=== PATIENT | female | born 1950 | race Caucasian/White ===

== ENCOUNTER 2019-05-07 16:22 | Emergency (ER) | payer MEDICARE ==
[~2019-05-07] VITALS: Ht 162.6 cm; Wt 59.9 kg
--- NOTE | 2019-05-07 16:21 | NUR ---
Note undone in EDM - 05/07/19 at 1640 by MARCIAL ED Nurse Note: PT BROUGHT IN TO ER BY [id number] FROM HOME. AOX4. PT C/O FEELING WEAK AND DIZZY X 1 WEEK AGO. PT ALSO C/O NAUSEA, 2 EPISODES OF VOMITING AND DIARRHEA X TODAY. PT STATES SHE HAS BEEN THROWING UP ENSURE DRINK. PT STATES SHE HAD ABOUT 3 FALLS DUE TO DIZZINESS THIS WEEK AND DID HIT HER HEAD BUT DENIES LOC. ZOFRAN 4MG GIVEN EN ROUTE BY EMS. PT DENIES NAUSEA AT THIS TIME. NO ACTIVE VOMITING. VSS.
--- NOTE | 2019-05-07 16:22 | NUR ---
ED Nurse Note: PT BROUGHT IN TO ER BY [id number] FROM HOME. AOX4. PT C/O FEELING WEAK AND DIZZY X 1 WEEK AGO. PT ALSO C/O NAUSEA, 2 EPISODES OF VOMITING AND DIARRHEA X TODAY. PT STATES SHE HAS BEEN THROWING UP ENSURE DRINK. PT STATES SHE HAD ABOUT 3 FALLS DUE TO DIZZINESS THIS WEEK AND DID HIT HER HEAD BUT DENIES LOC. ZOFRAN 4MG GIVEN EN ROUTE BY EMS. PT DENIES NAUSEA AT THIS TIME. NO ACTIVE VOMITING. PT DENIES ANY PAIN. VSS.
[2019-05-07 16:37] VITALS: BP 122/87
--- NOTE | 2019-05-07 16:48 | NUR ---
ED Nurse Note: PT TO CT VIA DEE.
--- NOTE | 2019-05-07 17:10 | NUR ---
ED Nurse Note: PT BACK FROM CT VIA DEE.
[2019-05-07 17:19] LABS: HEMATOCRIT 35.5 % (37.0-47.0); HEMOGLOBIN 12.2 G/DL (12.0-16.0); LYMPHOCYTES % (AUTO) 14.7 % (20.0-45.0); MEAN CORPUSCULAR VOLUME 87 FL (80-99); NEUTROPHILS % (AUTO) 72.4 % (45.0-75.0); PLATELET COUNT 137 K/UL (150-450); RED BLOOD COUNT 4.06 M/UL (4.20-5.40); RED CELL DISTRIBUTION WIDTH 15.5 % (11.6-14.8); WHITE BLOOD COUNT 9.9 K/UL (4.8-10.8)
--- NOTE | 2019-05-07 17:35 | Diagnostic Imaging Report ---
Indication: Headache Technique: Contiguous 5 mm thick transaxial imaging of the head obtained in a Siemens Sensation [address] scanner. Soft tissue and bone windows generated. Automatic Exposure Control was utilized. Total Dose length Product (DLP): 1333.[address] Dose Index Volume (CTDIvol): 70.38 mGy Comparison: none Findings: There is a hypodense subdural collection over the right cerebral hemisphere measuring about 8 mm on transaxial images. This is likely an old subdural hematoma. There is no mass effect on the underlying cerebrum with relatively symmetric appearing sulci. There is no midline shift. Generalized atrophy of the brain is present. The ventricles are slightly prominent. Small cystic foci noted within the basal ganglia likely lacunar infarcts. Patchy low attenuation of periventricular white matter noted. IMPRESSION: No acute intracranial bleed, mass effect or edema. Suspected old subdural hematoma over the right cerebral convexity. Generalized atrophy of the brain and evidence of chronic small vessel disease. [facility] has communicated the preliminary results to the Emergency Department. Their findings are largely concordant with this report. The CT scanner at [facility] is accredited by the [employer] and the scans are performed using dose optimization techniques as appropriate to a performed exam including Automatic Exposure control.
[2019-05-07 17:38] LABS: ANION GAP 17 mmol/L (5-15); BLOOD UREA NITROGEN 20 mg/dL (7-18); CALCIUM 8.5 MG/DL (8.5-10.1); CARBON DIOXIDE 15 MMOL/L (21-32); CHLORIDE 102 MMOL/L (98-107); CREATININE 3.5 MG/DL (0.55-1.30); SODIUM 134 MMOL/L (136-145)
--- NOTE | 2019-05-07 17:46 | Emergency Room Report ---
History of Present Illness General Chief Complaint: Generalized Weakness Source: Patient, EMS Present Illness HPI 68-year-old female presents ED for evaluation. Brought in by EMS from home. Complaining of nausea and vomiting and diarrhea with dizziness x1 week. States that she felt very lightheaded and passed out a few times a few times this week hitting her head. Denies LOC. Denies any headache. Denies any blurry vision. Denies neck pain. Denies abdominal pain. Denies sick contacts or recent travel. Denies recent antibiotic use. No other aggravating relieving factors. Denies any other associated symptoms Allergies: Coded Allergies: No Known Allergies (Unverified , 05/07/19) Patient History Past Medical History: DM, HTN Past Surgical History: none Pertinent Family History: none Social History: Denies: smoking, alcohol use, drug use Now: No Immunizations: UTD Reviewed Nursing Documentation: PMH: Agreed; PSxH: Agreed Nursing Documentation-PMH Hx Hypertension: Yes Hx Diabetes: Yes Review of Systems All Other Systems: negative except mentioned in HPI Physical Exam Vital Signs Date Time Temp Pulse Resp B/P (MAP) Pulse Ox O2 Delivery O2 Flow Rate FiO2 05/07/19 16:16 98.8 111 16 91/60 (70) 98 Room Air Sp02 EP Interpretation: reviewed, normal General Appearance: no apparent distress, alert, GCS 15, non-toxic Head: normocephalic, atraumatic Eyes: bilateral eye normal inspection, bilateral eye PERRL ENT: hearing grossly normal, normal pharynx, no angioedema, normal voice Neck: full range of motion, supple/symm/no masses Respiratory: chest non-tender, lungs clear, normal breath sounds, speaking full sentences Cardiovascular #1: regular rate, rhythm, no edema Cardiovascular #2: 2+ carotid (R), 2+ carotid (L), 2+ radial (R), 2+ radial (L) , 2+ dorsalis pedis (R), 2+ dorsalis pedis (L) Gastrointestinal: normal bowel sounds, non tender, soft, non-distended, no guarding, no rebound Rectal: deferred Genitourinary: normal inspection, no CVA tenderness Musculoskeletal: back normal, gait/station normal, normal range of motion, non- tender Neurologic: alert, oriented x3, responsive, motor strength/tone normal, sensory intact, speech normal Psychiatric: judgement/insight normal, memory normal, mood/affect normal, no suicidal/homicidal ideation Reflexes: 3+ bicep (R), 3+ bicep (L), 3+ tricep (R), 3+ tricep (L), 3+ knee (R) , 3+ knee (L) Lymphatic: no adenopathy Procedures Critical Care Time Critical Care Time i. I feel this is a highly complex case requiring extensive working including EKG/Rhythm strip, Xray/CT/US, Blood/urine lab work, repeat exams while in ED, and administration of strong opiates/narcotics for pain control, admission to hospital or close patient follow up. Total time: 30 min bedside evaluation and treatment excludes procedures (EKG). Reason for critical care: chronic subdural, renal insufficiency Possible complications: hypotension, hypertension, SD, shock, arrhythmias, metabolic acidosis, end organ damage, respiratory failure. Interventions: labs, IVFS, EKG, CXR, CT. discussion with neurosurgery. Course: Patient presenting with dizziness, vomiting, diarrhea. Labs show elevated BUN/creatinine. Troponin negative. CT shows possible chronic subdural on right with no midline shift or mass-effect. Asymptomatic. Discussed with neurosurgery at [facility] and no acute intervention required. Consultations: nursing staff, EMS, family Performed by: Dr Maldonado Tolerated well condition = serious j. because of unstable vital signs this patient had a condition that could potentially threaten life or limb. I feel this is a critical patient who required my full attention while patient was considered critical. Total Critical Care Time excluding procedures was greater than 35 minutes Medical Decision Making Diagnostic Impression: Primary Impression: Dehydration Additional Impressions: Renal insufficiency Dizziness Gastroenteritis Chronic subdural hematoma ER Course Hospital Course 68 yo F presents with dizziness, diarrhea, vomiting. syncopal episodes Differential diagnoses include: SD/unstable angina, arrythmia, dehydration, CVA/ TIA Clinical course Patient placed on stretcher. on director of cardiac cath lab. After initial history and physical I ordered labs, EKG, chest x-ray, IVFs, CT Brain labs reviewed- no leukocytosis, hemoglobin/hematocrit ok, BUN/Cr elevated, trop negative, EKG- NSR no acute ischemic changes interpreted by me Chest x-ray- no acute process CT brain- chronic sudural on right, no mass effect or midline shift Patient states that about 3 weeks ago and 2 weeks ago she had mechanical falls and she hit her head. Did not seek medical attention at that time. Discussed with neurosurgery at [facility]. Given that subdural is chronic with no symptoms they do not believe patient requires emergent neurosurgical evaluation. I agree with their assessment Because of insurance patient will be transferred I. I feel this is a highly complex case requiring extensive working including EKG/Rhythm strip, Xray/CT/US, Blood/urine lab work, repeat exams while in ED, and administration of strong opiates/narcotics for pain control, admission to hospital or close patient follow up. Diagnosis -hydration, renal insufficiency, dizziness, gastroenteritis, chronic subdural hematoma transferred in serious condition Labs Test 05/07/19 16:45 White Blood Count 9.9 K/UL (4.8-10.8) Red Blood Count 4.06 M/UL (4.20-5.40) Hemoglobin 12.2 G/DL (12.0-16.0) Hematocrit 35.5 % (37.0-47.0) Mean Corpuscular Volume 87 FL (80-99) Mean Corpuscular Hemoglobin 30.1 PG (27.0-31.0) Mean Corpuscular Hemoglobin Concent 34.4 G/DL (32.0-36.0) Red Cell Distribution Width 15.5 % (11.6-14.8) Platelet Count 137 K/UL (150-450) Mean Platelet Volume 7.2 FL (6.5-10.1) Neutrophils (%) (Auto) 72.4 % (45.0-75.0) Lymphocytes (%) (Auto) 14.7 % (20.0-45.0) Monocytes (%) (Auto) 12.0 % (1.0-10.0) Eosinophils (%) (Auto) 0.0 % (0.0-3.0) Basophils (%) (Auto) 1.0 % (0.0-2.0) Sodium Level 134 MMOL/L (136-145) Potassium Level 4.0 MMOL/L (3.5-5.1) Chloride Level 102 MMOL/L (98-107) Carbon Dioxide Level 15 MMOL/L (21-32) Anion Gap 17 mmol/L (5-15) Blood Urea Nitrogen 20 mg/dL (7-18) Creatinine 3.5 MG/DL (0.55-1.30) Estimat Glomerular Filtration Rate 13.1 mL/min (>60) Glucose Level 122 MG/DL (74-106) Calcium Level 8.5 MG/DL (8.5-10.1) Total Bilirubin 0.4 MG/DL (0.2-1.0) Aspartate Amino Transf (AST/SGOT) 34 U/L (15-37) Alanine Aminotransferase (ALT/SGPT) 28 U/L (12-78) Alkaline Phosphatase 73 U/L (46-116) Total Creatine Kinase 151 U/L (26-308) Creatine Kinase MB 3.3 NG/ML (0.0-3.6) Creatine Kinase MB Relative Index 2.1 Troponin I 0.000 ng/mL (0.000-0.056) Total Protein 6.9 G/DL (6.4-8.2) Albumin 3.1 G/DL (3.4-5.0) Globulin 3.8 g/dL Albumin/Globulin Ratio 0.8 (1.0-2.7) EKG Diagnostic Results Rate: normal Rhythm: NSR ST Segments: no acute changes ASA given to the pt in ED: No Rhythm Strip Diag. Results EP Interpretation: yes Rhythm: NSR, no PVC's, no ectopy Chest X-Ray Diagnostic Results Chest X-Ray Diagnostic Results : Chest X-Ray Ordered: Yes # of Views/Limited/Complete: 1 View Indication: Other EP Interpretation: Yes Interpretation: no consolidation, no effusion, no pneumothorax, no acute cardiopulmonary disease Impression: No acute disease Electronically Signed by: Electronically signed by Viet Maldonado MD CT/MRI/US Diagnostic Results CT/MRI/US Diagnostic Results : Imaging Test Ordered: CT Head Impression No acute intracranial abnormality identified. Prominence of the CSF space along the right cerebral hemisphere may represent a chronic subdural hematoma or CSF hygroma measuring approximately 7.5 mm in thickness. No significant midline shift. Chronic small vessel ischemic disease and cerebral volume loss. Small remote lacunar infarcts in the basal ganglia. Atherosclerotic calcifications in the intracranial vasculature. Last Vital Signs Date Time Temp Pulse Resp B/P (MAP) Pulse Ox O2 Delivery O2 Flow Rate FiO2 05/07/19 16:37 98.6 93 18 122/87 100 Room Air Status: improved Disposition: XFER SHT-TRM HOSP Condition: Serious Viet Maldonado MD May 07, 2019 17:46
[2019-05-07 17:52] LABS: ALANINE AMINOTRANSFERASE 28 U/L (12-78); ALBUMIN 3.1 G/DL (3.4-5.0); ALBUMIN/GLOBULIN RATIO 0.8 (1.0-2.7); ALKALINE PHOSPHATASE 73 U/L (46-116); ASPARTATE AMINO TRANSFERASE 34 U/L (15-37); BILIRUBIN,TOTAL 0.4 MG/DL (0.2-1.0); CKMB 3.3 NG/ML (0.0-3.6); CREATINE KINASE 151 U/L (26-308)
--- NOTE | 2019-05-07 18:10 | NUR ---
ED Nurse Note: PT REMINDED URINE SAMPLE IS NEEDED. PT STATES SHE DOES NOT HAVE TO URINATE AT THIS TIME.
--- NOTE | 2019-05-07 18:49 | NUR ---
ED Nurse Note: PT AMBULATED TO RESTROOM WITH STEADY GAIT. PT REMINDED URINE SAMPLE IS NEEDED.
--- NOTE | 2019-05-07 18:55 | NUR ---
ED Nurse Note: PT AMBULATED BACK TO ROOM FROM BATHROOM BUT STATES SHE WAS UNABLE TO PROVIDE URINE SAMPLE.
--- NOTE | 2019-05-07 19:09 | NUR ---
HAND-OFF: REPORT GIVEN TO TRICIA SINGH.
[2019-05-07 19:22] VITALS: BP 120/84
--- NOTE | 2019-05-07 19:23 | NUR ---
ER Nurse Note: Pt a&ox4, VSS, RA, no signs of distress. Pt complains about LT shoulder pain; 2/10 from fall; does not want pain meds. Skin intact. Pt is aware of transfer. All safety measures met; will continue to [facility].
--- NOTE | 2019-05-07 22:08 | NUR ---
ER Nurse Note: Report given to TRICIA Broderick at [facility] for continuity of care. Pt a&ox4, VSS, no signs of distress. Pt denies n/v/d, shortness of breath, dizziness. Pt content, no skin breakdown. Urine sample provided. All safety measures met. Will continue to [facility].
[2019-05-07 22:11] VITALS: BP 126/70
[2019-05-07 22:27] LABS: APPEARANCE,URINE SLIGHTLY CLOUDY; BILIRUBIN, URINE 2+ (NEGATIVE); COLOR,URINE BROWN; GLUCOSE, URINE (UA) NEGATIVE (NEGATIVE); KETONES,URINE 1+ (NEGATIVE); LEUKOCYTE ESTERASE ,URINE 1+ (NEGATIVE); NITRITE,URINE NEGATIVE (NEGATIVE); PH,URINE 5 (4.5-8.0); PROTEIN,URINE 2+ (NEGATIVE); UROBILINOGEN,URINE 1 MG/DL (0.0-1.0)
[2019-05-07] MEDS ORDERED: LORazepam Inj 2mg/ml 1ml IV ONE (23:15)
[2019-05-08 00:15] VITALS: BP 100/68
--- NOTE | 2019-05-08 00:15 | NUR ---
ER Nurse Note: Pt discharged from [facility]; transfered to [facility] for contintuiy of care. SLIV patent. Pt left with all belongings.
--- NOTE | 2019-05-08 12:36 | Diagnostic Imaging Report ---
Indication: Dyspnea Comparison: None A single view chest radiograph was obtained. Findings: Cardiomediastinal appearance is within normal limits for age. The lungs are clear. Pulmonary vascularity is appropriate. The diaphragmatic contour is smooth and costophrenic angles are sharp. No pleural effusions are identified. The bones are osteopenic. Impression: No acute findings
--- NOTE | 2019-05-10 15:23 | Cardiology Report ---
APPROVED REPORT EKG Measurement Heart [id number] Normal sinus rhythm Nonspecific ST and T wave abnormality Abnormal ECG
== END 2019-05-08 00:15 | disposition short-term general hospital (02) ==
LOC: EDBD 16:22 → EMR 17:00
DX: E86.0 Dehydration (principal); N28.9 Disorder of kidney and ureter, unspecified; R42 Dizziness and giddiness; K52.9 Noninfective gastroenteritis and colitis, unspecified; I62.03 Nontraumatic chronic subdural hemorrhage; E11.9 Type 2 diabetes mellitus without complications; I10 Essential (primary) hypertension
CPT/HCPCS: 36415; 70450; 71045; 80053; 81003; 82550; 82553; 84484; 85025; 87086; 93005; 96361; 96374; 96375; 99291; J2405

== ENCOUNTER 2019-12-18 12:47 | Inpatient (IN) | payer MEDICARE ==
[~2019-12-18] VITALS: Ht 165.1 cm; Wt 72.6 kg
[2019-12-18 13:03] VITALS: BP 180/82
--- NOTE | 2019-12-18 14:54 | Emergency Room Report ---
History of Present Illness General Chief Complaint: Nausea, Vomiting, and Diarrhea Source: Patient Present Illness Allergies: Coded Allergies: No Known Allergies (Unverified , 05/07/19) COVID-19 Screening Contact w/high risk pt: No Recent Travel to affected area: No Experienced COVID-19 symptoms?: No Patient History Now: No Nursing Documentation-PM Past Medical History: No History, Except For Hx Hypertension: Yes Hx Diabetes: Yes Physical Exam Vital Signs Date Time Temp Pulse Resp B/P (MAP) Pulse Ox O2 Delivery O2 Flow Rate FiO2 12/18/19 12:39 97.9 88 17 180/82 (114) 97 Room Air Medical Decision Making Diagnostic Impression: Primary Impression: Nausea, vomiting, and diarrhea Additional Impression: Weakness ER Course This report was made in error. Please see my other note. EKG Diagnostic Results Rate: normal Rhythm: NSR ST Segments: no acute changes Rhythm Strip Diag. Results EP Interpretation: yes Rate: 80's Rhythm: NSR, no PVC's, no ectopy Last Vital Signs Date Time Temp Pulse Resp B/P (MAP) Pulse Ox O2 Delivery O2 Flow Rate FiO2 12/18/19 13:03 97.9 17 180/82 97 Room Air 12/18/19 12:39 88 Scripts No Active Prescriptions or Reported Meds Referrals: DAVON FERGUSON (PCP) Misty Conti DO Dec 18, 2019 14:54
--- NOTE | 2019-12-18 14:55 | Emergency Room Report ---
History of Present Illness General Chief Complaint: Nausea, Vomiting, and Diarrhea Source: Patient (Misty Conti DO) Present Illness HPI This patient presents with a few days of nausea, vomiting and diarrhea. Patient states she has become very weak and has fallen several times. She denies injuries during these falls. She states she also feels lightheaded. She states she can no longer tolerate the symptoms. She denies chest pain or shortness of breath. She denies cough or congestion. She denies fever. She has no other complaints. (Misty Conti DO) Allergies: Coded Allergies: No Known Allergies (Unverified , 05/07/19) COVID-19 Screening Contact w/high risk pt: No Recent Travel to affected area: No Experienced COVID-19 symptoms?: No (Misty Conti DO) Patient History Past Medical History: see triage record, DM, HTN Social History: Denies: smoking, alcohol use, drug use Now: No Reviewed Nursing Documentation: PMH: Agreed; PSxH: Agreed (Misty Conti DO) Nursing Documentation-PMH Past Medical History: No History, Except For Hx Hypertension: Yes Hx Diabetes: Yes (Misty Conti DO) Review of Systems All Other Systems: negative except mentioned in HPI (Misty Conti DO) Physical Exam Vital Signs Date Time Temp Pulse Resp B/P (MAP) Pulse Ox O2 Delivery O2 Flow Rate FiO2 12/18/19 12:39 97.9 88 17 180/82 (114) 97 Room Air Sp02 EP Interpretation: reviewed, normal General Appearance: no apparent distress, alert, GCS 15, non-toxic Head: normocephalic, atraumatic Eyes: bilateral eye normal inspection, bilateral eye PERRL ENT: hearing grossly normal, normal pharynx, no angioedema, normal voice Neck: full range of motion, supple/symm/no masses Respiratory: chest non-tender, lungs clear, normal breath sounds, no respiratory distress, no retraction, no accessory muscle use, speaking full sentences Cardiovascular #1: regular rate, rhythm, no edema Gastrointestinal: normal bowel sounds, non tender, soft, non-distended, no guarding, no rebound Rectal: deferred Musculoskeletal: back normal, normal range of motion, non-tender Neurologic: alert, motor strength/tone normal, oriented x3, sensory intact, responsive, speech normal Psychiatric: judgement/insight normal, memory normal, mood/affect normal, no suicidal/homicidal ideation Skin: no rash, normal color (Misty Conti DO) Medical Decision Making Diagnostic Impression: Primary Impression: Nausea, vomiting, and diarrhea Additional Impression: Weakness ER Course This patient presented with nausea, vomiting, diarrhea and generalized weakness. She states she has multiple falls and is alone at home and is unable to care for herself. This patient is pending labs. She is given IV fluids. The patient is turned over to Dr. Singer. Please see his addendum. Overall, the patient is stable and nontoxic. (Misty Conti DO) ER Course Please refer to the initial note for the history exam and presentation patient had IV established and hydration performed along with nausea medicine Patient's blood work reveals low sodium and low CO2 Consistent with dehydration patient further hydrated and later also complains of ongoing nausea Provided with further medication patient also continues to feel very weak and at this time requires further inpatient care and evaluation Dr Coughlin is designated to Dr. Megan vázquez at [facility] and the group is contacted for further inpatient care Labs Test 12/18/19 13:00 12/18/19 15:30 White Blood Count 6.0 K/UL (4.8-10.8) Red Blood Count 3.66 M/UL (4.20-5.40) Hemoglobin 10.7 G/DL (12.0-16.0) Hematocrit 33.7 % (37.0-47.0) Mean Corpuscular Volume 92 FL (80-99) Mean Corpuscular Hemoglobin 29.4 PG (27.0-31.0) Mean Corpuscular Hemoglobin Concent 31.9 G/DL (32.0-36.0) Red Cell Distribution Width 15.7 % (11.6-14.8) Platelet Count 191 K/UL (150-450) Mean Platelet Volume 8.1 FL (6.5-10.1) Neutrophils (%) (Auto) 66.3 % (45.0-75.0) Lymphocytes (%) (Auto) 23.6 % (20.0-45.0) Monocytes (%) (Auto) 7.1 % (1.0-10.0) Eosinophils (%) (Auto) 1.2 % (0.0-3.0) Basophils (%) (Auto) 1.8 % (0.0-2.0) Sodium Level 129 MMOL/L (136-145) Potassium Level 4.7 MMOL/L (3.5-5.1) Chloride Level 97 MMOL/L (98-107) Carbon Dioxide Level 18 MMOL/L (21-32) Anion Gap 14 mmol/L (5-15) Blood Urea Nitrogen 8 mg/dL (7-18) Creatinine 1.0 MG/DL (0.55-1.30) Estimat Glomerular Filtration Rate > 60 mL/min (>60) Glucose Level 105 MG/DL (74-106) Calcium Level 8.6 MG/DL (8.5-10.1) Total Bilirubin 0.3 MG/DL (0.2-1.0) Aspartate Amino Transf (AST/SGOT) 80 U/L (15-37) Alanine Aminotransferase (ALT/SGPT) 42 U/L (12-78) Alkaline Phosphatase 130 U/L (46-116) Troponin I 0.000 ng/mL (0.000-0.056) Total Protein 6.6 G/DL (6.4-8.2) Albumin 3.1 G/DL (3.4-5.0) Globulin 3.5 g/dL Albumin/Globulin Ratio 0.9 (1.0-2.7) Urine Color Pale yellow Urine Appearance Clear Urine pH 5 (4.5-8.0) Urine Specific [place] 1.005 (1.005-1.035) Urine Protein Negative (NEGATIVE) Urine Glucose (UA) Negative (NEGATIVE) Urine Ketones Negative (NEGATIVE) Urine Blood Negative (NEGATIVE) Urine Nitrite Negative (NEGATIVE) Urine Bilirubin Negative (NEGATIVE) Urine Urobilinogen Normal MG/DL (0.0-1.0) Urine Leukocyte Esterase Negative (NEGATIVE) (Shelia Singer DO) Rhythm Strip Diag. Results EP Interpretation: yes Rate: 66 Rhythm: NSR, no PVC's, no ectopy (Shelia Singer DO) Chest X-Ray Diagnostic Results Chest X-Ray Diagnostic Results : Chest X-Ray Ordered: Yes # of Views/Limited/Complete: 1 View Indication: Chest Pain EP Interpretation: Yes Interpretation: no consolidation, no effusion, no pneumothorax Impression: No acute disease Electronically Signed by: Shelia Singer DO (Shelia Singer DO) Last Vital Signs Date Time Temp Pulse Resp B/P (MAP) Pulse Ox O2 Delivery O2 Flow Rate FiO2 12/18/19 13:03 97.9 17 180/82 97 Room Air 12/18/19 12:39 88 (Misty Conti DO) Status: improved (Shelia Singer DO) Disposition: ADMITTED INPATIENT Condition: Serious Scripts No Active Prescriptions or Reported Meds Referrals: DAVON COUGHLIN (PCP) Misty Conti DO Dec 18, 2019 14:54 Shelia Singer DO Dec 18, 2019 17:41
[2019-12-18 15:03] VITALS: BP 132/77
[2019-12-18 15:05] LABS: ANION GAP 14 mmol/L (5-15); BLOOD UREA NITROGEN 8 mg/dL (7-18); CALCIUM 8.6 MG/DL (8.5-10.1); CARBON DIOXIDE 18 MMOL/L (21-32); CHLORIDE 97 MMOL/L (98-107); POTASSIUM 4.7 MMOL/L (3.5-5.1); SODIUM 129 MMOL/L (136-145)
[2019-12-18 15:08] LABS: BASOPHILS % (AUTO) 1.8 % (0.0-2.0); EOSINOPHILS % (AUTO) 1.2 % (0.0-3.0); HEMATOCRIT 33.7 % (37.0-47.0); HEMOGLOBIN 10.7 G/DL (12.0-16.0); LYMPHOCYTES % (AUTO) 23.6 % (20.0-45.0); MEAN CORPUSCULAR VOLUME 92 FL (80-99); MONOCYTES % (AUTO) 7.1 % (1.0-10.0); NEUTROPHILS % (AUTO) 66.3 % (45.0-75.0); PLATELET COUNT 191 K/UL (150-450); RED BLOOD COUNT 3.66 M/UL (4.20-5.40); RED CELL DISTRIBUTION WIDTH 15.7 % (11.6-14.8)
[2019-12-18 15:10] LABS: ALANINE AMINOTRANSFERASE 42 U/L (12-78); ALBUMIN 3.1 G/DL (3.4-5.0); ALBUMIN/GLOBULIN RATIO 0.9 (1.0-2.7); ALKALINE PHOSPHATASE 130 U/L (46-116); ASPARTATE AMINO TRANSFERASE 80 U/L (15-37); BILIRUBIN,TOTAL 0.3 MG/DL (0.2-1.0)
[2019-12-18 15:56] LABS: APPEARANCE,URINE CLEAR; BILIRUBIN, URINE NEGATIVE (NEGATIVE); COLOR,URINE PALE YELLOW; GLUCOSE, URINE (UA) NEGATIVE (NEGATIVE); KETONES,URINE NEGATIVE (NEGATIVE); LEUKOCYTE ESTERASE ,URINE NEGATIVE (NEGATIVE); NITRITE,URINE NEGATIVE (NEGATIVE); PH,URINE 5 (4.5-8.0); PROTEIN,URINE NEGATIVE (NEGATIVE); UROBILINOGEN,URINE NORMAL MG/DL (0.0-1.0)
--- NOTE | 2019-12-18 16:06 | Diagnostic Imaging Report ---
Indication: Shortness of breath Technique: One view of the chest Comparison: 05/07/2019 Findings: Lungs and pleural spaces are clear. Heart size is normal. The right hemidiaphragm is elevated. No significant change Impression: No acute process
[2019-12-18 17:03] VITALS: BP 122/79
[2019-12-18] MEDS ORDERED: HydrALAZINE 10mg Tab ORAL PRN (17:45)
[2019-12-18 18:30] VITALS: BP 163/100
[2019-12-18 20:00] VITALS: BP 131/83
[2019-12-18] MEDS: Docusate 100mg cap ORAL SCH (20:33)
[2019-12-18] MEDS: Enoxaparin 40mg Inj SUBQ SCH (20:39)
--- NOTE | 2019-12-18 20:59 | History and Physical ---
History of Present Illness General Date patient seen: Dec 18, 2019 Reason for Hospitalization: Nausea, Vomiting, and Diarrhea, electrolyte derangment. Present Illness HPI Ms. Cruz is a 68 YO F with non-insulin dependant type II DM, and essential hypertension presenting with vomiting and diarrhea x 2 weeks. She reports of 5- 6 episodes of non-bloody watery diarrhea per day in addition to non-bloody emesis. She has also felt very lethargic and weak. She reports of poor oral intake because of the severe nausea and vomiting. She has held her home Benazepril because of "low blood pressure". Patient reports of similar signs and symptoms about a year ago for which she was hospitalized and was treated for "dehydration". Patient adds that she has never undergone screening colonoscopy in the past. Patient denies any cp, sob, near syncope, syncope, change in weight. She denies any fever, chills, cough, dysuria, muscle pain, joint pain or recent travel or sick contact. On arrival to the ED, vitals were within the normal range. The CBC showed serum hgb: 10.7 with no leukocytosis. The BMP signficant for hyponatremia: 129. The liver function panel significant for AST: 80 She is being admitted for further observation and medical management. Allergies: Coded Allergies: No Known Allergies (Unverified , 05/07/19) COVID-19 Screening Contact w/high risk pt: No Recent Travel to affected area: No Experienced COVID-19 symptoms?: No Medication History No Active Prescriptions or Reported Meds Patient History Healthcare decision maker Resuscitation status Advanced Directive on File Past Medical/Surgical History Past Medical/Surgical History: (1) Type II diabetes mellitus (2) Hypertension (3) Alcoholism Review of Systems Constitutional: Reports: no symptoms Eye: Reports: no symptoms ENT: Reports: no symptoms Respiratory: Reports: no symptoms Cardiovascular: Reports: no symptoms Gastrointestinal: Reports: diarrhea, nausea, vomiting Genitourinary: Reports: no symptoms Musculoskeletal: Reports: no symptoms Skin: Reports: no symptoms Psychiatric: Reports: no symptoms Neurological: Reports: no symptoms Endocrine: Reports: no symptoms Hematologic/Lymphatic: Reports: no symptoms Physical Exam General Appearance: alert, lethargic, thin Lines, tubes and drains: peripheral HEENT: normocephalic, atraumatic Neck: non-tender, normal inspection Respiratory/Chest: chest wall non-tender, lungs clear, normal breath sounds, no respiratory distress, no accessory muscle use Cardiovascular/Chest: normal peripheral pulses, normal rate, regular rhythm Abdomen: normal bowel sounds, non tender, soft, no organomegaly, no mass Extremities: normal range of motion, non-tender, normal inspection, no calf tenderness, no edema Skin Exam: normal pigmentation 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 Last 24 Hour Vital Signs Date Time Temp Pulse Resp B/P (MAP) Pulse Ox O2 Delivery O2 Flow Rate FiO2 12/18/19 20:00 98.5 95 17 131/83 (99) 99 12/18/19 19:03 Room Air 12/18/19 18:30 97.8 104 18 163/100 (121) 98 12/18/19 18:28 98.0 77 19 131/81 98 Room Air 12/18/19 17:03 98.2 76 17 122/79 96 Room Air 12/18/19 15:03 98.0 87 18 132/77 99 Room Air 12/18/19 13:03 97.9 17 180/82 97 Room Air 12/18/19 12:39 97.9 88 17 180/82 (114) 97 Room Air Laboratory Tests Test 12/18/19 13:00 12/18/19 15:30 White Blood Count 6.0 K/UL (4.8-10.8) Red Blood Count 3.66 M/UL (4.20-5.40) L Hemoglobin 10.7 G/DL (12.0-16.0) L Hematocrit 33.7 % (37.0-47.0) L Mean Corpuscular Volume 92 FL (80-99) Mean Corpuscular Hemoglobin 29.4 PG (27.0-31.0) Mean Corpuscular Hemoglobin Concent 31.9 G/DL (32.0-36.0) L Red Cell Distribution Width 15.7 % (11.6-14.8) H Platelet Count 191 K/UL (150-450) Mean Platelet Volume 8.1 FL (6.5-10.1) Neutrophils (%) (Auto) 66.3 % (45.0-75.0) Lymphocytes (%) (Auto) 23.6 % (20.0-45.0) Monocytes (%) (Auto) 7.1 % (1.0-10.0) Eosinophils (%) (Auto) 1.2 % (0.0-3.0) Basophils (%) (Auto) 1.8 % (0.0-2.0) Sodium Level 129 MMOL/L (136-145) L Potassium Level 4.7 MMOL/L (3.5-5.1) Chloride Level 97 MMOL/L (98-107) L Carbon Dioxide Level 18 MMOL/L (21-32) L Anion Gap 14 mmol/L (5-15) Blood Urea Nitrogen 8 mg/dL (7-18) Creatinine 1.0 MG/DL (0.55-1.30) Estimat Glomerular Filtration Rate > 60 mL/min (>60) Glucose Level 105 MG/DL (74-106) Osmolality 299 mOsm/kg (297-317) Calcium Level 8.6 MG/DL (8.5-10.1) Total Bilirubin 0.3 MG/DL (0.2-1.0) Aspartate Amino Transf (AST/SGOT) 80 U/L (15-37) H Alanine Aminotransferase (ALT/SGPT) 42 U/L (12-78) Alkaline Phosphatase 130 U/L (46-116) H Troponin I 0.000 ng/mL (0.000-0.056) Total Protein 6.6 G/DL (6.4-8.2) Albumin 3.1 G/DL (3.4-5.0) L Globulin 3.5 g/dL Albumin/Globulin Ratio 0.9 (1.0-2.7) L Urine Color Pale yellow Urine Appearance Clear Urine pH 5 (4.5-8.0) Urine Specific [place] 1.005 (1.005-1.035) Urine Protein Negative (NEGATIVE) Urine Glucose (UA) Negative (NEGATIVE) Urine Ketones Negative (NEGATIVE) Urine Blood Negative (NEGATIVE) Urine Nitrite Negative (NEGATIVE) Urine Bilirubin Negative (NEGATIVE) Urine Urobilinogen Normal MG/DL (0.0-1.0) Urine Leukocyte Esterase Negative (NEGATIVE) Height (Feet): 5 Height (Inches): 3.00 Weight (Pounds): 160 Medications Current Medications Medications (Trade) Dose Ordered Sig/Lucas Route PRN Reason Start Time Stop Time Status Last Admin Dose Admin Acetaminophen (Tylenol) 650 mg Q4H PRN ORAL Mild Pain/Temp >100.5 12/18/19 17:45 01/17/20 17:44 Bisacodyl (Dulcolax) 10 mg HSPRN PRN RECTAL Constipation 12/18/19 21:00 03/17/20 20:59 Dextrose (Dextrose 50%) 25 ml Q30M PRN IV Hypoglycemia 12/18/19 17:45 03/17/20 17:44 Dextrose (Dextrose 50%) 50 ml Q30M PRN IV Hypoglycemia 12/18/19 17:45 03/17/20 17:44 Docusate Sodium (Colace) 100 mg EVERY 12 HOURS ORAL 12/18/19 21:00 01/17/20 20:59 Enoxaparin Sodium (Lovenox) 40 mg Q24H SUBQ 12/18/19 21:00 03/17/20 20:59 12/18/19 20:39 Hydralazine HCl (Apresoline) 10 mg Q6HR PRN ORAL htn 12/18/19 17:45 03/17/20 17:44 Magnesium Hydroxide (Mom) 30 ml HSPRN PRN ORAL Constipation 12/18/19 21:00 01/17/20 20:59 Ondansetron HCl (Zofran) 4 mg Q6H PRN IVP Nausea & Vomiting 12/18/19 17:45 01/17/20 17:44 12/18/19 20:38 Polyethylene Glycol (Miralax) 17 gm HSPRN PRN ORAL Constipation 12/18/19 21:00 01/17/20 20:59 Assessment/Plan Assessment/Plan: 68F with DM, HTN and ETOH dependance presenting with 2 week onset of nausea, vomiting and diarrhea. Medical work up consistent with hyponatremia with serum Na: 129 and physical examination significant for hypovolumic state. Patient being admitted for further observation and medical management #Intractable nausea #Diarrhea -Likely viral vs. gastroenteritis in etiology -Continue with IVF hydration. -PRN antiemetics. -PO diet as tolerated. -Monitor electrolytes. -Stool pathogens and C.Diff studies. -CT of A/P w/ and w/o contrast ordered. Please follow results. -Consider empiric tx with Cipro and Flagyl if symptoms not resolved. -GI consult in A.M. #Hypovolumic Hyponatremia: -In the setting of dehydration. -Serum Na: 129. -s/p 1L of IV N.S in the ED. -Continue IV N.S @75cc/hr. -Dr. Pitt of Nephrology consulted. Appreciate further recommendations. #Essential hypertension: -Currently normotensive. -Continue to monitor. -Resume home Benazepril once dosage is verified. #Transaminitis #ETOH dependance -AST 80, ALT: 42 consistent with alcoholic liver disease -Last drink > 1 week ago. -Continue to monitor. -GI consult appreciated. #Non-insulin dependant type II DM: -Insulin SS -Diabetic diet. #Normocytic Anemia -Serum hgb: 10.7 -No signs of acute bleed. -Continue to monitor. I spent 70 minutes on this patient's case, and >50% was dedicated to counseling and/or care coordination. ~I spent an additional 35 minutes on review of medical records including prior records, consult notes, progress notes, procedures, imaging, labs, hemodynamics , and other clinical documentation. Rashawn Malin M.D. Dec 18, 2019 20:59
[2019-12-18] MEDS ORDERED: Miralax 17gm pkt ORAL PRN (21:00)
[2019-12-18] MEDS ORDERED: Milk of Magnesia 30ml Ud ORAL PRN (21:00)
--- NOTE | 2019-12-18 21:23 | Consultation ---
History of Present Illness General Chief Complaint: Nausea, Vomiting, and Diarrhea Present Illness HPI 68 YO F with non-insulin dependant type II DM, and essential hypertension presenting with vomiting and diarrhea x 2 weeks. She reports of 5-6 episodes of non-bloody watery diarrhea per day in addition to non-bloody emesis. She has also felt very lethargic and weak. She reports of poor oral intake because of the severe nausea and vomiting. She has held her home Benazepril because of "low blood pressure". Patient reports of similar signs and symptoms about a year ago for which she was hospitalized and was treated for "dehydration". Patient adds that she has never undergone screening colonoscopy in the past. Patient denies any cp, sob, near syncope, syncope, change in weight. She denies any fever, chills, cough, dysuria, muscle pain, joint pain or recent travel or sick contact. The BMP signficant for hyponatremia: 129. nephrology consulted for management of hyponatremia Allergies: Coded Allergies: No Known Allergies (Unverified , 05/07/19) Medication History No Active Prescriptions or Reported Meds Patient History Healthcare decision maker Resuscitation status Full Code Advanced Directive on File Review of Systems All Other Systems: negative except mentioned in HPI Physical Exam General Appearance: cachetic, thin Lines, tubes and drains: peripheral HEENT: normocephalic, atraumatic Neck: non-tender Respiratory/Chest: chest wall non-tender, lungs clear Cardiovascular/Chest: normal rate, regular rhythm Abdomen: non tender, soft, no organomegaly Extremities: normal range of motion, non-tender Neurologic: alert, oriented x 3 Last 24 Hour Vital Signs Date Time Temp Pulse Resp B/P (MAP) Pulse Ox O2 Delivery O2 Flow Rate FiO2 12/18/19 20:00 98.5 95 17 131/83 (99) 99 12/18/19 19:03 Room Air 12/18/19 18:30 97.8 104 18 163/100 (121) 98 12/18/19 18:28 98.0 77 19 131/81 98 Room Air 12/18/19 17:03 98.2 76 17 122/79 96 Room Air 12/18/19 15:03 98.0 87 18 132/77 99 Room Air 12/18/19 13:03 97.9 17 180/82 97 Room Air 12/18/19 12:39 97.9 88 17 180/82 (114) 97 Room Air Laboratory Tests Test 12/18/19 13:00 12/18/19 15:30 White Blood Count 6.0 K/UL (4.8-10.8) Red Blood Count 3.66 M/UL (4.20-5.40) L Hemoglobin 10.7 G/DL (12.0-16.0) L Hematocrit 33.7 % (37.0-47.0) L Mean Corpuscular Volume 92 FL (80-99) Mean Corpuscular Hemoglobin 29.4 PG (27.0-31.0) Mean Corpuscular Hemoglobin Concent 31.9 G/DL (32.0-36.0) L Red Cell Distribution Width 15.7 % (11.6-14.8) H Platelet Count 191 K/UL (150-450) Mean Platelet Volume 8.1 FL (6.5-10.1) Neutrophils (%) (Auto) 66.3 % (45.0-75.0) Lymphocytes (%) (Auto) 23.6 % (20.0-45.0) Monocytes (%) (Auto) 7.1 % (1.0-10.0) Eosinophils (%) (Auto) 1.2 % (0.0-3.0) Basophils (%) (Auto) 1.8 % (0.0-2.0) Sodium Level 129 MMOL/L (136-145) L Potassium Level 4.7 MMOL/L (3.5-5.1) Chloride Level 97 MMOL/L (98-107) L Carbon Dioxide Level 18 MMOL/L (21-32) L Anion Gap 14 mmol/L (5-15) Blood Urea Nitrogen 8 mg/dL (7-18) Creatinine 1.0 MG/DL (0.55-1.30) Estimat Glomerular Filtration Rate > 60 mL/min (>60) Glucose Level 105 MG/DL (74-106) Osmolality 299 mOsm/kg (297-317) Calcium Level 8.6 MG/DL (8.5-10.1) Total Bilirubin 0.3 MG/DL (0.2-1.0) Aspartate Amino Transf (AST/SGOT) 80 U/L (15-37) H Alanine Aminotransferase (ALT/SGPT) 42 U/L (12-78) Alkaline Phosphatase 130 U/L (46-116) H Troponin I 0.000 ng/mL (0.000-0.056) Total Protein 6.6 G/DL (6.4-8.2) Albumin 3.1 G/DL (3.4-5.0) L Globulin 3.5 g/dL Albumin/Globulin Ratio 0.9 (1.0-2.7) L Urine Color Pale yellow Urine Appearance Clear Urine pH 5 (4.5-8.0) Urine Specific Martin 1.005 (1.005-1.035) Urine Protein Negative (NEGATIVE) Urine Glucose (UA) Negative (NEGATIVE) Urine Ketones Negative (NEGATIVE) Urine Blood Negative (NEGATIVE) Urine Nitrite Negative (NEGATIVE) Urine Bilirubin Negative (NEGATIVE) Urine Urobilinogen Normal MG/DL (0.0-1.0) Urine Leukocyte Esterase Negative (NEGATIVE) Height (Feet): 5 Height (Inches): 3.00 Weight (Pounds): 160 Medications Current Medications Medications (Trade) Dose Ordered Sig/Lucas Route PRN Reason Start Time Stop Time Status Last Admin Dose Admin Acetaminophen (Tylenol) 650 mg Q4H PRN ORAL Mild Pain/Temp >100.5 12/18/19 17:45 01/17/20 17:44 Bisacodyl (Dulcolax) 10 mg HSPRN PRN RECTAL Constipation 12/18/19 21:00 03/17/20 20:59 Dextrose (Dextrose 50%) 25 ml Q30M PRN IV Hypoglycemia 12/18/19 17:45 03/17/20 17:44 Dextrose (Dextrose 50%) 50 ml Q30M PRN IV Hypoglycemia 12/18/19 17:45 03/17/20 17:44 Docusate Sodium (Colace) 100 mg EVERY 12 HOURS ORAL 12/18/19 21:00 01/17/20 20:59 Enoxaparin Sodium (Lovenox) 40 mg Q24H SUBQ 12/18/19 21:00 03/17/20 20:59 12/18/19 20:39 Hydralazine HCl (Apresoline) 10 mg Q6HR PRN ORAL htn 12/18/19 17:45 03/17/20 17:44 Magnesium Hydroxide (Mom) 30 ml HSPRN PRN ORAL Constipation 12/18/19 21:00 01/17/20 20:59 Ondansetron HCl (Zofran) 4 mg Q6H PRN IVP Nausea & Vomiting 12/18/19 17:45 01/17/20 17:44 12/18/19 20:38 Polyethylene Glycol (Miralax) 17 gm HSPRN PRN ORAL Constipation 12/18/19 21:00 01/17/20 20:59 Assessment/Plan Diagnosis [place] [facility]: #Hyponatremia- hypovolumic in the setting of nausea, emesis and diarrhea #Hypomag due to decreased PO intake and diarrhea #nausea, emesis, diarrhea #Alcohol dependence #HTN #Anemia - continue with NS at 75cc/hr - replete mag - GI eval - antemetics - monitor for withdrawal - monitor lyte - avoid nephrotoxins - check iron panel - GI eval Virginia Pitt M.D. Dec 18, 2019 21:23
[2019-12-19] VITALS: BP 143/87
[2019-12-19] MEDS ORDERED: Zolpidem 5mg tab ORAL SCH (01:45)
[2019-12-19] MEDS ORDERED: Zolpidem 5mg tab ORAL ONE (01:45)
[2019-12-19] MEDS ORDERED: Omnipaque-300 100ml vial INJ PRN (02:00)
[2019-12-19 04:00] VITALS: BP 148/83
[2019-12-19] MEDS: NovoLOG Insulin Flexpen SUBQ SCH ×4 (06:30→21:00)
[2019-12-19 06:35] LABS: ALANINE AMINOTRANSFERASE 37 U/L (12-78); ALBUMIN 2.7 G/DL (3.4-5.0); ALBUMIN/GLOBULIN RATIO 0.8 (1.0-2.7); ALKALINE PHOSPHATASE 110 U/L (46-116); ANION GAP 13 mmol/L (5-15); ASPARTATE AMINO TRANSFERASE 67 U/L (15-37); BILIRUBIN,TOTAL 0.6 MG/DL (0.2-1.0); BLOOD UREA NITROGEN 9 mg/dL (7-18); CALCIUM 8.4 MG/DL (8.5-10.1); CARBON DIOXIDE 18 MMOL/L (21-32); CHLORIDE 102 MMOL/L (98-107); POTASSIUM 4.3 MMOL/L (3.5-5.1); SODIUM 133 MMOL/L (136-145)
[2019-12-19 07:03] LABS: ALANINE AMINOTRANSFERASE 37 U/L (12-78); ALBUMIN 2.8 G/DL (3.4-5.0); ALKALINE PHOSPHATASE 115 U/L (46-116); ASPARTATE AMINO TRANSFERASE 68 U/L (15-37); BILIRUBIN,DIRECT 0.3 MG/DL (0.0-0.3); BILIRUBIN,TOTAL 0.7 MG/DL (0.2-1.0); PHOSPHORUS 3.4 MG/DL (2.5-4.9)
[2019-12-19 08:00] VITALS: BP 142/79
[2019-12-19 08:17] LABS: BASOPHILS % (AUTO) 1.7 % (0.0-2.0); EOSINOPHILS % (AUTO) 1.2 % (0.0-3.0); HEMATOCRIT 27.8 % (37.0-47.0); LYMPHOCYTES % (AUTO) 27.5 % (20.0-45.0); MEAN CORPUSCULAR VOLUME 88 FL (80-99); NEUTROPHILS % (AUTO) 57.6 % (45.0-75.0); PLATELET COUNT 165 K/UL (150-450); RED BLOOD COUNT 3.18 M/UL (4.20-5.40); RED CELL DISTRIBUTION WIDTH 13.9 % (11.6-14.8); WHITE BLOOD COUNT 5.5 K/UL (4.8-10.8)
[2019-12-19] MEDS: Docusate 100mg cap ORAL SCH ×2 (09:00→21:00)
--- NOTE | 2019-12-19 10:28 | General Progress Note ---
Assessment/Plan Assessment/Plan: N/V diarrhea elevated LFTS hypoalbuminemeia DM HTN fu CT stool studies anemia work up CEA possible colonoscopy on Saturday Subjective ROS Limited/Unobtainable: Yes Allergies: Coded Allergies: No Known Allergies (Unverified , 05/07/19) Objective Last 24 Hour Vital Signs Date Time Temp Pulse Resp B/P (MAP) Pulse Ox O2 Delivery O2 Flow Rate FiO2 12/19/19 08:00 99.1 84 18 142/79 (100) 98 12/19/19 04:00 99.4 92 18 148/83 (104) 97 12/19/19 00:00 98.9 96 18 143/87 (105) 97 12/18/19 21:00 Room Air 12/18/19 20:00 98.5 95 17 131/83 (99) 99 12/18/19 19:03 Room Air 12/18/19 18:30 97.8 104 18 163/100 (121) 98 12/18/19 18:28 98.0 77 19 131/81 98 Room Air 12/18/19 17:03 98.2 76 17 122/79 96 Room Air 12/18/19 15:03 98.0 87 18 132/77 99 Room Air 12/18/19 13:03 97.9 17 180/82 97 Room Air 12/18/19 12:39 97.9 88 17 180/82 (114) 97 Room Air Intake and Output 12/18/19 12/19/19 19:00 07:00 Intake Total 1000 ml 600 ml Balance 1000 ml 600 ml Intake Oral 0 ml IV Total 1000 ml 600 ml # Bowel Movements 3 Laboratory Tests 12/18/19 13:00: White Blood Count 6.0, Red Blood Count 3.66L, Hemoglobin 10.7L, Hematocrit 33.7L , Mean Corpuscular Volume 92, Mean Corpuscular Hemoglobin 29.4, Mean Corpuscular Hemoglobin Concent 31.9L, Red Cell Distribution Width 15.7H, Platelet Count 191, Mean Platelet Volume 8.1, Neutrophils (%) (Auto) 66.3, Lymphocytes (%) (Auto) 23.6, Monocytes (%) (Auto) 7.1, Eosinophils (%) (Auto) 1.2, Basophils (%) (Auto) 1.8, Sodium Level 129L, Potassium Level 4.7, Chloride Level 97L, Carbon Dioxide Level 18L, Anion Gap 14, Blood Urea Nitrogen 8, Creatinine 1.0, Estimat Glomerular Filtration Rate > 60, Glucose Level 105, Osmolality 299, Calcium Level 8.6, Total Bilirubin 0.3, Aspartate Amino Transf ( AST/SGOT) 80H, Alanine Aminotransferase (ALT/SGPT) 42, Alkaline Phosphatase 130H , Troponin I 0.000, Total Protein 6.6, Albumin 3.1L, Globulin 3.5, Albumin/ Globulin Ratio 0.9L 12/18/19 15:30: Urine Color Pale yellow, Urine Appearance Clear, Urine pH 5, Urine Specific Lena 1.005, Urine Protein Negative, Urine Glucose (UA) Negative, Urine Ketones Negative, Urine Blood Negative, Urine Nitrite Negative, Urine Bilirubin Negative, Urine Urobilinogen Normal, Urine Leukocyte Esterase Negative, Urine Osmolality 162L, Urine Random Sodium 26, Urine Creatinine 29.8L 12/19/19 05:50: White Blood Count 5.5, Red Blood Count 3.18L, Hemoglobin 10.0L, Hematocrit 27.8L , Mean Corpuscular Volume 88, Mean Corpuscular Hemoglobin 31.5H, Mean Corpuscular Hemoglobin Concent 35.9, Red Cell Distribution Width 13.9, Platelet Count 165, Mean Platelet Volume 6.9, Neutrophils (%) (Auto) 57.6, Lymphocytes (% ) (Auto) 27.5, Monocytes (%) (Auto) 12.0H, Eosinophils (%) (Auto) 1.2, Basophils (%) (Auto) 1.7, Sodium Level 133L, Potassium Level 4.3, Chloride Level 102, Carbon Dioxide Level 18L, Anion Gap 13, Blood Urea Nitrogen 9, Creatinine 1.0, Estimat Glomerular Filtration Rate > 60, Glucose Level 81, Calcium Level 8.4L, Total Bilirubin 0.7, Aspartate Amino Transf (AST/SGOT) 68H, Alanine Aminotransferase (ALT/SGPT) 37, Alkaline Phosphatase 115, Total Protein 5.9L, Albumin 2.8L, Globulin 3.3, Albumin/Globulin Ratio 0.8L, Hemoglobin A1c 5.0, Lactic Acid Level 0.60, Phosphorus Level 3.4, Magnesium Level 1.7L, Direct Bilirubin 0.3 Height (Feet): 5 Height (Inches): 3.00 Weight (Pounds): 160 General Appearance: alert EENT: normal ENT inspection Neck: supple Cardiovascular: normal rate Respiratory/Chest: decreased breath sounds Abdomen: normal bowel sounds, non tender, soft Extremities: non-tender Nickolas Garner MD Dec 19, 2019 10:28
[2019-12-19 12:00] VITALS: BP 152/88
--- NOTE | 2019-12-19 15:55 | General Progress Note ---
Assessment/Plan Assessment/Plan: 68F with DM, HTN and ETOH dependance presenting with 2 week onset of nausea, vomiting and diarrhea. Medical work up consistent with hyponatremia with serum Na: 129 and physical examination significant for hypovolumic state. Patient being admitted for further observation and medical management #Intractable nausea #Diarrhea -Likely viral vs. gastroenteritis in etiology -Continue with IVF hydration. -PRN antiemetics. -PO diet as tolerated. -Monitor electrolytes. -Stool C. difficile negative -Follow up other stool infectious workup -GI consult appreciated -CT A/P results pending #Hypovolumic Hyponatremia, improving with IV hydration #Hypomagnesemia, POA -s/p 1L of IV N.S in the ED. -Continue IV N.S @75cc/hr. -Replace Mg and monitor levels -Nephrology consult appreciated #Essential hypertension -Patient reportedly on benazepril as outpatient -Cont to monitor pressures, will start lisinopril if pressures climbing #Transaminitis #ETOH dependance -AST 80, ALT: 42 consistent with alcoholic liver disease -Last drink > 1 week ago. -Monitor for evidence of withdrawal, less likely given last drink was > 1 week ago #Non-insulin dependant type II DM: -Insulin SS -Diabetic diet. #Normocytic Anemia -Serum hgb: 10.7 -No signs of acute bleed. -Continue to monitor. I spent 35 minutes on this patient's case, and 25% was dedicated to counseling and/or care coordination which included discussions with RN, case management, consulting MDs and PCP. Spoke with Dr. Coughlin I spent an additional 35 minutes on review of medical records including hospital records, consult notes, progress notes, procedures, imaging, labs, hemodynamics, and other clinical documentation. Subjective Date patient seen: Dec 19, 2019 Time patient seen: 15:45 Constitutional: Denies: chills, fever Cardiovascular: Denies: chest pain Respiratory: Denies: cough Gastrointestinal/Abdominal: Reports: diarrhea, nausea; Denies: abdomen distended, abdominal pain, black stools, vomiting Genitourinary: Reports: burning Allergies: Coded Allergies: No Known Allergies (Unverified , 05/07/19) Subjective Follow up for diarrhea and transaminitis, persistent symptoms. Denies any fever and chills C. difficile negative Objective Last 24 Hour Vital Signs Date Time Temp Pulse Resp B/P (MAP) Pulse Ox O2 Delivery O2 Flow Rate FiO2 12/19/19 12:00 98.8 77 18 152/88 (109) 100 12/19/19 09:00 Room Air 12/19/19 08:00 99.1 84 18 142/79 (100) 98 12/19/19 04:00 99.4 92 18 148/83 (104) 97 12/19/19 00:00 98.9 96 18 143/87 (105) 97 12/18/19 21:00 Room Air 12/18/19 20:00 98.5 95 17 131/83 (99) 99 12/18/19 19:03 Room Air 12/18/19 18:30 97.8 104 18 163/100 (121) 98 12/18/19 18:28 98.0 77 19 131/81 98 Room Air 12/18/19 17:03 98.2 76 17 122/79 96 Room Air Intake and Output 12/18/19 12/19/19 19:00 07:00 Intake Total 1000 ml 600 ml Balance 1000 ml 600 ml Intake Oral 0 ml IV Total 1000 ml 600 ml # Bowel Movements 3 Laboratory Tests 12/19/19 05:50: White Blood Count 5.5, Red Blood Count 3.18L, Hemoglobin 10.0L, Hematocrit 27.8L , Mean Corpuscular Volume 88, Mean Corpuscular Hemoglobin 31.5H, Mean Corpuscular Hemoglobin Concent 35.9, Red Cell Distribution Width 13.9, Platelet Count 165, Mean Platelet Volume 6.9, Neutrophils (%) (Auto) 57.6, Lymphocytes (% ) (Auto) 27.5, Monocytes (%) (Auto) 12.0H, Eosinophils (%) (Auto) 1.2, Basophils (%) (Auto) 1.7, Sodium Level 133L, Potassium Level 4.3, Chloride Level 102, Carbon Dioxide Level 18L, Anion Gap 13, Blood Urea Nitrogen 9, Creatinine 1.0, Estimat Glomerular Filtration Rate > 60, Glucose Level 81, Hemoglobin A1c 5.0, Lactic Acid Level 0.60, Calcium Level 8.4L, Phosphorus Level 3.4, Magnesium Level 1.7L, Total Bilirubin 0.7, Direct Bilirubin 0.3, Aspartate Amino Transf (AST/SGOT) 68H, Alanine Aminotransferase (ALT/SGPT) 37, Alkaline Phosphatase 115, Total Protein 5.9L, Albumin 2.8L, Globulin 3.3, Albumin/Globulin Ratio 0.8L Height (Feet): 5 Height (Inches): 3.00 Weight (Pounds): 160 General Appearance: no apparent distress, alert Neck: normal alignment, supple Cardiovascular: normal rate, regular rhythm Respiratory/Chest: lungs clear, normal breath sounds Abdomen: non tender, soft iJan Morrison MD Dec 19, 2019 15:55
[2019-12-19 16:00] VITALS: BP 157/92
[2019-12-19 20:10] VITALS: BP 152/94
--- NOTE | 2019-12-19 20:33 | Nephrology Progress Note ---
Assessment/Plan Plan #Hyponatremia- hypovolumic in the setting of nausea, emesis and diarrhea- improving #Hypomag due to decreased PO intake and diarrhea #nausea, emesis, diarrhea #Alcohol dependence #HTN #Anemia - continue with NS at 75cc/hr - replete mag - GI eval - antemetics - monitor for withdrawal - monitor lyte - avoid nephrotoxins - check iron panel - GI eval Subjective ROS Limited/Unobtainable: No Constitutional: Denies: no symptoms, chills, diaphoresis, fever, malaise, weakness, other HEENT: Denies: no symptoms, eye pain, blurred vision, tearing, double vision, ear pain, ear discharge, nose pain, nose congestion, throat pain, throat swelling, mouth pain, mouth swelling, other Genitourinary: Denies: no symptoms, burning, discharge, frequency, flank pain, hematuria, incontinence, pain, urgency, other Subjective Abd pain better continues to have diarrhea no chest pain no SOB Objective Objective Last 24 Hour Vital Signs Date Time Temp Pulse Resp B/P (MAP) Pulse Ox O2 Delivery O2 Flow Rate FiO2 12/19/19 20:10 98.2 98 17 152/94 (113) 100 12/19/19 16:00 98.6 97 18 157/92 (113) 100 12/19/19 12:00 98.8 77 18 152/88 (109) 100 12/19/19 09:00 Room Air 12/19/19 08:00 99.1 84 18 142/79 (100) 98 12/19/19 04:00 99.4 92 18 148/83 (104) 97 12/19/19 00:00 98.9 96 18 143/87 (105) 97 12/18/19 21:00 Room Air Intake and Output 12/18/19 12/19/19 19:00 07:00 Intake Total 1000 ml 600 ml Balance 1000 ml 600 ml Intake Oral 0 ml IV Total 1000 ml 600 ml # Bowel Movements 3 Laboratory Tests 12/19/19 05:50: White Blood Count 5.5, Red Blood Count 3.18L, Hemoglobin 10.0L, Hematocrit 27.8L , Mean Corpuscular Volume 88, Mean Corpuscular Hemoglobin 31.5H, Mean Corpuscular Hemoglobin Concent 35.9, Red Cell Distribution Width 13.9, Platelet Count 165, Mean Platelet Volume 6.9, Neutrophils (%) (Auto) 57.6, Lymphocytes (% ) (Auto) 27.5, Monocytes (%) (Auto) 12.0H, Eosinophils (%) (Auto) 1.2, Basophils (%) (Auto) 1.7, Sodium Level 133L, Potassium Level 4.3, Chloride Level 102, Carbon Dioxide Level 18L, Anion Gap 13, Blood Urea Nitrogen 9, Creatinine 1.0, Estimat Glomerular Filtration Rate > 60, Glucose Level 81, Hemoglobin A1c 5.0, Lactic Acid Level 0.60, Calcium Level 8.4L, Phosphorus Level 3.4, Magnesium Level 1.7L, Total Bilirubin 0.7, Direct Bilirubin 0.3, Aspartate Amino Transf (AST/SGOT) 68H, Alanine Aminotransferase (ALT/SGPT) 37, Alkaline Phosphatase 115, Total Protein 5.9L, Albumin 2.8L, Globulin 3.3, Albumin/Globulin Ratio 0.8L 12/19/19 15:30: Urine Opiates Screen Negative, Urine Barbiturates Screen Negative, Phencyclidine (PCP) Screen Negative, Urine Amphetamines Screen Negative, Urine Benzodiazepines Screen Negative, Urine Cocaine Screen Negative, Urine Marijuana (THC) Screen Negative 12/19/19 16:30: Stool Occult Blood [Pending] Height (Feet): 5 Height (Inches): 3.00 Weight (Pounds): 160 Virginia Pitt M.D. Dec 19, 2019 20:33
[2019-12-19] MEDS: Enoxaparin 40mg Inj SUBQ SCH (21:14)
[2019-12-19] MEDS: TraZODone 50mg tab ORAL PRN (21:14)
--- NOTE | 2019-12-19 21:24 | Consultation ---
History of Present Illness General Date patient seen: Dec 18, 2019 Chief Complaint: Nausea, Vomiting, and Diarrhea Reason for Consultation: ams Present Illness HPI 68 YO F with non-insulin dependant type II DM, and essential hypertension presenting with vomiting and diarrhea x 2 weeks. She reports of 5-6 episodes of non-bloody watery diarrhea per day in addition to non-bloody emesis. She has also felt very lethargic and weak. She reports of poor oral intake because of the severe nausea and vomiting. She has held her home Benazepril because of "low blood pressure". Patient reports of similar signs and symptoms about a year ago for which she was hospitalized and was treated for "dehydration". Allergies: Coded Allergies: No Known Allergies (Unverified , 05/07/19) Medication History Scheduled Aspirin* (Aspirin*), 81 MG ORAL DAILY, (Reported) Benazepril Hcl* (Lotensin*), Unknown Dose ORAL DAILY, (Reported) Scheduled PRN Zolpidem Tartrate* (Ambien*), Unknown Dose ORAL BEDTIME PRN for Insomnia, ( Reported) Patient History Healthcare decision maker Resuscitation status Full Code Advanced Directive on File Physical Exam General Appearance: confused Lines, tubes and drains: peripheral HEENT: normocephalic, atraumatic Neck: non-tender Respiratory/Chest: chest wall non-tender Physical Exam Narrative confused, tangential, oriented x 2 non focal weak overall cc 35 min Last 24 Hour Vital Signs Date Time Temp Pulse Resp B/P (MAP) Pulse Ox O2 Delivery O2 Flow Rate FiO2 12/19/19 20:10 98.2 98 17 152/94 (113) 100 12/19/19 16:00 98.6 97 18 157/92 (113) 100 12/19/19 12:00 98.8 77 18 152/88 (109) 100 12/19/19 09:00 Room Air 12/19/19 08:00 99.1 84 18 142/79 (100) 98 12/19/19 04:00 99.4 92 18 148/83 (104) 97 12/19/19 00:00 98.9 96 18 143/87 (105) 97 Intake and Output 12/18/19 12/19/19 19:00 07:00 Intake Total 1000 ml 600 ml Balance 1000 ml 600 ml Intake Oral 0 ml IV Total 1000 ml 600 ml # Bowel Movements 3 Laboratory Tests Test 12/19/19 05:50 12/19/19 15:30 12/19/19 16:30 White Blood Count 5.5 K/UL (4.8-10.8) Red Blood Count 3.18 M/UL (4.20-5.40) L Hemoglobin 10.0 G/DL (12.0-16.0) L Hematocrit 27.8 % (37.0-47.0) L Mean Corpuscular Volume 88 FL (80-99) Mean Corpuscular Hemoglobin 31.5 PG (27.0-31.0) H Mean Corpuscular Hemoglobin Concent 35.9 G/DL (32.0-36.0) Red Cell Distribution Width 13.9 % (11.6-14.8) Platelet Count 165 K/UL (150-450) Mean Platelet Volume 6.9 FL (6.5-10.1) Neutrophils (%) (Auto) 57.6 % (45.0-75.0) Lymphocytes (%) (Auto) 27.5 % (20.0-45.0) Monocytes (%) (Auto) 12.0 % (1.0-10.0) H Eosinophils (%) (Auto) 1.2 % (0.0-3.0) Basophils (%) (Auto) 1.7 % (0.0-2.0) Sodium Level 133 MMOL/L (136-145) L Potassium Level 4.3 MMOL/L (3.5-5.1) Chloride Level 102 MMOL/L (98-107) Carbon Dioxide Level 18 MMOL/L (21-32) L Anion Gap 13 mmol/L (5-15) Blood Urea Nitrogen 9 mg/dL (7-18) Creatinine 1.0 MG/DL (0.55-1.30) Estimat Glomerular Filtration Rate > 60 mL/min (>60) Glucose Level 81 MG/DL (74-106) Hemoglobin A1c 5.0 % (4.3-6.0) Lactic Acid Level 0.60 mmol/L (0.4-2.0) Calcium Level 8.4 MG/DL (8.5-10.1) L Phosphorus Level 3.4 MG/DL (2.5-4.9) Magnesium Level 1.7 MG/DL (1.8-2.4) L Total Bilirubin 0.7 MG/DL (0.2-1.0) Direct Bilirubin 0.3 MG/DL (0.0-0.3) Aspartate Amino Transf (AST/SGOT) 68 U/L (15-37) H Alanine Aminotransferase (ALT/SGPT) 37 U/L (12-78) Alkaline Phosphatase 115 U/L (46-116) Total Protein 5.9 G/DL (6.4-8.2) L Albumin 2.8 G/DL (3.4-5.0) L Globulin 3.3 g/dL Albumin/Globulin Ratio 0.8 (1.0-2.7) L Urine Opiates Screen Negative (NEGATIVE) Urine Barbiturates Screen Negative (NEGATIVE) Phencyclidine (PCP) Screen Negative (NEGATIVE) Urine Amphetamines Screen Negative (NEGATIVE) Urine Benzodiazepines Screen Negative (NEGATIVE) Urine Cocaine Screen Negative (NEGATIVE) Urine Marijuana (THC) Screen Negative (NEGATIVE) Stool Occult Blood Pending Microbiology Date/Time Source Procedure Growth Status 12/18/19 22:40 Stool Clostridium difficile Toxin Assay - Final Complete Height (Feet): 5 Height (Inches): 3.00 Weight (Pounds): 160 Medications Current Medications Medications (Trade) Dose Ordered Sig/Lucas Route PRN Reason Start Time Stop Time Status Last Admin Dose Admin Acetaminophen (Tylenol) 650 mg Q4H PRN ORAL Mild Pain/Temp >100.5 12/18/19 17:45 01/17/20 17:44 Artificial Tears (Akwa-Tears) 2 drop TID BOTH EYES 12/19/19 13:00 01/18/20 12:59 12/19/19 17:28 Barium Sulfate (Readi-Cat 2) 450 ml NOW PRN ORAL Radiology Procedure 12/19/19 02:00 12/21/19 01:46 Bisacodyl (Dulcolax) 10 mg HSPRN PRN RECTAL Constipation 12/18/19 21:00 03/17/20 20:59 Dextrose (Dextrose 50%) 25 ml Q30M PRN IV Hypoglycemia 12/18/19 22:15 03/17/20 22:14 Dextrose (Dextrose 50%) 50 ml Q30M PRN IV Hypoglycemia 12/18/19 22:15 03/17/20 22:14 Docusate Sodium (Colace) 100 mg EVERY 12 HOURS ORAL 12/18/19 21:00 01/17/20 20:59 Enoxaparin Sodium (Lovenox) 40 mg Q24H SUBQ 12/18/19 21:00 03/17/20 20:59 12/19/19 21:14 Hydralazine HCl (Apresoline) 10 mg Q6HR PRN ORAL htn 12/18/19 17:45 03/17/20 17:44 Insulin Aspart (NovoLOG) BEFORE MEALS AND HS SUBQ 12/19/19 06:30 03/18/20 06:29 Iohexol (OMNIPAQUE-300 100ml) 100 ml NOW PRN INJ Radiology Procedure 12/19/19 02:00 12/21/19 01:46 Magnesium Hydroxide (Mom) 30 ml HSPRN PRN ORAL Constipation 12/18/19 21:00 01/17/20 20:59 Ondansetron HCl (Zofran) 4 mg Q6H PRN IVP Nausea & Vomiting 12/18/19 17:45 01/17/20 17:44 12/19/19 19:53 Polyethylene Glycol (Miralax) 17 gm HSPRN PRN ORAL Constipation 12/18/19 21:00 01/17/20 20:59 Sodium Chloride 1,000 ml @ 75 mls/hr [id number] IV 12/18/19 22:15 12/19/19 22:15 12/19/19 11:59 Trazodone HCl (Desyrel) 50 mg BEDTIME PRN ORAL INSOMNIA 12/19/19 21:00 01/18/20 20:59 12/19/19 21:14 Assessment/Plan Problem List: (1) Weakness ICD Codes: R53.1 - Weakness; R19.7 - Diarrhea, unspecified SNOMED: 35130784 (2) Hypertension ICD Codes: I10 - Essential (primary) hypertension SNOMED: 37891885 (3) Type II diabetes mellitus ICD Codes: E11.9 - Type 2 diabetes mellitus without complications SNOMED: 60454201 (4) Alcoholism ICD Codes: F10.20 - Alcohol dependence, uncomplicated SNOMED: 8238212 (5) Nausea, vomiting, and diarrhea ICD Codes: R11.2 - Nausea with vomiting, unspecified; R19.7 - Diarrhea, unspecified SNOMED: 5206029 Status Narrative encephalopahty, acute rule out dehydration, vs [employer] rium precautions ivfs thiamine na goal 135-145 Adams Rae MD Dec 19, 2019 21:24
[2019-12-20 04:00] VITALS: BP 138/80
[2019-12-20] MEDS: NovoLOG Insulin Flexpen SUBQ SCH ×4 (06:00→20:46)
[2019-12-20 07:54] LABS: BASOPHILS % (AUTO) 1.4 % (0.0-2.0); EOSINOPHILS % (AUTO) 1.6 % (0.0-3.0); HEMATOCRIT 30.5 % (37.0-47.0); HEMOGLOBIN 10.2 G/DL (12.0-16.0); MEAN CORPUSCULAR VOLUME 89 FL (80-99); MONOCYTES % (AUTO) 12.7 % (1.0-10.0); NEUTROPHILS % (AUTO) 60.5 % (45.0-75.0); PLATELET COUNT 157 K/UL (150-450); RED BLOOD COUNT 3.44 M/UL (4.20-5.40); RED CELL DISTRIBUTION WIDTH 14.1 % (11.6-14.8); WHITE BLOOD COUNT 5.6 K/UL (4.8-10.8)
[2019-12-20 08:00] VITALS: BP 125/72
[2019-12-20 08:33] LABS: ALANINE AMINOTRANSFERASE 42 U/L (12-78); ALBUMIN 2.9 G/DL (3.4-5.0); ALBUMIN/GLOBULIN RATIO 0.8 (1.0-2.7); ALKALINE PHOSPHATASE 100 U/L (46-116); ANION GAP 14 mmol/L (5-15); ASPARTATE AMINO TRANSFERASE 52 U/L (15-37); BILIRUBIN,TOTAL 0.6 MG/DL (0.2-1.0); BLOOD UREA NITROGEN 6 mg/dL (7-18); CALCIUM 8.2 MG/DL (8.5-10.1); CARBON DIOXIDE 18 MMOL/L (21-32); CHLORIDE 104 MMOL/L (98-107); CREATININE 0.9 MG/DL (0.55-1.30); POTASSIUM 4.4 MMOL/L (3.5-5.1); SODIUM 136 MMOL/L (136-145)
[2019-12-20] MEDS: Docusate 100mg cap ORAL SCH ×2 (08:42→20:37)
[2019-12-20 08:44] LABS: AMYLASE 54 U/L (25-115)
[2019-12-20 08:45] LABS: % IRON SATURATION 27 % (15-50); IRON 81 ug/dL (50-175); PHOSPHORUS 2.8 MG/DL (2.5-4.9); TOTAL IRON BINDING CAPACITY 297 ug/dL (250-450)
--- NOTE | 2019-12-20 09:37 | Nephrology Progress Note ---
Assessment/Plan Plan #Hyponatremia- hypovolumic in the setting of nausea, emesis and diarrhea- improving #Hypomag due to decreased PO intake and diarrhea #nausea, emesis, diarrhea #Alcohol dependence #HTN #Anemia - continue with NS at 75cc/hr - replete mag - GI eval - antemetics - monitor for withdrawal - monitor lyte - avoid nephrotoxins - check iron panel - GI eval Subjective ROS Limited/Unobtainable: No Constitutional: Reports: weakness HEENT: Denies: no symptoms, eye pain, blurred vision, tearing, double vision, ear pain, ear discharge, nose pain, nose congestion, throat pain, throat swelling, mouth pain, mouth swelling, other Genitourinary: Denies: no symptoms, burning, discharge, frequency, flank pain, hematuria, incontinence, pain, urgency, other Neurologic/Psychiatric: Denies: no symptoms, anxiety, depressed, emotional problems, headache, numbness, paresthesia, pre-existing deficit, seizure, tingling, tremors, weakness, other Subjective Abd pain better continues to have diarrhea no chest pain no SOB Objective Objective Last 24 Hour Vital Signs Date Time Temp Pulse Resp B/P (MAP) Pulse Ox O2 Delivery O2 Flow Rate FiO2 12/20/19 08:00 98.4 102 18 125/72 (89) 97 12/20/19 04:00 98.1 98 18 138/80 (99) 98 12/19/19 21:00 Room Air 12/19/19 20:10 98.2 98 17 152/94 (113) 100 12/19/19 16:00 98.6 97 18 157/92 (113) 100 12/19/19 12:00 98.8 77 18 152/88 (109) 100 Intake and Output 12/19/19 12/20/19 19:00 07:00 Intake Total 400 ml 200 ml Output Total 500 ml 100 ml Balance -100 ml 100 ml Intake Oral 400 ml 200 ml Output Stool Total 500 ml 100 ml # Voids 5 5 # Bowel Movements 5 2 Laboratory Tests 12/19/19 15:30: Urine Opiates Screen Negative, Urine Barbiturates Screen Negative, Phencyclidine (PCP) Screen Negative, Urine Amphetamines Screen Negative, Urine Benzodiazepines Screen Negative, Urine Cocaine Screen Negative, Urine Marijuana (THC) Screen Negative 12/19/19 16:30: Stool Occult Blood [Pending] 12/20/19 07:05: White Blood Count 5.6, Red Blood Count 3.44L, Hemoglobin 10.2L, Hematocrit 30.5L , Mean Corpuscular Volume 89, Mean Corpuscular Hemoglobin 29.7, Mean Corpuscular Hemoglobin Concent 33.6, Red Cell Distribution Width 14.1, Platelet Count 157, Mean Platelet Volume 7.0, Neutrophils (%) (Auto) 60.5, Lymphocytes (% ) (Auto) 24.0, Monocytes (%) (Auto) 12.7H, Eosinophils (%) (Auto) 1.6, Basophils (%) (Auto) 1.4, Prothrombin Time 10.3, Prothromb Time International Ratio 1.0, Sodium Level 136, Potassium Level 4.4, Chloride Level 104, Carbon Dioxide Level 18L, Anion Gap 14, Blood Urea Nitrogen 6L, Creatinine 0.9, Estimat Glomerular Filtration Rate > 60, Glucose Level 90, Hemoglobin A1c [ Pending], Calcium Level 8.2L, Phosphorus Level 2.8, Magnesium Level 2.1, Iron Level 81, Total Iron Binding Capacity 297, Percent Iron Saturation 27, Unsaturated Iron Binding 216, Total Bilirubin 0.6, Aspartate Amino Transf (AST/ SGOT) 52H, Alanine Aminotransferase (ALT/SGPT) 42, Alkaline Phosphatase 100, Total Protein 6.4, Albumin 2.9L, Globulin 3.5, Albumin/Globulin Ratio 0.8L, Amylase Level 54, Carcinoembryonic Antigen [Pending], Vitamin B12 Level 866, Folate 13.9 Height (Feet): 5 Height (Inches): 3.00 Weight (Pounds): 160 Virginia Pitt M.D. Dec 20, 2019 09:36
--- NOTE | 2019-12-20 11:52 | General Progress Note ---
Assessment/Plan Assessment/Plan: N/V diarrhea elevated LFTS hypoalbuminemeia DM HTN fu CT stool studies anemia work up CEA plan EGD and colonoscopy on Saturday Subjective ROS Limited/Unobtainable: No Allergies: Coded Allergies: No Known Allergies (Unverified , 05/07/19) Objective Last 24 Hour Vital Signs Date Time Temp Pulse Resp B/P (MAP) Pulse Ox O2 Delivery O2 Flow Rate FiO2 12/20/19 08:00 98.4 102 18 125/72 (89) 97 12/20/19 04:00 98.1 98 18 138/80 (99) 98 12/19/19 21:00 Room Air 12/19/19 20:10 98.2 98 17 152/94 (113) 100 12/19/19 16:00 98.6 97 18 157/92 (113) 100 12/19/19 12:00 98.8 77 18 152/88 (109) 100 Intake and Output 12/19/19 12/20/19 19:00 07:00 Intake Total 400 ml 200 ml Output Total 500 ml 100 ml Balance -100 ml 100 ml Intake Oral 400 ml 200 ml Output Stool Total 500 ml 100 ml # Voids 5 5 # Bowel Movements 5 2 Laboratory Tests 12/19/19 15:30: Urine Opiates Screen Negative, Urine Barbiturates Screen Negative, Phencyclidine (PCP) Screen Negative, Urine Amphetamines Screen Negative, Urine Benzodiazepines Screen Negative, Urine Cocaine Screen Negative, Urine Marijuana (THC) Screen Negative 12/19/19 16:30: Stool Occult Blood [Pending] 12/20/19 07:05: White Blood Count 5.6, Red Blood Count 3.44L, Hemoglobin 10.2L, Hematocrit 30.5L , Mean Corpuscular Volume 89, Mean Corpuscular Hemoglobin 29.7, Mean Corpuscular Hemoglobin Concent 33.6, Red Cell Distribution Width 14.1, Platelet Count 157, Mean Platelet Volume 7.0, Neutrophils (%) (Auto) 60.5, Lymphocytes (% ) (Auto) 24.0, Monocytes (%) (Auto) 12.7H, Eosinophils (%) (Auto) 1.6, Basophils (%) (Auto) 1.4, Prothrombin Time 10.3, Prothromb Time International Ratio 1.0, Sodium Level 136, Potassium Level 4.4, Chloride Level 104, Carbon Dioxide Level 18L, Anion Gap 14, Blood Urea Nitrogen 6L, Creatinine 0.9, Estimat Glomerular Filtration Rate > 60, Glucose Level 90, Hemoglobin A1c [ Pending], Calcium Level 8.2L, Phosphorus Level 2.8, Magnesium Level 2.1, Iron Level 81, Total Iron Binding Capacity 297, Percent Iron Saturation 27, Unsaturated Iron Binding 216, Total Bilirubin 0.6, Aspartate Amino Transf (AST/ SGOT) 52H, Alanine Aminotransferase (ALT/SGPT) 42, Alkaline Phosphatase 100, Total Protein 6.4, Albumin 2.9L, Globulin 3.5, Albumin/Globulin Ratio 0.8L, Amylase Level 54, Carcinoembryonic Antigen [Pending], Vitamin B12 Level 866, Folate 13.9 Height (Feet): 5 Height (Inches): 3.00 Weight (Pounds): 160 General Appearance: no apparent distress EENT: normal ENT inspection Neck: supple Cardiovascular: normal rate Respiratory/Chest: decreased breath sounds Abdomen: normal bowel sounds, non tender, soft Extremities: non-tender Nickolas Garner MD Dec 20, 2019 11:52
[2019-12-20 12:00] VITALS: BP 126/106
--- NOTE | 2019-12-20 12:00 | General Progress Note ---
Assessment/Plan Assessment/Plan: 68F with DM, HTN and ETOH dependance presenting with 2 week onset of nausea, vomiting and diarrhea. Medical work up consistent with hyponatremia with serum Na: 129 and physical examination significant for hypovolumic state. Patient being admitted for further observation and medical management #Intractable nausea #Diarrhea -Likely viral vs. gastroenteritis in etiology -Continue with IVF hydration. -PRN antiemetics. -PO diet as tolerated. -Monitor electrolytes. -Stool C. difficile negative -Follow up stool cultures -GI consult appreciated, EGD and colonoscopy planned for Saturday -CT A/P results pending #Hypovolumic Hyponatremia, resolved #Hypomagnesemia, POA -Continue IV hydration -Replace Mg and monitor levels -Nephrology following #Essential hypertension -Patient reportedly on benazepril as outpatient -Cont to monitor pressures, will start lisinopril if pressures climbing #Transaminitis #ETOH dependance -AST 80, ALT: 42 consistent with alcoholic liver disease -Last drink > 1 week ago. -Monitor for evidence of withdrawal, less likely given last drink was > 1 week ago #Non-insulin dependant type II DM: -Insulin SS -Diabetic diet. #Normocytic Anemia -Serum hgb: 10.7 -No signs of acute bleed. -Continue to monitor. I spent 35 minutes on this patient's case, and 25% was dedicated to counseling and/or care coordination which included discussions with RN, case management, consulting MDs and PCP. Spoke with Dr. Coughlin Subjective Date patient seen: Dec 20, 2019 Time patient seen: 11:58 ROS Limited/Unobtainable: No Constitutional: Denies: chills, fever Cardiovascular: Denies: chest pain Respiratory: Denies: cough Gastrointestinal/Abdominal: Reports: diarrhea; Denies: abdomen distended, abdominal pain, nausea Allergies: Coded Allergies: No Known Allergies (Unverified , 05/07/19) Subjective Follow up for diarrhea and transaminitis Persistent diarrhea but no abdominal pain Stool culture pending. C. diff negative Objective Last 24 Hour Vital Signs Date Time Temp Pulse Resp B/P (MAP) Pulse Ox O2 Delivery O2 Flow Rate FiO2 12/20/19 08:00 98.4 102 18 125/72 (89) 97 12/20/19 04:00 98.1 98 18 138/80 (99) 98 12/19/19 21:00 Room Air 12/19/19 20:10 98.2 98 17 152/94 (113) 100 12/19/19 16:00 98.6 97 18 157/92 (113) 100 12/19/19 12:00 98.8 77 18 152/88 (109) 100 Intake and Output 12/19/19 12/20/19 19:00 07:00 Intake Total 400 ml 200 ml Output Total 500 ml 100 ml Balance -100 ml 100 ml Intake Oral 400 ml 200 ml Output Stool Total 500 ml 100 ml # Voids 5 5 # Bowel Movements 5 2 Laboratory Tests 12/19/19 15:30: Urine Opiates Screen Negative, Urine Barbiturates Screen Negative, Phencyclidine (PCP) Screen Negative, Urine Amphetamines Screen Negative, Urine Benzodiazepines Screen Negative, Urine Cocaine Screen Negative, Urine Marijuana (THC) Screen Negative 12/19/19 16:30: Stool Occult Blood [Pending] 12/20/19 07:05: White Blood Count 5.6, Red Blood Count 3.44L, Hemoglobin 10.2L, Hematocrit 30.5L , Mean Corpuscular Volume 89, Mean Corpuscular Hemoglobin 29.7, Mean Corpuscular Hemoglobin Concent 33.6, Red Cell Distribution Width 14.1, Platelet Count 157, Mean Platelet Volume 7.0, Neutrophils (%) (Auto) 60.5, Lymphocytes (% ) (Auto) 24.0, Monocytes (%) (Auto) 12.7H, Eosinophils (%) (Auto) 1.6, Basophils (%) (Auto) 1.4, Prothrombin Time 10.3, Prothromb Time International Ratio 1.0, Sodium Level 136, Potassium Level 4.4, Chloride Level 104, Carbon Dioxide Level 18L, Anion Gap 14, Blood Urea Nitrogen 6L, Creatinine 0.9, Estimat Glomerular Filtration Rate > 60, Glucose Level 90, Hemoglobin A1c [ Pending], Calcium Level 8.2L, Phosphorus Level 2.8, Magnesium Level 2.1, Iron Level 81, Total Iron Binding Capacity 297, Percent Iron Saturation 27, Unsaturated Iron Binding 216, Total Bilirubin 0.6, Aspartate Amino Transf (AST/ SGOT) 52H, Alanine Aminotransferase (ALT/SGPT) 42, Alkaline Phosphatase 100, Total Protein 6.4, Albumin 2.9L, Globulin 3.5, Albumin/Globulin Ratio 0.8L, Amylase Level 54, Carcinoembryonic Antigen [Pending], Vitamin B12 Level 866, Folate 13.9 Height (Feet): 5 Height (Inches): 3.00 Weight (Pounds): 160 General Appearance: alert Neck: normal alignment, supple Cardiovascular: normal rate, regular rhythm Respiratory/Chest: lungs clear, normal breath sounds Abdomen: non tender, soft Jian Morrison MD Dec 20, 2019 12:00
[2019-12-20] MEDS ORDERED: Nulytely 4L ORAL SCH (14:00)
[2019-12-20] MEDS: Lacri-Lube Opth Oint 3.5gm BOTH EYES SCH ×2 (14:18→20:41)
[2019-12-20 16:00] VITALS: BP 130/65
[2019-12-20] MEDS: D5 1/2NS w/KCl 20mEq 1,000 ML IV SCH (16:22)
[2019-12-20 20:00] VITALS: BP 149/84
--- NOTE | 2019-12-20 20:22 | Neurology Progress Note ---
Interim History Interim History ROS Limited/Unobtainable: No Interim History alert, following Objective Physical Exam Last Vital Signs Date Time Temp Pulse Resp B/P (MAP) Pulse Ox O2 Delivery O2 Flow Rate FiO2 12/20/19 16:00 98.3 78 18 130/65 (86) 99 12/20/19 09:00 Room Air Laboratory Tests Test 12/20/19 07:05 White Blood Count 5.6 K/UL (4.8-10.8) Red Blood Count 3.44 M/UL (4.20-5.40) L Hemoglobin 10.2 G/DL (12.0-16.0) L Hematocrit 30.5 % (37.0-47.0) L Mean Corpuscular Volume 89 FL (80-99) Mean Corpuscular Hemoglobin 29.7 PG (27.0-31.0) Mean Corpuscular Hemoglobin Concent 33.6 G/DL (32.0-36.0) Red Cell Distribution Width 14.1 % (11.6-14.8) Platelet Count 157 K/UL (150-450) Mean Platelet Volume 7.0 FL (6.5-10.1) Neutrophils (%) (Auto) 60.5 % (45.0-75.0) Lymphocytes (%) (Auto) 24.0 % (20.0-45.0) Monocytes (%) (Auto) 12.7 % (1.0-10.0) H Eosinophils (%) (Auto) 1.6 % (0.0-3.0) Basophils (%) (Auto) 1.4 % (0.0-2.0) Prothrombin Time 10.3 SEC (9.30-11.50) Prothromb Time International Ratio 1.0 (0.9-1.1) Sodium Level 136 MMOL/L (136-145) Potassium Level 4.4 MMOL/L (3.5-5.1) Chloride Level 104 MMOL/L (98-107) Carbon Dioxide Level 18 MMOL/L (21-32) L Anion Gap 14 mmol/L (5-15) Blood Urea Nitrogen 6 mg/dL (7-18) L Creatinine 0.9 MG/DL (0.55-1.30) Estimat Glomerular Filtration Rate > 60 mL/min (>60) Glucose Level 90 MG/DL (74-106) Hemoglobin A1c 4.9 % (4.3-6.0) Calcium Level 8.2 MG/DL (8.5-10.1) L Phosphorus Level 2.8 MG/DL (2.5-4.9) Magnesium Level 2.1 MG/DL (1.8-2.4) Iron Level 81 ug/dL (50-175) Total Iron Binding Capacity 297 ug/dL (250-450) Percent Iron Saturation 27 % (15-50) Unsaturated Iron Binding 216 ug/dL (112-346) Total Bilirubin 0.6 MG/DL (0.2-1.0) Aspartate Amino Transf (AST/SGOT) 52 U/L (15-37) H Alanine Aminotransferase (ALT/SGPT) 42 U/L (12-78) Alkaline Phosphatase 100 U/L (46-116) Total Protein 6.4 G/DL (6.4-8.2) Albumin 2.9 G/DL (3.4-5.0) L Globulin 3.5 g/dL Albumin/Globulin Ratio 0.8 (1.0-2.7) L Amylase Level 54 U/L (25-115) Carcinoembryonic Antigen Pending Vitamin B12 Level 866 PG/ML (193-986) Folate 13.9 NG/ML (8.6-58.9) Impression/Recommendations Problems: (1) Weakness (2) Nausea, vomiting, and diarrhea (3) Hypertension (4) Type II diabetes mellitus (5) Alcoholism Status: stable Diagnostic Impression encephalopathy likely 2/2 to dehydration belén ivfs na goal 135-145 map > 65 atb per primary pt ot Adams Rae MD Dec 20, 2019 20:22
[2019-12-20] MEDS: TraZODone 50mg tab ORAL PRN (20:37)
[2019-12-20] MEDS: Enoxaparin 40mg Inj SUBQ SCH (20:46)
[2019-12-21] VITALS (9 sets, daily range): BP systolic 99–135; BP diastolic 69–79
[2019-12-21] MEDS: D5 1/2NS w/KCl 20mEq 1,000 ML IV SCH (05:20)
[2019-12-21] MEDS: NovoLOG Insulin Flexpen SUBQ SCH ×4 (05:52→20:09)
[2019-12-21 06:56] LABS: ANION GAP 12 mmol/L (5-15); BLOOD UREA NITROGEN 4 mg/dL (7-18); CALCIUM 8.5 MG/DL (8.5-10.1); CARBON DIOXIDE 20 MMOL/L (21-32); CHLORIDE 106 MMOL/L (98-107); CREATININE 0.9 MG/DL (0.55-1.30); SODIUM 138 MMOL/L (136-145)
[2019-12-21 07:14] LABS: BASOPHILS % (AUTO) 1.1 % (0.0-2.0); EOSINOPHILS % (AUTO) 1.8 % (0.0-3.0); HEMATOCRIT 32.1 % (37.0-47.0); HEMOGLOBIN 10.6 G/DL (12.0-16.0); LYMPHOCYTES % (AUTO) 36.2 % (20.0-45.0); MEAN CORPUSCULAR VOLUME 90 FL (80-99); MONOCYTES % (AUTO) 12.6 % (1.0-10.0); NEUTROPHILS % (AUTO) 48.4 % (45.0-75.0); PLATELET COUNT 159 K/UL (150-450); RED BLOOD COUNT 3.58 M/UL (4.20-5.40); RED CELL DISTRIBUTION WIDTH 13.6 % (11.6-14.8); WHITE BLOOD COUNT 5.9 K/UL (4.8-10.8)
[2019-12-21] MEDS: Lacri-Lube Opth Oint 3.5gm BOTH EYES SCH ×2 (08:18→17:16)
[2019-12-21] MEDS: Docusate 100mg cap ORAL SCH ×2 (08:21→20:07)
--- NOTE | 2019-12-21 08:37 | General Progress Note ---
Assessment/Plan Status: stable Assessment/Plan: 68F with DM, HTN and ETOH dependance presenting with 2 week onset of nausea, vomiting and diarrhea. Medical work up consistent with hyponatremia with serum Na: 129 and physical examination significant for hypovolumic state. Patient being admitted for further observation and medical management #Intractable nausea #Diarrhea #positive Occult blood -Likely viral vs. gastroenteritis in etiology -Continue with IVF hydration. -PRN antiemetics. -Monitor electrolytes. -Stool C. difficile negative -stool occult positive -CT A/P done, results pending -GI following, EGD and colonoscopy planned for today #Hypovolumic Hyponatremia, resolved #Hypomagnesemia, POA -Continue IV hydration -Electrolytes replaced, ctm -Nephrology following, recs appreciated #Essential hypertension -Patient reportedly on benazepril as outpatient -Cont to monitor pressures -if pressures cont. to climb will start lisinopril -hydralazine PRN #Transaminitis #ETOH dependance -AST 80, ALT: 42 consistent with alcoholic liver disease -Last drink > 1 week ago. -Monitor for evidence of withdrawal, less likely given last drink was > 1 week ago #Non-insulin dependant type II DM: -Insulin SS -Diabetic diet. #Normocytic Anemia -Serum hgb: 10.7 -No signs of acute bleed. -Continue to monitor. DVT PPx: heparin subq I spent 35 minutes on this patient's case, and 25% was dedicated to counseling, dw pt lab results, and care coordination which included discussions with RN, case management, consulting MDs and PCP. Spoke with Dr. Coughlin Additional 32 mins spent w/reviewing chart H&P, progress notes, labs, imaging. Subjective Allergies: Coded Allergies: No Known Allergies (Unverified , 05/07/19) Subjective f/u for N/V, diarrhea. Pt states she cont. to have loose stools, states >3x yesterday. No abd pain, F/C , cough at this time. For EGD/colonoscopy today. Objective Last 24 Hour Vital Signs Date Time Temp Pulse Resp B/P (MAP) Pulse Ox O2 Delivery O2 Flow Rate FiO2 12/21/19 08:22 Room Air 12/20/19 21:00 Room Air 12/20/19 20:00 97.9 84 18 149/84 (105) 99 12/20/19 16:00 98.3 78 18 130/65 (86) 99 12/20/19 12:00 98.2 78 18 126/106 (113) 99 12/20/19 09:00 Room Air Intake and Output 12/20/19 12/21/19 19:00 07:00 Intake Total 2500 ml 500 ml Output Total 200 ml Balance 2300 ml 500 ml Intake Oral 2500 ml 500 ml Output Stool Total 200 ml # Voids 6 6 # Bowel Movements 1 5 Laboratory Tests 12/21/19 05:40: White Blood Count 5.9, Red Blood Count 3.58L, Hemoglobin 10.6L, Hematocrit 32.1L , Mean Corpuscular Volume 90, Mean Corpuscular Hemoglobin 29.6, Mean Corpuscular Hemoglobin Concent 33.0, Red Cell Distribution Width 13.6, Platelet Count 159, Mean Platelet Volume 6.8, Neutrophils (%) (Auto) 48.4, Lymphocytes (% ) (Auto) 36.2, Monocytes (%) (Auto) 12.6H, Eosinophils (%) (Auto) 1.8, Basophils (%) (Auto) 1.1, Sodium Level 138, Potassium Level 4.0, Chloride Level 106, Carbon Dioxide Level 20L, Anion Gap 12, Blood Urea Nitrogen 4L, Creatinine 0.9, Estimat Glomerular Filtration Rate > 60, Glucose Level 90, Calcium Level 8.5 Height (Feet): 5 Height (Inches): 3.00 Weight (Pounds): 160 Objective General Appearance: alert, awake, in NAD Neck: normal alignment, supple Cardiovascular: normal rate, regular rhythm Respiratory/Chest: lungs clear, normal breath sounds Abdomen: non tender, soft, no guarding/rebound Ext: no edema Estefany Casanova M.D. Dec 21, 2019 08:37
--- NOTE | 2019-12-21 09:37 | Anethesia Preoperative Eval ---
Anesthesia Pre-op PMH/ROS General Date of Evaluation: Dec 21, 2019 Time of Evaluation: 09:34 Anesthesiologist: ancelmo ASA Score: ASA 3 Mallampati Score Class I : Soft palate, uvula, fauces, pillars visible Class II: Soft palate, uvula, fauces visible Class III: Soft palate, base of uvula visible Class IV: Only hard plate visible Mallampati Classification: Class II Surgeon: bibi Diagnosis: anemia, +occult blood in stool Surgical Procedure: egd/colonoscopy Anesthesia History: none Social History: current smoker Family History: no anesthesia problems Allergies: Coded Allergies: No Known Allergies (Unverified , 05/07/19) Medications: see eMAR Patient NPO?: Yes Past Medical History Cardiovascular: Reports: HTN Neurologic/Psychiatric: Reports: other - weakness, tinnitus Endocrine: Reports: DM Hematology/Immune: Reports: anemia Anesthesia Pre-op Phys. Exam Physician Exam Last Vital Signs Date Time Temp Pulse Resp B/P (MAP) Pulse Ox O2 Delivery O2 Flow Rate FiO2 12/21/19 08:22 Room Air 12/21/19 08:00 98.2 85 18 134/75 (94) 99 Constitutional: NAD Neurologic: CN 2-12 intact Cardiovascular: RRR Respiratory: CTA Gastrointestinal: S/NT/ND Airway Exam Mallampati Score: Class II MO: limited Neck: flexible TMD: 2fb ROM: limited Teeth: missing Anesthesia Pre-op A/P Labs Hematology Test 12/21/19 05:40 White Blood Count 5.9 K/UL (4.8-10.8) Red Blood Count 3.58 M/UL (4.20-5.40) L Hemoglobin 10.6 G/DL (12.0-16.0) L Hematocrit 32.1 % (37.0-47.0) L Mean Corpuscular Volume 90 FL (80-99) Mean Corpuscular Hemoglobin 29.6 PG (27.0-31.0) Mean Corpuscular Hemoglobin Concent 33.0 G/DL (32.0-36.0) Red Cell Distribution Width 13.6 % (11.6-14.8) Platelet Count 159 K/UL (150-450) Mean Platelet Volume 6.8 FL (6.5-10.1) Neutrophils (%) (Auto) 48.4 % (45.0-75.0) Lymphocytes (%) (Auto) 36.2 % (20.0-45.0) Monocytes (%) (Auto) 12.6 % (1.0-10.0) H Eosinophils (%) (Auto) 1.8 % (0.0-3.0) Basophils (%) (Auto) 1.1 % (0.0-2.0) Chemistry Test 12/21/19 05:40 Sodium Level 138 MMOL/L (136-145) Potassium Level 4.0 MMOL/L (3.5-5.1) Chloride Level 106 MMOL/L (98-107) Carbon Dioxide Level 20 MMOL/L (21-32) L Anion Gap 12 mmol/L (5-15) Blood Urea Nitrogen 4 mg/dL (7-18) L Creatinine 0.9 MG/DL (0.55-1.30) Estimat Glomerular Filtration Rate > 60 mL/min (>60) Glucose Level 90 MG/DL (74-106) Calcium Level 8.5 MG/DL (8.5-10.1) Risk Assessment & Plan Assessment: asa3 Plan: mac Status Change Before Surgery: No Pre-Antibiotics Drug: Letha Delacruz MD Dec 21, 2019 09:37
[2019-12-21] MEDS ORDERED: DiphenhydrAMINE 50mg/ml Inj IVP PRN (09:45)
[2019-12-21] MEDS ORDERED: fentaNYL 100 mcg/2 mL IV PRN (09:45)
[2019-12-21] MEDS ORDERED: Atropine Inj 1mg/10ml Syr IV PRN (09:45)
[2019-12-21] MEDS ORDERED: Midazolam 2mg/2ml Inj IVP PRN (09:45)
[2019-12-21] MEDS ORDERED: NS 500ML IVPB ONE (09:50)
--- NOTE | 2019-12-21 09:50 | Pre-Procedure Note/Attestation ---
Pre-Procedure Note/Attestation Complete Prior to Procedure Planned Procedure: not applicable Procedure Narrative: EGD and colonoscopy Indications for Procedure Pre-Operative Diagnosis: GIB Attestation I attest that I discussed the nature of the procedure; its benefits; risks and complications; and alternatives (and the risks and benefits of such alternatives ), prior to the procedure, with the patient (or the patient's legal inside account representative). I attest that, if there was a reasonable possibility of needing a blood transfusion, the patient (or the patient's legal inside account representative) was given the [facility] standardized written summary, pursuant to the Trevin Mahesh Blood Safety Act ([place] Health and Safety Code # 1645, as amended). I attest that I re-evaluated the patient just prior to the surgery and that there has been no change in the patient's H&P, except as documented below: Nickolas Garner MD Dec 21, 2019 09:50
[2019-12-21] MEDS ORDERED: Lidocaine 1% MPF 10mg/ml 5ml ONE (10:20)
[2019-12-21] MEDS ORDERED: fentaNYL 100 mcg/2 mL IV ONE (10:20)
[2019-12-21] MEDS ORDERED: Propofol 200mg/20ml IV ONE (10:20)
--- NOTE | 2019-12-21 10:31 | Immediate Post-Op Evaluation ---
Immediate Post-Op Evalulation Immediate Post-Op Evalulation Procedure: egd/colonoscopy w/bx Date of Evaluation: Dec 21, 2019 Time of Evaluation: 10:32 IV Fluids: 275ml 0.9ns Blood Products: none Estimated Blood Loss: negligible Blood Pressure Systolic: 100 Blood Pressure Diastolic: 73 Pulse Rate: 85 Respiratory Rate: 18 O2 Sat by Pulse Oximetry: 100 Temperature (Fahrenheit): 98.2 Pain Score (1-10): 0 Nausea: No Vomiting: No Complications none Patient Status: awake, reacts, patent Hydration Status: adequate Drug: Letha Delacruz MD Dec 21, 2019 10:31
--- NOTE | 2019-12-21 10:32 | Endoscopy Procedure Note ---
Endoscopy Procedure Note General Indication for Procedure: gib Procedures Performed: EGD, colonoscopy Operative Findings/Diagnosis: gastritis, 2 colon polyps Specimen: yes Pt Tolerated Procedure Well: Yes Estimated Blood Loss: none Anesthesia Anesthesiologist: arben talbot Anesthesia: MAC Inserted Devices Implant(s) used?: No GI Core Measures 50 yrs or older w/o bx or poly: Not Applicable 10yrs. F/U recommended: Not Applicable Nickolas Garner MD Dec 21, 2019 10:32
--- NOTE | 2019-12-21 10:34 | 48 Hour Post Anesthesia Eval ---
Post Anesthesia Evaluation Procedure: egd/colonoscopy w/bx Date of Evaluation: Dec 21, 2019 Time of Evaluation: 10:34 Blood Pressure Systolic: 108 0: 70 Pulse Rate: 87 Respiratory Rate: 18 Temperature (Fahrenheit): 98.2 O2 Sat by Pulse Oximetry: 99 Airway: patent Nausea: No Vomiting: No Pain Intensity: 0 Hydration Status: adequate Cardiopulmonary Status: stable Mental Status/LOC: patient returned to baseline Post-Anesthesia Complications: none Follow-up care needed: N/A Letha Dela Cruz MD Dec 21, 2019 10:34
--- NOTE | 2019-12-21 12:25 | Nephrology Progress Note ---
Assessment/Plan Plan #Hyponatremia- hypovolumic in the setting of nausea, emesis and diarrhea- improving #Hypomag due to decreased PO intake and diarrhea #nausea, emesis, diarrhea #Alcohol dependence #HTN #Anemia - plan for EGD/colo today - advance diet as tolerated - replete lytes prn - GI eval - antemetics - monitor for withdrawal - monitor lyte - avoid nephrotoxins - check iron panel - GI eval Subjective ROS Limited/Unobtainable: No Constitutional: Denies: no symptoms, chills, diaphoresis, fever, malaise, weakness, other HEENT: Denies: no symptoms, eye pain, blurred vision, tearing, double vision, ear pain, ear discharge, nose pain, nose congestion, throat pain, throat swelling, mouth pain, mouth swelling, other Genitourinary: Denies: no symptoms, burning, discharge, frequency, flank pain, hematuria, incontinence, pain, urgency, other Subjective Abd pain better s/p colo/EGD today no chest pain no SOB labs reviewed Objective Objective Last 24 Hour Vital Signs Date Time Temp Pulse Resp B/P (MAP) Pulse Ox O2 Delivery O2 Flow Rate FiO2 12/21/19 10:45 97.0 87 18 101/70 100 Room Air 12/21/19 10:40 83 18 104/75 98 Nasal Cannula 2 12/21/19 10:34 87 18 99 12/21/19 10:31 85 18 100 12/21/19 10:30 91 18 108/70 100 Nasal Cannula 4 12/21/19 10:25 74 18 105/70 100 Nasal Cannula 6 12/21/19 10:20 97.0 88 18 99/71 100 Nasal Cannula 6 12/21/19 08:22 Room Air 12/21/19 08:00 98.2 85 18 134/75 (94) 99 12/20/19 21:00 Room Air 12/20/19 20:00 97.9 84 18 149/84 (105) 99 12/20/19 16:00 98.3 78 18 130/65 (86) 99 Intake and Output 12/20/19 12/21/19 19:00 07:00 Intake Total 2500 ml 500 ml Output Total 200 ml Balance 2300 ml 500 ml Intake Oral 2500 ml 500 ml Output Stool Total 200 ml # Voids 6 6 # Bowel Movements 1 5 Laboratory Tests 12/21/19 05:40: White Blood Count 5.9, Red Blood Count 3.58L, Hemoglobin 10.6L, Hematocrit 32.1L , Mean Corpuscular Volume 90, Mean Corpuscular Hemoglobin 29.6, Mean Corpuscular Hemoglobin Concent 33.0, Red Cell Distribution Width 13.6, Platelet Count 159, Mean Platelet Volume 6.8, Neutrophils (%) (Auto) 48.4, Lymphocytes (% ) (Auto) 36.2, Monocytes (%) (Auto) 12.6H, Eosinophils (%) (Auto) 1.8, Basophils (%) (Auto) 1.1, Sodium Level 138, Potassium Level 4.0, Chloride Level 106, Carbon Dioxide Level 20L, Anion Gap 12, Blood Urea Nitrogen 4L, Creatinine 0.9, Estimat Glomerular Filtration Rate > 60, Glucose Level 90, Calcium Level 8.5 Height (Feet): 5 Height (Inches): 5.00 Weight (Pounds): 160 Virginia Pitt M.D. Dec 21, 2019 12:25
--- NOTE | 2019-12-21 14:14 | Procedure Note ---
DATE OF PROCEDURE: 12/21/2019 SURGEON: Nickolas Garner M.D. PROCEDURE: Upper endoscopy with biopsy and colonoscopy with biopsy. ANESTHESIA: Per Dr. Ford. INSTRUMENT: Olympus adult flexible upper endoscope and colonoscope. INDICATION: GI bleeding. REASON FOR PROCEDURE: The procedure, risks, benefits, and possible consequences, including hemorrhage, aspiration, perforation and infection, and alternative treatments, were explained to the patient/legal guardian by Dr. Nickolas Garner and the patient/legal guardian understood and accepted these risks. DESCRIPTION OF PROCEDURE: After informed consent was obtained and the patient was adequately sedated, Olympus upper endoscope was advanced from mouth into the second portion of the duodenum and retroflexion was performed in the stomach. The patient had few erosions in the prepyloric region. There was a questionable area of healing ulcer. Biopsy from this area was obtained. The rest of the upper endoscopy examination grossly looked within normal limits. At this time, the upper endoscope was retrieved and the patient was turned over for colonoscopy. First, rectal exam was performed, which was positive for internal hemorrhoids. Then, the scope was advanced from rectum into the cecum, documented by the appendix orifice, ileocecal valve, and right upper quadrant palpation. Quality of prep was very good. The patient had two diminutive polyps in the rectum, removed with the cold biopsy forceps technique. The patient had some scattered diverticulosis in the ascending colon area. Retroflexion of rectum showed evidence of medium-sized internal hemorrhoids. SUMMARY OF FINDINGS: 1. Questionable healing gastric ulcer. 2. Gastric erosions/gastritis, status post biopsy. 3. Internal hemorrhoids. 4. Two colonic polyps removed, see above for details. 5. Diverticulosis. RECOMMENDATIONS: 1. Follow up biopsy results and treat accordingly. 2. Continue PPI daily. 3. Resume diet. 4. Needs repeat colonoscopy in five years. I want to thank, Dr. Guzman, for this kind referral. Nickolas Garner M.D. DR: CHACORTA JOB#: [id number] CC: Awa Guzman M.D.; Fax#: [phone]
[2019-12-21] MEDS: Hydrocortisone 25mg supp RECTAL SCH (18:05)
[2019-12-21] MEDS ORDERED: AMBIEN5 MG ORAL (18:37)
[2019-12-21] MEDS ORDERED: ASPIRIN81 MG ORAL (18:37)
[2019-12-21] MEDS ORDERED: LOTENSIN20 MG ORAL (18:37)
[2019-12-21] MEDS: TraZODone 50mg tab ORAL PRN (20:04)
[2019-12-21] MEDS: Enoxaparin 40mg Inj SUBQ SCH (20:07)
--- NOTE | 2019-12-21 21:01 | Neurology Progress Note ---
Interim History Interim History ROS Limited/Unobtainable: No Interim History pending gi work up, hydrated Objective Physical Exam Last Vital Signs Date Time Temp Pulse Resp B/P (MAP) Pulse Ox O2 Delivery O2 Flow Rate FiO2 12/21/19 20:00 98.0 65 17 122/69 (86) 98 12/21/19 10:45 Room Air 12/21/19 10:40 2 Laboratory Tests Test 12/21/19 05:40 White Blood Count 5.9 K/UL (4.8-10.8) Red Blood Count 3.58 M/UL (4.20-5.40) L Hemoglobin 10.6 G/DL (12.0-16.0) L Hematocrit 32.1 % (37.0-47.0) L Mean Corpuscular Volume 90 FL (80-99) Mean Corpuscular Hemoglobin 29.6 PG (27.0-31.0) Mean Corpuscular Hemoglobin Concent 33.0 G/DL (32.0-36.0) Red Cell Distribution Width 13.6 % (11.6-14.8) Platelet Count 159 K/UL (150-450) Mean Platelet Volume 6.8 FL (6.5-10.1) Neutrophils (%) (Auto) 48.4 % (45.0-75.0) Lymphocytes (%) (Auto) 36.2 % (20.0-45.0) Monocytes (%) (Auto) 12.6 % (1.0-10.0) H Eosinophils (%) (Auto) 1.8 % (0.0-3.0) Basophils (%) (Auto) 1.1 % (0.0-2.0) Sodium Level 138 MMOL/L (136-145) Potassium Level 4.0 MMOL/L (3.5-5.1) Chloride Level 106 MMOL/L (98-107) Carbon Dioxide Level 20 MMOL/L (21-32) L Anion Gap 12 mmol/L (5-15) Blood Urea Nitrogen 4 mg/dL (7-18) L Creatinine 0.9 MG/DL (0.55-1.30) Estimat Glomerular Filtration Rate > 60 mL/min (>60) Glucose Level 90 MG/DL (74-106) Calcium Level 8.5 MG/DL (8.5-10.1) Impression/Recommendations Problems: (1) Weakness (2) Nausea, vomiting, and diarrhea (3) Hypertension (4) Type II diabetes mellitus (5) Alcoholism Status: stable Diagnostic Impression encephalopathy likely 2/2 to dehydration belén ivfs na goal 135-145 map > 65 atb per primary pt ot Adams Rae MD Dec 21, 2019 21:01
[2019-12-22] VITALS (9 sets, daily range): BP systolic 122–144; BP diastolic 70–81
[2019-12-22 06:27] LABS: BASOPHILS % (AUTO) 0.9 % (0.0-2.0); HEMATOCRIT 29.4 % (37.0-47.0); HEMOGLOBIN 9.7 G/DL (12.0-16.0); MEAN CORPUSCULAR VOLUME 89 FL (80-99); MONOCYTES % (AUTO) 11.7 % (1.0-10.0); NEUTROPHILS % (AUTO) 60.3 % (45.0-75.0); PLATELET COUNT 132 K/UL (150-450); RED BLOOD COUNT 3.29 M/UL (4.20-5.40); RED CELL DISTRIBUTION WIDTH 13.8 % (11.6-14.8); WHITE BLOOD COUNT 5.9 K/UL (4.8-10.8)
[2019-12-22] MEDS: NovoLOG Insulin Flexpen SUBQ SCH ×4 (06:30→20:11)
[2019-12-22 07:01] LABS: ANION GAP 10 mmol/L (5-15); BLOOD UREA NITROGEN 4 mg/dL (7-18); CALCIUM 8.8 MG/DL (8.5-10.1); CARBON DIOXIDE 21 MMOL/L (21-32); CHLORIDE 104 MMOL/L (98-107); CREATININE 0.9 MG/DL (0.55-1.30); POTASSIUM 3.9 MMOL/L (3.5-5.1); SODIUM 135 MMOL/L (136-145)
[2019-12-22] MEDS: Hydrocortisone 25mg supp RECTAL SCH ×2 (08:46→18:30)
[2019-12-22] MEDS: Lacri-Lube Opth Oint 3.5gm BOTH EYES SCH ×2 (08:46→18:30)
[2019-12-22] MEDS: Docusate 100mg cap ORAL SCH ×2 (08:46→20:05)
--- NOTE | 2019-12-22 09:49 | General Progress Note ---
Assessment/Plan Status: stable Assessment/Plan: N/V diarrhea elevated LFTS hypoalbuminemia DM HTN elevated CEA fu CT stool studies>>>neg s/p EGD and colonoscopy: SUMMARY OF FINDINGS: 1. Questionable healing gastric ulcer. 2. Gastric erosions/gastritis, status post biopsy. 3. Internal hemorrhoids. 4. Two colonic polyps removed, see above for details. 5. Diverticulosis. add ppi Subjective ROS Limited/Unobtainable: Yes Allergies: Coded Allergies: No Known Allergies (Unverified , 05/07/19) Objective Last 24 Hour Vital Signs Date Time Temp Pulse Resp B/P (MAP) Pulse Ox O2 Delivery O2 Flow Rate FiO2 12/22/19 08:00 98.2 85 18 126/75 (92) 99 12/22/19 07:20 Room Air 12/22/19 04:00 98.4 72 18 144/81 (102) 99 12/21/19 21:00 Room Air 12/21/19 20:00 98.0 65 17 122/69 (86) 98 12/21/19 16:00 98.0 77 18 132/72 (92) 99 12/21/19 12:00 97.6 68 20 135/79 (97) 95 12/21/19 10:45 97.0 87 18 101/70 100 Room Air 12/21/19 10:40 83 18 104/75 98 Nasal Cannula 2 12/21/19 10:34 87 18 99 12/21/19 10:31 85 18 100 12/21/19 10:30 91 18 108/70 100 Nasal Cannula 4 12/21/19 10:25 74 18 105/70 100 Nasal Cannula 6 12/21/19 10:20 97.0 88 18 99/71 100 Nasal Cannula 6 Intake and Output 12/21/19 12/22/19 19:00 07:00 Intake Total 675 ml 800 ml Balance 675 ml 800 ml Intake Oral 300 ml 800 ml IV Total 375 ml # Voids 2 2 Laboratory Tests 12/22/19 05:20: White Blood Count 5.9, Red Blood Count 3.29L, Hemoglobin 9.7L, Hematocrit 29.4L , Mean Corpuscular Volume 89, Mean Corpuscular Hemoglobin 29.6, Mean Corpuscular Hemoglobin Concent 33.1, Red Cell Distribution Width 13.8, Platelet Count 132L, Mean Platelet Volume 6.9, Neutrophils (%) (Auto) 60.3, Lymphocytes ( %) (Auto) 26.0, Monocytes (%) (Auto) 11.7H, Eosinophils (%) (Auto) 1.0, Basophils (%) (Auto) 0.9, Sodium Level 135L, Potassium Level 3.9, Chloride Level 104, Carbon Dioxide Level 21, Anion Gap 10, Blood Urea Nitrogen 4L, Creatinine 0.9, Estimat Glomerular Filtration Rate > 60, Glucose Level 78, Calcium Level 8.8 Height (Feet): 5 Height (Inches): 5.00 Weight (Pounds): 160 General Appearance: alert EENT: normal ENT inspection Neck: supple Cardiovascular: normal rate Respiratory/Chest: decreased breath sounds Abdomen: normal bowel sounds, non tender, soft Extremities: non-tender Nickolas Garner MD Dec 22, 2019 09:49
--- NOTE | 2019-12-22 12:35 | Nephrology Progress Note ---
Assessment/Plan Plan #Hyponatremia- hypovolumic in the setting of nausea, emesis and diarrhea- improving #Hypomag due to decreased PO intake and diarrhea #nausea, emesis, diarrhea #Alcohol dependence #HTN #Anemia - monitor sodium - f/u Ct abdomen pelvis - s/p EGD/colo 12/20 - advance diet as tolerated - replete lytes prn - GI eval - antemetics - monitor for withdrawal - monitor lyte - avoid nephrotoxins - check iron panel- noted - GI eval Subjective ROS Limited/Unobtainable: No Subjective Abd pain better s/p colo/EGD yesterday CT abd pelvis ordered no chest pain no SOB labs reviewed Objective Objective Last 24 Hour Vital Signs Date Time Temp Pulse Resp B/P (MAP) Pulse Ox O2 Delivery O2 Flow Rate FiO2 12/22/19 08:00 98.2 85 18 126/75 (92) 99 12/22/19 07:20 Room Air 12/22/19 04:00 98.4 72 18 144/81 (102) 99 12/21/19 21:00 Room Air 12/21/19 20:00 98.0 65 17 122/69 (86) 98 12/21/19 16:00 98.0 77 18 132/72 (92) 99 Intake and Output 12/21/19 12/22/19 19:00 07:00 Intake Total 675 ml 800 ml Balance 675 ml 800 ml Intake Oral 300 ml 800 ml IV Total 375 ml # Voids 2 2 Laboratory Tests 12/22/19 05:20: White Blood Count 5.9, Red Blood Count 3.29L, Hemoglobin 9.7L, Hematocrit 29.4L , Mean Corpuscular Volume 89, Mean Corpuscular Hemoglobin 29.6, Mean Corpuscular Hemoglobin Concent 33.1, Red Cell Distribution Width 13.8, Platelet Count 132L, Mean Platelet Volume 6.9, Neutrophils (%) (Auto) 60.3, Lymphocytes ( %) (Auto) 26.0, Monocytes (%) (Auto) 11.7H, Eosinophils (%) (Auto) 1.0, Basophils (%) (Auto) 0.9, Sodium Level 135L, Potassium Level 3.9, Chloride Level 104, Carbon Dioxide Level 21, Anion Gap 10, Blood Urea Nitrogen 4L, Creatinine 0.9, Estimat Glomerular Filtration Rate > 60, Glucose Level 78, Calcium Level 8.8 Height (Feet): 5 Height (Inches): 5.00 Weight (Pounds): 160 Virginia Pitt M.D. Dec 22, 2019 12:35
--- NOTE | 2019-12-22 14:57 | General Progress Note ---
Assessment/Plan Status: stable Assessment/Plan: 68F with DM, HTN and ETOH dependance presenting with 2 week onset of nausea, vomiting and diarrhea. Medical work up consistent with hyponatremia with serum Na: 129 and physical examination significant for hypovolumic state. Patient being admitted for further observation and medical management #Intractable nausea #Diarrhea #positive Occult blood -Likely viral vs. gastroenteritis in etiology -Continue with IVF hydration. -PRN antiemetics. -Monitor electrolytes. -Stool C. difficile negative -stool occult positive -CT A/P reviewed, no acute process -GI following, EGD and colonoscopy negative -PPI #Dizziness -check orthostatic vs -non-reproducible w/positioning -cont. fall precautions -cardio consulted for possible holter monitor #Hypovolumic Hyponatremia, resolved #Hypomagnesemia, POA -Continue IV hydration -Electrolytes replaced, ctm -Nephrology following, recs appreciated #Essential hypertension -Patient reportedly on benazepril as outpatient -Cont to monitor pressures -if pressures cont. to climb will start lisinopril -hydralazine PRN #Transaminitis #ETOH dependance -AST 80, ALT: 42 consistent with alcoholic liver disease -Last drink > 1 week ago. -Monitor for evidence of withdrawal, less likely given last drink was > 1 week ago #Non-insulin dependant type II DM: -Insulin SS -Diabetic diet. #Normocytic Anemia -Serum hgb: 10.7 -No signs of acute bleed. -Continue to monitor. DVT PPx: heparin subq I spent 38 minutes on this patient's case, and 25% was dedicated to counseling, dw pt lab results, and care coordination which included discussions with RN, case management, consulting MDs and PCP, Dr. Coughlin. Subjective Allergies: Coded Allergies: No Known Allergies (Unverified , 05/07/19) Subjective f/u for N/V, diarrhea. :Pt notes acid reflux and light headedness when ambulating. Pt denies falls however states she feels generalized weakness. Pt refused NH on d/c. Objective Last 24 Hour Vital Signs Date Time Temp Pulse Resp B/P (MAP) Pulse Ox O2 Delivery O2 Flow Rate FiO2 12/22/19 12:00 98.0 80 18 135/80 (98) 98 12/22/19 08:00 98.2 85 18 126/75 (92) 99 12/22/19 07:20 Room Air 12/22/19 04:00 98.4 72 18 144/81 (102) 99 12/21/19 21:00 Room Air 12/21/19 20:00 98.0 65 17 122/69 (86) 98 12/21/19 16:00 98.0 77 18 132/72 (92) 99 Intake and Output 12/21/19 12/22/19 19:00 07:00 Intake Total 675 ml 800 ml Balance 675 ml 800 ml Intake Oral 300 ml 800 ml IV Total 375 ml # Voids 2 2 Laboratory Tests 12/22/19 05:20: White Blood Count 5.9, Red Blood Count 3.29L, Hemoglobin 9.7L, Hematocrit 29.4L , Mean Corpuscular Volume 89, Mean Corpuscular Hemoglobin 29.6, Mean Corpuscular Hemoglobin Concent 33.1, Red Cell Distribution Width 13.8, Platelet Count 132L, Mean Platelet Volume 6.9, Neutrophils (%) (Auto) 60.3, Lymphocytes ( %) (Auto) 26.0, Monocytes (%) (Auto) 11.7H, Eosinophils (%) (Auto) 1.0, Basophils (%) (Auto) 0.9, Sodium Level 135L, Potassium Level 3.9, Chloride Level 104, Carbon Dioxide Level 21, Anion Gap 10, Blood Urea Nitrogen 4L, Creatinine 0.9, Estimat Glomerular Filtration Rate > 60, Glucose Level 78, Calcium Level 8.8 Height (Feet): 5 Height (Inches): 5.00 Weight (Pounds): 160 Objective General Appearance: alert, awake, in NAD Neck: normal alignment, supple Cardiovascular: normal rate, regular rhythm Respiratory/Chest: lungs clear, normal breath sounds Abdomen: non tender, soft, no guarding/rebound Ext: no edema Estefany Casanova M.D. Dec 22, 2019 14:57
[2019-12-22] MEDS: TraZODone 50mg tab ORAL PRN (20:12)
[2019-12-22] MEDS: Enoxaparin 40mg Inj SUBQ SCH (20:13)
--- NOTE | 2019-12-22 22:06 | Neurology Progress Note ---
Interim History Interim History ROS Limited/Unobtainable: No Interim History ambulating in hallway today, stronger Objective Physical Exam Last Vital Signs Date Time Temp Pulse Resp B/P (MAP) Pulse Ox O2 Delivery O2 Flow Rate FiO2 12/22/19 21:00 73 81 79 12/22/19 20:10 122/75 (91) 100 12/22/19 20:00 98.0 16 12/22/19 07:20 Room Air 12/21/19 10:40 2 Laboratory Tests Test 12/22/19 05:20 White Blood Count 5.9 K/UL (4.8-10.8) Red Blood Count 3.29 M/UL (4.20-5.40) L Hemoglobin 9.7 G/DL (12.0-16.0) L Hematocrit 29.4 % (37.0-47.0) L Mean Corpuscular Volume 89 FL (80-99) Mean Corpuscular Hemoglobin 29.6 PG (27.0-31.0) Mean Corpuscular Hemoglobin Concent 33.1 G/DL (32.0-36.0) Red Cell Distribution Width 13.8 % (11.6-14.8) Platelet Count 132 K/UL (150-450) L Mean Platelet Volume 6.9 FL (6.5-10.1) Neutrophils (%) (Auto) 60.3 % (45.0-75.0) Lymphocytes (%) (Auto) 26.0 % (20.0-45.0) Monocytes (%) (Auto) 11.7 % (1.0-10.0) H Eosinophils (%) (Auto) 1.0 % (0.0-3.0) Basophils (%) (Auto) 0.9 % (0.0-2.0) Sodium Level 135 MMOL/L (136-145) L Potassium Level 3.9 MMOL/L (3.5-5.1) Chloride Level 104 MMOL/L (98-107) Carbon Dioxide Level 21 MMOL/L (21-32) Anion Gap 10 mmol/L (5-15) Blood Urea Nitrogen 4 mg/dL (7-18) L Creatinine 0.9 MG/DL (0.55-1.30) Estimat Glomerular Filtration Rate > 60 mL/min (>60) Glucose Level 78 MG/DL (74-106) Calcium Level 8.8 MG/DL (8.5-10.1) Head: normocophalic Neck: no rigidity EENT: benign Neurologic Exam Mental Status: awake, oriented x4 Speech: normal speech Language: normal language Objective 4/5 in all 4 Impression/Recommendations Problems: (1) Weakness (2) Nausea, vomiting, and diarrhea (3) Hypertension (4) Type II diabetes mellitus (5) Alcoholism Status: stable Diagnostic Impression encephalopathy likely 2/2 to dehydration belén ivfs na goal 135-145 map > 65 atb per primary pt ot Adams Rae MD Dec 22, 2019 22:06
[2019-12-23 04:00] VITALS: BP 138/79
[2019-12-23] MEDS: NovoLOG Insulin Flexpen SUBQ SCH ×3 (05:50→16:30)
[2019-12-23 06:10] LABS: BASOPHILS % (AUTO) 1.1 % (0.0-2.0); EOSINOPHILS % (AUTO) 1.2 % (0.0-3.0); HEMATOCRIT 27.2 % (37.0-47.0); HEMOGLOBIN 9.1 G/DL (12.0-16.0); LYMPHOCYTES % (AUTO) 30.2 % (20.0-45.0); MEAN CORPUSCULAR VOLUME 90 FL (80-99); MONOCYTES % (AUTO) 13.9 % (1.0-10.0); NEUTROPHILS % (AUTO) 53.6 % (45.0-75.0); PLATELET COUNT 122 K/UL (150-450); RED BLOOD COUNT 3.03 M/UL (4.20-5.40); RED CELL DISTRIBUTION WIDTH 13.9 % (11.6-14.8)
[2019-12-23 06:16] LABS: BLOOD UREA NITROGEN 4 mg/dL (7-18); CALCIUM 8.5 MG/DL (8.5-10.1); CARBON DIOXIDE 23 MMOL/L (21-32); CREATININE 1.1 MG/DL (0.55-1.30)
[2019-12-23 07:04] LABS: CHLORIDE 104 MMOL/L (98-107); SODIUM 136 MMOL/L (136-145)
[2019-12-23 07:08] LABS: ANION GAP 9 mmol/L (5-15)
[2019-12-23 08:00] VITALS: BP 139/69
--- NOTE | 2019-12-23 08:25 | General Progress Note ---
Assessment/Plan Status: stable Assessment/Plan: N/V diarrhea elevated LFTS hypoalbuminemia DM HTN elevated CEA CT >>> no acute findings stool studies>>>neg s/p EGD and colonoscopy: SUMMARY OF FINDINGS: 1. Questionable healing gastric ulcer. 2. Gastric erosions/gastritis, status post biopsy. 3. Internal hemorrhoids. 4. Two colonic polyps removed, see above for details. 5. Diverticulosis. ppi dc planning per primary team Subjective ROS Limited/Unobtainable: Yes Allergies: Coded Allergies: No Known Allergies (Unverified , 05/07/19) Objective Last 24 Hour Vital Signs Date Time Temp Pulse Resp B/P (MAP) Pulse Ox O2 Delivery O2 Flow Rate FiO2 12/23/19 07:30 Room Air 12/23/19 04:00 98.2 76 18 138/79 (98) 99 12/22/19 21:00 73 81 79 12/22/19 21:00 Room Air 12/22/19 20:10 79 122/75 (91) 100 12/22/19 20:05 81 132/76 (94) 100 12/22/19 20:00 98.0 73 16 132/77 (95) 99 12/22/19 16:09 98.0 91 20 131/70 (90) 98 12/22/19 12:00 98.0 80 18 135/80 (98) 98 Intake and Output 12/22/19 12/23/19 19:00 07:00 Intake Total 240 ml Balance 240 ml Intake Oral 240 ml # Voids 2 Laboratory Tests 12/23/19 05:15: White Blood Count 5.0, Red Blood Count 3.03L, Hemoglobin 9.1L, Hematocrit 27.2L , Mean Corpuscular Volume 90, Mean Corpuscular Hemoglobin 30.2, Mean Corpuscular Hemoglobin Concent 33.6, Red Cell Distribution Width 13.9, Platelet Count 122L, Mean Platelet Volume 6.9, Neutrophils (%) (Auto) 53.6, Lymphocytes ( %) (Auto) 30.2, Monocytes (%) (Auto) 13.9H, Eosinophils (%) (Auto) 1.2, Basophils (%) (Auto) 1.1, Sodium Level 136, Potassium Level 4.0, Chloride Level 104, Carbon Dioxide Level 23, Anion Gap 9, Blood Urea Nitrogen 4L, Creatinine 1.1, Estimat Glomerular Filtration Rate > 60, Glucose Level 89, Calcium Level 8.5 Height (Feet): 5 Height (Inches): 5.00 Weight (Pounds): 160 General Appearance: alert EENT: PERRL/EOMI Neck: supple Cardiovascular: normal rate Respiratory/Chest: decreased breath sounds Abdomen: normal bowel sounds, non tender, soft Extremities: non-tender Nickolas Garner MD Dec 23, 2019 08:25
--- NOTE | 2019-12-23 08:34 | General Progress Note ---
Assessment/Plan Status: stable Assessment/Plan: 68F with DM, HTN and ETOH dependance presenting with 2 week onset of nausea, vomiting and diarrhea. Medical work up consistent with hyponatremia with serum Na: 129 and physical examination significant for hypovolumic state. Patient being admitted for further observation and medical management #Intractable nausea - resolved #Diarrhea #positive Occult blood -Likely viral vs. gastroenteritis in etiology -PRN antiemetics. -Monitor electrolytes. -Stool C. difficile negative -CT A/P reviewed, no acute process -s/p EGD and colonoscopy 12/20 w/questionable healing gastric ulcer, internal hemorrhoids, 2 colonic polyps -cont. PPI #Dizziness #Generalized Weakness #Physical Deconditioning -check orthostatic vs -non-reproducible w/positioning -cont. fall precautions -PT/OT -CM for HH on d/c -cardio consulted for possible holter monitor #Hypovolumic Hyponatremia, resolved #Hypomagnesemia, POA -Continue IV hydration -Electrolytes replaced, ctm -Nephrology following, recs appreciated #Essential hypertension -Patient reportedly on benazepril as outpatient -Cont to monitor pressures -if pressures cont. to climb will start lisinopril -hydralazine PRN #Transaminitis #ETOH dependance -AST 80, ALT: 42 consistent with alcoholic liver disease -Last drink > 1 week ago. -Monitor for evidence of withdrawal, less likely given last drink was > 1 week ago #Non-insulin dependant type II DM: -Insulin SS -Diabetic diet. #Normocytic Anemia -No signs of acute bleed. -Continue to monitor. DVT PPx: heparin subq I spent 38 minutes on this patient's case, and 25% was dedicated to counseling, dw pt lab results, and care coordination which included discussions with RN, case management, consulting MDs and PCP, Dr. Coughlin. Subjective Allergies: Coded Allergies: No Known Allergies (Unverified , 05/07/19) Subjective f/u for N/V, diarrhea. :Pt notes acid reflux and light headedness when ambulating. Pt denies falls however states she feels generalized weakness. Pt refused NH on d/c. Objective Last 24 Hour Vital Signs Date Time Temp Pulse Resp B/P (MAP) Pulse Ox O2 Delivery O2 Flow Rate FiO2 12/23/19 07:30 Room Air 12/23/19 04:00 98.2 76 18 138/79 (98) 99 12/22/19 21:00 73 81 79 12/22/19 21:00 Room Air 12/22/19 20:10 79 122/75 (91) 100 12/22/19 20:05 81 132/76 (94) 100 12/22/19 20:00 98.0 73 16 132/77 (95) 99 12/22/19 16:09 98.0 91 20 131/70 (90) 98 12/22/19 12:00 98.0 80 18 135/80 (98) 98 Intake and Output 12/22/19 12/23/19 19:00 07:00 Intake Total 240 ml Balance 240 ml Intake Oral 240 ml # Voids 2 Laboratory Tests 12/23/19 05:15: White Blood Count 5.0, Red Blood Count 3.03L, Hemoglobin 9.1L, Hematocrit 27.2L , Mean Corpuscular Volume 90, Mean Corpuscular Hemoglobin 30.2, Mean Corpuscular Hemoglobin Concent 33.6, Red Cell Distribution Width 13.9, Platelet Count 122L, Mean Platelet Volume 6.9, Neutrophils (%) (Auto) 53.6, Lymphocytes ( %) (Auto) 30.2, Monocytes (%) (Auto) 13.9H, Eosinophils (%) (Auto) 1.2, Basophils (%) (Auto) 1.1, Sodium Level 136, Potassium Level 4.0, Chloride Level 104, Carbon Dioxide Level 23, Anion Gap 9, Blood Urea Nitrogen 4L, Creatinine 1.1, Estimat Glomerular Filtration Rate > 60, Glucose Level 89, Calcium Level 8.5 Height (Feet): 5 Height (Inches): 5.00 Weight (Pounds): 160 Objective General Appearance: alert, awake, in NAD Neck: normal alignment, supple Cardiovascular: normal rate, regular rhythm Respiratory/Chest: lungs clear, normal breath sounds Abdomen: non tender, soft, no guarding/rebound Ext: no edema Estefany Casanova M.D. Dec 23, 2019 08:34
[2019-12-23] MEDS: Lacri-Lube Opth Oint 3.5gm BOTH EYES SCH (08:38)
[2019-12-23] MEDS: Docusate 100mg cap ORAL SCH (08:38)
[2019-12-23] MEDS: Hydrocortisone 25mg supp RECTAL SCH (08:38)
[2019-12-23] MEDS ORDERED: ANUSOL HC1 SUPP RECTAL (10:13)
[2019-12-23] MEDS ORDERED: PANTOPRAZOLE SO40 MG ORAL (10:13)
[2019-12-23] MEDS ORDERED: ULTRA-LIGHT RO1 EACH MC (10:15)
--- NOTE | 2019-12-23 10:21 | Discharge Summary ---
Discharge Summary Hospital Course Date of Admission Dec 18, 2019 at 17:17 Date of Discharge Admitting Diagnosis dehydration, hyponatremiA HPI Virginie Cruz is a 68 year old female who was admitted on Dec 18, 2019 at 17 :17 for Dehydration,Hyponatremia Hospital Course 68F with DM, HTN and ETOH dependance presenting with 2 week onset of nausea, vomiting and diarrhea. Medical work up consistent with hyponatremia with serum Na: 129 and physical examination significant for hypovolumic state. CT abd/pelv consistent with gastritis, no acute process. Gi consulted and pt underwent EGD/ colonoscopy which revealed gastritis, healing gastric ulcer, internal hemorrhoids and 2 colonic polyps. Stool C. difficile was negative. Patient symptoms improved and was started on PPI. Nephrology consulted and pt's electrolytes improved with IVF. Patient noted lightheadedness with sitting up and occasional ambulation, patient was positive for orthostatics, patient encouraged to increase p.o. intake. Cardio consulted and Echo was obtained given pt's h/o of ETOH. Pt to f/u w/echo results w/PCP and cardiology, Dr. Mcneil, or your choice operator maintainer. #Intractable nausea - resolved #Diarrhea #positive Occult blood #Orthostatic Hypotension #Generalized Weakness #Physical Deconditioning #Hypovolumic Hyponatremia, resolved #Hypomagnesemia, POA #Essential hypertension #Transaminitis #ETOH dependance #Non-insulin dependant type II DM: #Normocytic Anemia D/c planning >30 mins. Discharge Medications New Medications: Walker (Ultra-Light Rollator) 1 Each Each EACH , #1 Hydrocortisone (Anucort-Hc) Y Supp 25 MG RECTAL TWICE A DAY for 14 Days, #28 SUPP 3 Refills Pantoprazole* (Pantoprazole*) 40 Mg Tablet. 40 MG ORAL EVERY 12 HOURS for 30 Days, #30 TAB 1 Refill Continued Medications: Aspirin* (Aspirin*) 81 Mg Tab.chew 81 MG ORAL DAILY for Unknown, TAB Benazepril Hcl* (Lotensin*) 20 Mg Tablet Unknown Dose ORAL DAILY for Blood pressure, TAB Zolpidem Tartrate* (Ambien*) 5 Mg Tablet Unknown Dose ORAL BEDTIME PRN for Insomnia, TAB Discharge Condition Upon Discharge: stable Discharge Vital Signs Last Vital Signs Date Time Temp Pulse Resp B/P (MAP) Pulse Ox O2 Delivery O2 Flow Rate FiO2 12/23/19 08:00 98.0 85 18 139/69 (92) 100 12/23/19 07:30 Room Air 12/21/19 10:40 2 Discharge Disposition Patient was discharged to ID'd from P.Estefany Houston M.D. Dec 23, 2019 10:21
--- NOTE | 2019-12-23 11:05 | Discharge Instructions ---
Discharge Instructions Discharge Instructions Follow up with: PCP, cardiology Dr. Mcneil or your choice diesel engine engineer for Echo results For Congestive Heart Failure Reminder Report to your physician any weight gain of 5 pounds or more in one week. Estefany Casanova M.D. Dec 23, 2019 11:05
--- NOTE | 2019-12-23 11:11 | Nephrology Progress Note ---
Assessment/Plan Plan #Hyponatremia- hypovolumic in the setting of nausea, emesis and diarrhea- improving #Hypomag due to decreased PO intake and diarrhea #nausea, emesis, diarrhea #Alcohol dependence #HTN #Anemia - monitor sodium - f/u Ct abdomen pelvis - s/p EGD/colo 12/20 - advance diet as tolerated - replete lytes prn - GI eval - antemetics - monitor for withdrawal - monitor lyte - avoid nephrotoxins - check iron panel- noted - GI eval Subjective ROS Limited/Unobtainable: No Constitutional: Denies: no symptoms, chills, diaphoresis, fever, malaise, weakness, other HEENT: Denies: no symptoms, eye pain, blurred vision, tearing, double vision, ear pain, ear discharge, nose pain, nose congestion, throat pain, throat swelling, mouth pain, mouth swelling, other Genitourinary: Denies: no symptoms, burning, discharge, frequency, flank pain, hematuria, incontinence, pain, urgency, other Neurologic/Psychiatric: Denies: no symptoms, anxiety, depressed, emotional problems, headache, numbness, paresthesia, pre-existing deficit, seizure, tingling, tremors, weakness, other Subjective Abd pain better s/p colo/EGD yesterday no chest pain no SOB labs reviewed Objective Objective Last 24 Hour Vital Signs Date Time Temp Pulse Resp B/P (MAP) Pulse Ox O2 Delivery O2 Flow Rate FiO2 12/23/19 08:00 98.0 85 18 139/69 (92) 100 12/23/19 08:00 85 86 122 12/23/19 07:30 Room Air 12/23/19 04:00 98.2 76 18 138/79 (98) 99 12/22/19 21:00 73 81 79 12/22/19 21:00 Room Air 12/22/19 20:10 79 122/75 (91) 100 12/22/19 20:05 81 132/76 (94) 100 12/22/19 20:00 98.0 73 16 132/77 (95) 99 12/22/19 16:09 98.0 91 20 131/70 (90) 98 12/22/19 12:00 98.0 80 18 135/80 (98) 98 Intake and Output 12/22/19 12/23/19 19:00 07:00 Intake Total 240 ml Balance 240 ml Intake Oral 240 ml # Voids 2 Laboratory Tests 12/23/19 05:15: White Blood Count 5.0, Red Blood Count 3.03L, Hemoglobin 9.1L, Hematocrit 27.2L , Mean Corpuscular Volume 90, Mean Corpuscular Hemoglobin 30.2, Mean Corpuscular Hemoglobin Concent 33.6, Red Cell Distribution Width 13.9, Platelet Count 122L, Mean Platelet Volume 6.9, Neutrophils (%) (Auto) 53.6, Lymphocytes ( %) (Auto) 30.2, Monocytes (%) (Auto) 13.9H, Eosinophils (%) (Auto) 1.2, Basophils (%) (Auto) 1.1, Sodium Level 136, Potassium Level 4.0, Chloride Level 104, Carbon Dioxide Level 23, Anion Gap 9, Blood Urea Nitrogen 4L, Creatinine 1.1, Estimat Glomerular Filtration Rate > 60, Glucose Level 89, Calcium Level 8.5 Height (Feet): 5 Height (Inches): 5.00 Weight (Pounds): 160 Virginia Pitt M.D. Dec 23, 2019 11:11
--- NOTE | 2019-12-23 11:29 | Cardiac Electrophysiology PN ---
Subjective Subjective [id number] Objective Last 24 Hour Vital Signs Date Time Temp Pulse Resp B/P (MAP) Pulse Ox O2 Delivery O2 Flow Rate FiO2 12/23/19 08:00 98.0 85 18 139/69 (92) 100 12/23/19 08:00 85 86 122 12/23/19 07:30 Room Air 12/23/19 04:00 98.2 76 18 138/79 (98) 99 12/22/19 21:00 73 81 79 12/22/19 21:00 Room Air 12/22/19 20:10 79 122/75 (91) 100 12/22/19 20:05 81 132/76 (94) 100 12/22/19 20:00 98.0 73 16 132/77 (95) 99 12/22/19 16:09 98.0 91 20 131/70 (90) 98 12/22/19 12:00 98.0 80 18 135/80 (98) 98 Intake and Output 12/22/19 12/23/19 19:00 07:00 Intake Total 240 ml Balance 240 ml Intake Oral 240 ml # Voids 2 Laboratory Tests Test 12/23/19 05:15 White Blood Count 5.0 K/UL (4.8-10.8) Red Blood Count 3.03 M/UL (4.20-5.40) L Hemoglobin 9.1 G/DL (12.0-16.0) L Hematocrit 27.2 % (37.0-47.0) L Mean Corpuscular Volume 90 FL (80-99) Mean Corpuscular Hemoglobin 30.2 PG (27.0-31.0) Mean Corpuscular Hemoglobin Concent 33.6 G/DL (32.0-36.0) Red Cell Distribution Width 13.9 % (11.6-14.8) Platelet Count 122 K/UL (150-450) L Mean Platelet Volume 6.9 FL (6.5-10.1) Neutrophils (%) (Auto) 53.6 % (45.0-75.0) Lymphocytes (%) (Auto) 30.2 % (20.0-45.0) Monocytes (%) (Auto) 13.9 % (1.0-10.0) H Eosinophils (%) (Auto) 1.2 % (0.0-3.0) Basophils (%) (Auto) 1.1 % (0.0-2.0) Sodium Level 136 MMOL/L (136-145) Potassium Level 4.0 MMOL/L (3.5-5.1) Chloride Level 104 MMOL/L (98-107) Carbon Dioxide Level 23 MMOL/L (21-32) Anion Gap 9 mmol/L (5-15) Blood Urea Nitrogen 4 mg/dL (7-18) L Creatinine 1.1 MG/DL (0.55-1.30) Estimat Glomerular Filtration Rate > 60 mL/min (>60) Glucose Level 89 MG/DL (74-106) Calcium Level 8.5 MG/DL (8.5-10.1) Doug Mcneil MD Dec 23, 2019 11:29
[2019-12-23 12:00] VITALS: BP 125/73
--- NOTE | 2019-12-23 19:00 | Neurology Progress Note ---
Interim History Interim History ROS Limited/Unobtainable: No Interim History ambulating strength much improved Objective Physical Exam Last Vital Signs Date Time Temp Pulse Resp B/P (MAP) Pulse Ox O2 Delivery O2 Flow Rate FiO2 12/23/19 12:00 98.3 89 20 125/73 (90) 97 12/23/19 07:30 Room Air 12/21/19 10:40 2 Laboratory Tests Test 12/23/19 05:15 White Blood Count 5.0 K/UL (4.8-10.8) Red Blood Count 3.03 M/UL (4.20-5.40) L Hemoglobin 9.1 G/DL (12.0-16.0) L Hematocrit 27.2 % (37.0-47.0) L Mean Corpuscular Volume 90 FL (80-99) Mean Corpuscular Hemoglobin 30.2 PG (27.0-31.0) Mean Corpuscular Hemoglobin Concent 33.6 G/DL (32.0-36.0) Red Cell Distribution Width 13.9 % (11.6-14.8) Platelet Count 122 K/UL (150-450) L Mean Platelet Volume 6.9 FL (6.5-10.1) Neutrophils (%) (Auto) 53.6 % (45.0-75.0) Lymphocytes (%) (Auto) 30.2 % (20.0-45.0) Monocytes (%) (Auto) 13.9 % (1.0-10.0) H Eosinophils (%) (Auto) 1.2 % (0.0-3.0) Basophils (%) (Auto) 1.1 % (0.0-2.0) Sodium Level 136 MMOL/L (136-145) Potassium Level 4.0 MMOL/L (3.5-5.1) Chloride Level 104 MMOL/L (98-107) Carbon Dioxide Level 23 MMOL/L (21-32) Anion Gap 9 mmol/L (5-15) Blood Urea Nitrogen 4 mg/dL (7-18) L Creatinine 1.1 MG/DL (0.55-1.30) Estimat Glomerular Filtration Rate > 60 mL/min (>60) Glucose Level 89 MG/DL (74-106) Calcium Level 8.5 MG/DL (8.5-10.1) Head: normocophalic Neck: no rigidity EENT: benign Neurologic Exam Mental Status: awake, oriented x4 Speech: normal speech Language: normal language Objective 4/5 in all 4 Impression/Recommendations Problems: (1) Weakness (2) Hypertension (3) Type II diabetes mellitus (4) Alcoholism (5) Nausea, vomiting, and diarrhea Status: stable Diagnostic Impression encephalopathy likely 2/2 to dehydration belén ivfs na goal 135-145 map > 65 atb per primary pt ot Adams Rae MD Dec 23, 2019 19:00
--- NOTE | 2019-12-23 20:45 | Consultation ---
DATE OF CONSULTATION: 12/23/2019 CARDIOLOGY CONSULTATION CONSULTING PHYSICIAN: Doug Mcneil MD. REFERRING PHYSICIAN: Awa Guzman MD. REASON FOR CONSULTATION: Hypotension and dizziness. HISTORY OF PRESENT ILLNESS: The patient is a 68-year-old lady with history of , diabetes, and history of alcohol use presented with two weeks of nausea, vomiting and diarrhea. The patient was found to be hyponatremic with sodium 129 and was hypovolemic. The patient was admitted on 12/18/2019. The patient subsequently underwent EGD and colonoscopy on 12/21/2019 that showed healing gastric ulcers, internal hemorrhoids, and two colonic polyps. A Cardiology consultation was obtained for further evaluation. The patient states that her blood pressure at home was low and her physician stopped her benazepril as an outpatient and she was not taking it. REVIEW OF SYSTEMS: Review of systems was negative other than what was mentioned in the history of present illness. PAST MEDICAL HISTORY: As mentioned above. FAMILY HISTORY: Noncontributory. SOCIAL HISTORY: She lives at home. Does not smoke or drink alcohol. PHYSICAL EXAMINATION: VITAL SIGNS: Blood pressure 139/69, pulse 85, respirations 18, and temperature 98. HEAD AND NECK: No JVD. LUNGS: Clear. CARDIOVASCULAR: Regular S1 and S2 with no gallop or murmur. ABDOMEN: Soft. EXTREMITIES: No pitting edema. LABORATORY AND DIAGNOSTIC DATA: White count of 5, hemoglobin 9, hematocrit of 27.2, and platelet count is 122. Sodium 132, potassium 4.0, BUN of 4, creatinine 1.1. Urine toxicology is negative. INR is 1. ASSESSMENT AND PLAN: 1. Hypotension and dizziness. Blood pressure is improved. Currently the patient is off blood pressure medication. If as an outpatient blood pressure goes higher, then we will resume the patient on FREDIS inhibitor or angiotensin receptor blockers especially the patient is also a diabetic. In the meantime, we will get an echocardiogram to make sure the patient has not cardiomyopathy with history of alcohol use. 2. History of alcohol use. Last drink was about a week ago. We will get an echocardiogram to make sure the patient has not developed cardiomyopathy. 3. Hypovolemia and hyponatremia that was resolved. 4. Positive occult blood. Further evaluation by GI. The patient underwent EGD and colonoscopy on 12/21/2019 as mentioned above and stool C. diff was negative. Thank you very much for allowing me to participate in the care of this patient. Please do not hesitate to contact me if you have any questions regarding my evaluation. Sincerely, Doug Mcneil M.D. DR: Ramone JOB#: [id number] CC:
== END 2019-12-23 17:45 | disposition home health service (06) | DRG 641 ==
LOC: EDBD 12:47 → EMR 13:27 → 3E 17:17 → EDBEDREQ 17:52 → 3E 22:13
PROC: 0DBP8ZZ Excision of Rectum, Via Natural or Artificial Opening Endoscopic (ICD-10-PCS; principal; 2019-12-21 09:55)
PROC: 0DB78ZX Excision of Stomach, Pylorus, Via Natural or Artificial Opening Endoscopic, Diagnostic (ICD-10-PCS; principal; 2019-12-21 09:55)
DX: E87.1 Hypo-osmolality and hyponatremia (principal); F10.20 Alcohol dependence, uncomplicated; E86.0 Dehydration; R19.7 Diarrhea, unspecified; R11.2 Nausea with vomiting, unspecified; I95.1 Orthostatic hypotension; R53.1 Weakness; E83.42 Hypomagnesemia; I10 Essential (primary) hypertension; R74.0 Nonspecific elevation of levels of transaminase and lactic acid dehydrogenase [LDH]; K29.70 Gastritis, unspecified, without bleeding; E11.9 Type 2 diabetes mellitus without complications; D64.9 Anemia, unspecified; K64.8 Other hemorrhoids; Z79.82 Long term (current) use of aspirin; K57.90 Diverticulosis of intestine, part unspecified, without perforation or abscess without bleeding; E88.09 Other disorders of plasma-protein metabolism, not elsewhere classified
CPT/HCPCS: 36415; 71045; 74177; 80048; 80053; 80076; 80307; 81003; 82150; 82270; 82378; 82570; 82607; 82746; 83036; 83540; 83550; 83605; 83735; 83930; 83935; 84100; 84300; 84484; 85025; 85610; 87045; 87324; 93005; 93306; 94003; 94150; 96361; 96374; 96376; 99285; J1815; J2405; J7030

== ENCOUNTER 2019-12-26 18:06 | Emergency (ER) | payer MEDICARE ==
[~2019-12-26] VITALS: Ht 157.5 cm; Wt 54.4 kg
[~2019-12-26 18:06] MED LIST: AMBIEN5 MG ORAL; ANUSOL HC1 SUPP RECTAL; ASPIRIN81 MG ORAL; LOTENSIN20 MG ORAL; PANTOPRAZOLE SO40 MG ORAL; ULTRA-LIGHT RO1 EACH MC
[2019-12-26 18:10] VITALS: BP 129/83
--- NOTE | 2019-12-26 18:10 | NUR ---
ED Nurse Note: Pt was brought in by ambulance from home d/t (3 times) witnessed by family. Pt is AOx4, calm and cooperative. Pt denies any pain nor discomfort as of now. Placed on bed, safety measures in placed. VSS, on RA, afebrile on triage. Will continue to monitor.
--- NOTE | 2019-12-26 18:35 | Emergency Room Report ---
History of Present Illness General Chief Complaint: Multiple Trauma/Fall Source: Patient, Medical Record, EMS Present Illness HPI Patient is a 68-year-old female past medical history of GERD who presents to the ER after multiple falls today. Patient states that she feels dizzy and falls. She does not think that she hit her head. She states that she was on the ground and unable to get up. She complains of pain to her right lower rib from a fall several weeks ago. She denies any abdominal pain, back pain or buttock pain. She states that she was recently admitted for nausea and vomiting and gastritis. She denies any shortness of breath or chest pain prior to her falls. She denies any focal weakness. She denies any slurred speech. Per EMS patient had called them several times today. Allergies: Coded Allergies: No Known Allergies (Unverified , 05/07/19) COVID-19 Screening Contact w/high risk pt: No Recent Travel to affected area: No Experienced COVID-19 symptoms?: No COVID-19 symptoms experienced: Cough Patient History Reviewed Nursing Documentation: PMH: Agreed; PSxH: Agreed Nursing Documentation-PMH Past Medical History: No History, Except For Hx Cardiac Problems: Yes Hx Hypertension: Yes Hx Diabetes: Yes - 10-15 yrs Hx Cancer: No Hx Gastrointestinal Problems: No Hx Neurological Problems: No Review of Systems All Other Systems: negative except mentioned in HPI Physical Exam Vital Signs Date Time Temp Pulse Resp B/P (MAP) Pulse Ox O2 Delivery O2 Flow Rate FiO2 12/26/19 18:02 98.6 101 16 129/83 (98) 98 Room Air Sp02 EP Interpretation: reviewed, normal General Appearance: no apparent distress, alert, GCS 15, non-toxic Head: normocephalic, atraumatic Eyes: bilateral eye normal inspection, bilateral eye PERRL ENT: hearing grossly normal, normal pharynx, no angioedema, normal voice Neck: full range of motion, supple/symm/no masses Respiratory: chest non-tender, lungs clear, normal breath sounds, speaking full sentences Cardiovascular #1: regular rate, rhythm, no edema Gastrointestinal: normal bowel sounds, non tender, soft, non-distended, no guarding, no rebound Rectal: deferred Genitourinary: normal inspection, no CVA tenderness Musculoskeletal: other - L anterior knee superficial abrasion Neurologic: alert, motor strength/tone normal, oriented x3, sensory intact, responsive, speech normal Psychiatric: judgement/insight normal, memory normal, mood/affect normal, no suicidal/homicidal ideation Skin: no rash Lymphatic: no adenopathy Medical Decision Making Diagnostic Impression: Primary Impression: Recurrent falls Additional Impressions: Anemia Failure to thrive ER Course Patient's vital signs are stable. She is anemic but not currently requiring a blood transfusion.I spoke with Dr. Portillo from [facility]. He will be transferring the patient for further treatment and evaluation. Laboratory Tests Test 12/26/19 18:40 12/26/19 18:50 White Blood Count 5.5 K/UL (4.8-10.8) Red Blood Count 3.32 M/UL (4.20-5.40) L Hemoglobin 9.5 G/DL (12.0-16.0) L Hematocrit 31.6 % (37.0-47.0) L Mean Corpuscular Volume 95 FL (80-99) Mean Corpuscular Hemoglobin 28.5 PG (27.0-31.0) Mean Corpuscular Hemoglobin Concent 30.0 G/DL (32.0-36.0) L Red Cell Distribution Width 15.2 % (11.6-14.8) H Platelet Count 180 K/UL (150-450) Mean Platelet Volume 8.0 FL (6.5-10.1) Neutrophils (%) (Auto) 44.4 % (45.0-75.0) L Lymphocytes (%) (Auto) 35.8 % (20.0-45.0) Monocytes (%) (Auto) 15.6 % (1.0-10.0) H Eosinophils (%) (Auto) 1.9 % (0.0-3.0) Basophils (%) (Auto) 2.4 % (0.0-2.0) H D-Dimer 0.21 mg/L FEU (0.00-0.49) Sodium Level 136 MMOL/L (136-145) Potassium Level 4.1 MMOL/L (3.5-5.1) Chloride Level 102 MMOL/L (98-107) Carbon Dioxide Level 20 MMOL/L (21-32) L Anion Gap 14 mmol/L (5-15) Blood Urea Nitrogen 10 mg/dL (7-18) Creatinine 0.9 MG/DL (0.55-1.30) Estimated Glomerular Filtration Rate > 60 mL/min (>60) Glucose Level 100 MG/DL (74-106) Calcium Level 8.5 MG/DL (8.5-10.1) Magnesium Level 1.7 MG/DL (1.8-2.4) L Total Bilirubin 0.2 MG/DL (0.2-1.0) Aspartate Amino Transferase (AST) 39 U/L (15-37) H Alanine Aminotransferase (ALT) 37 U/L (12-78) Alkaline Phosphatase 76 U/L (46-116) Total Creatine Kinase 90 U/L (26-308) Troponin I 0.000 ng/mL (0.000-0.056) Total Protein 6.2 G/DL (6.4-8.2) L Albumin 2.9 G/DL (3.4-5.0) L Globulin 3.3 g/dL Albumin/Globulin Ratio 0.9 (1.0-2.7) L Urine Color Pale yellow Urine Appearance Clear Urine pH 5 (4.5-8.0) Urine Specific [place] 1.010 (1.005-1.035) Urine Protein Negative (NEGATIVE) Urine Glucose (UA) Negative (NEGATIVE) Urine Ketones Negative (NEGATIVE) Urine Blood Negative (NEGATIVE) Urine Nitrite Negative (NEGATIVE) Urine Bilirubin Negative (NEGATIVE) Urine Urobilinogen Normal MG/DL (0.0-1.0) Urine Leukocyte Esterase Negative (NEGATIVE) EKG Diagnostic Results EKG Time: 18:27 EP Interpretation: Kelsey Rate: normal Rhythm: NSR ASA given to the pt in ED: No Rhythm Strip Diag. Results Rhythm Strip Time: 18:34 EP Interpretation: yes - MD Kelsey Rate: 90 Rhythm: NSR, no PVC's, no ectopy Last Vital Signs Date Time Temp Pulse Resp B/P (MAP) Pulse Ox O2 Delivery O2 Flow Rate FiO2 12/26/19 18:02 98.6 101 16 129/83 (98) 98 Room Air Disposition: SHORT-TERM HOSP Condition: Critical Physician Consult: Rajwinder Chaudhry M.D. Dec 26, 2019 18:35
--- NOTE | 2019-12-26 18:51 | NUR ---
ED Nurse Note: urine collected via straight cath; sent to labs
--- NOTE | 2019-12-26 18:59 | Diagnostic Imaging Report ---
EXAM: XR Chest, 1 View CLINICAL HISTORY: FALL TECHNIQUE: Frontal view of the chest. COMPARISON: 12/18/19 FINDINGS: Lungs: Unremarkable. No consolidation. Pleural space: Unremarkable. No pneumothorax. Heart: Unremarkable. No cardiomegaly. Mediastinum: Unremarkable. Bones/joints: Unremarkable. IMPRESSION: Normal chest x-ray. No change from prior study
--- NOTE | 2019-12-26 19:01 | NUR ---
ED Nurse Note: pt went to CT accompanied by tech
[2019-12-26 19:10] VITALS: BP 127/87
[2019-12-26 19:12] LABS: BILIRUBIN, URINE NEGATIVE (NEGATIVE); COLOR,URINE PALE YELLOW; GLUCOSE, URINE (UA) NEGATIVE (NEGATIVE); KETONES,URINE NEGATIVE (NEGATIVE); LEUKOCYTE ESTERASE ,URINE NEGATIVE (NEGATIVE); NITRITE,URINE NEGATIVE (NEGATIVE); PH,URINE 5 (4.5-8.0); PROTEIN,URINE NEGATIVE (NEGATIVE); UROBILINOGEN,URINE NORMAL MG/DL (0.0-1.0)
[2019-12-26 19:13] LABS: APPEARANCE,URINE CLEAR
--- NOTE | 2019-12-26 19:14 | NUR ---
ED Nurse Note: Report recieved for pt. Pt currently away at [place].
--- NOTE | 2019-12-26 19:14 | NUR ---
ED Nurse Note: Report given to Teagan CLARKE for continuity of care.
[2019-12-26 19:16] LABS: BASOPHILS % (AUTO) 2.4 % (0.0-2.0); EOSINOPHILS % (AUTO) 1.9 % (0.0-3.0); HEMATOCRIT 31.6 % (37.0-47.0); HEMOGLOBIN 9.5 G/DL (12.0-16.0); LYMPHOCYTES % (AUTO) 35.8 % (20.0-45.0); MEAN CORPUSCULAR VOLUME 95 FL (80-99); MONOCYTES % (AUTO) 15.6 % (1.0-10.0); NEUTROPHILS % (AUTO) 44.4 % (45.0-75.0); PLATELET COUNT 180 K/UL (150-450); RED BLOOD COUNT 3.32 M/UL (4.20-5.40); RED CELL DISTRIBUTION WIDTH 15.2 % (11.6-14.8); WHITE BLOOD COUNT 5.5 K/UL (4.8-10.8)
[2019-12-26 19:17] LABS: ANION GAP 14 mmol/L (5-15); BLOOD UREA NITROGEN 10 mg/dL (7-18); CALCIUM 8.5 MG/DL (8.5-10.1); CARBON DIOXIDE 20 MMOL/L (21-32); CHLORIDE 102 MMOL/L (98-107); CREATININE 0.9 MG/DL (0.55-1.30); POTASSIUM 4.1 MMOL/L (3.5-5.1); SODIUM 136 MMOL/L (136-145)
[2019-12-26 19:20] LABS: ALANINE AMINOTRANSFERASE 37 U/L (12-78); ALBUMIN 2.9 G/DL (3.4-5.0); ALBUMIN/GLOBULIN RATIO 0.9 (1.0-2.7); ALKALINE PHOSPHATASE 76 U/L (46-116); ASPARTATE AMINO TRANSFERASE 39 U/L (15-37); BILIRUBIN,TOTAL 0.2 MG/DL (0.2-1.0); CREATINE KINASE 90 U/L (26-308)
--- NOTE | 2019-12-26 19:25 | NUR ---
ED Nurse Note: Pt returned from CT in stable condition, AAO x 4, VSS no ss of distress noted. IV fluids resumed and pt placed on monitor
--- NOTE | 2019-12-26 19:32 | NUR ---
ED Nurse Note: Pt informed of decision to transport pt to different hospital facility per insurance, pt voiced concerns and desire not to remain in hospital. ERMD aware.
--- NOTE | 2019-12-26 19:43 | Diagnostic Imaging Report ---
EXAM: CT Head Without Intravenous Contrast CLINICAL HISTORY: FALL TECHNIQUE: Axial computed tomography images of the head/brain without intravenous contrast. CTDI is 53.4 mGy and DLP is 978.5 mGy-cm. One or more of the following dose reduction techniques were used: automated exposure control, adjustment of the mA and/or kV according to patient size, use of iterative reconstruction technique. COMPARISON: 05/07/19 FINDINGS: No intracranial hemorrhage, abnormal intra- or extra-axial collections or parenchymal lesions are seen. There are involutional changes with prominence of the sulci, basal cisterns and ventricles. Scattered white matter hypoattenuations are present, likely from small vessel disease. The montoya-white differentiation is preserved. No evidence of mass effect, midline shift, or edema. Identified subdural collection not seen on current study. The osseous structures are unremarkable. The visualized portions of the paranasal sinuses are clear. IMPRESSION: 1. No acute intracranial process. 2. Involutional changes with small vessel disease.
[2019-12-26 20:15] VITALS: BP 125/82
[2019-12-26 20:35] VITALS: BP 125/82
--- NOTE | 2019-12-26 20:35 | NUR ---
AMA: SEE AMA FORM. Pt informed of risk for AMA decision, Pt acknowledged information of risks. PT AAo x 4, ambulatory with steady gait. Pt took all belongings. VSS no ss of distress noted. IV and pt ID band removed without complications. Pt stated that she did not feel comfortable remaining in any hospital facility d/t current social conditions regarding COVID 19. ERMD aware and spoke to pt regarding decision.
== END 2019-12-26 20:35 | disposition short-term general hospital (02) ==
LOC: EDBD 18:06 → EMR 19:12
DX: R62.7 Adult failure to thrive (principal); Z68.21 Body mass index [BMI] 21.0-21.9, adult; Z91.81 History of falling; K21.9 Gastro-esophageal reflux disease without esophagitis; R05 Cough; R07.81 Pleurodynia; W19.XXXA Unspecified fall, initial encounter; Y92.9 Unspecified place or not applicable
CPT/HCPCS: 36415; 70450; 71045; 80053; 81003; 82550; 83735; 84484; 85025; 85379; 93005; 96360; 99285

== ENCOUNTER 2020-01-18 13:51 | Inpatient (IN) | payer MEDICARE ==
[~2020-01-18] VITALS: Ht 162.6 cm; Wt 66.9 kg
[2020-01-18 13:58] VITALS: BP 103/71
[2020-01-18] MEDS ORDERED: Morphine Sulfate 2mg/ml Inj(IV/IM USE ONLY) IVP ONE (14:00)
--- NOTE | 2020-01-18 14:05 | Emergency Room Report ---
History of Present Illness General Chief Complaint: Back Pain-No Injury Source: Patient, Medical Record Present Illness HPI Disclaimer: Please note that this report is being documented using DRAGON technology. This can lead to erroneous entry secondary to incorrect interpretation by the dictating instrument. HPI: 69-year-old female presents for evaluation of low back pain. No reported injury today however the patient had a fall from standing in the shower approximately 2-3 week ago. She had a head injury and loss of consciousness. CT scan of the head at that time was interpreted as unremarkable. She reports persistent low-grade headaches but no change in these headaches over the past few weeks. She does note worsening lower back pain over the past 2 days as well as weakness in the lower extremities. Denies numbness or tingling. Denies urinary retention, fecal incontinence. No trauma or injury reported today. Notes pain in the middle of the back and nonradiating. Patient has a history of hypertension diabetes but stopped taking medication several months ago which he says was ordered by her doctor. She has a history of anemia. PMH: Anemia, hypertension, diabetes PSH: Reviewed Allergies: Denies Social Hx: History of alcohol abuse Allergies: Coded Allergies: No Known Allergies (Unverified , 05/07/19) COVID-19 Screening Contact w/high risk pt: No Recent Travel to affected area: No Experienced COVID-19 symptoms?: No COVID-19 symptoms experienced: Cough COVID-19 Testing performed [employer]: No Nursing Documentation-PMH Past Medical History: No History, Except For Hx Cardiac Problems: Yes Hx Hypertension: Yes Hx Diabetes: Yes - 10-15 yrs Hx Cancer: No Hx Gastrointestinal Problems: No Hx Neurological Problems: No Review of Systems All Other Systems: negative except mentioned in HPI Physical Exam Vital Signs Date Time Temp Pulse Resp B/P (MAP) Pulse Ox O2 Delivery O2 Flow Rate FiO2 01/18/20 13:44 98.2 109 20 103/71 (82) 99 Room Air General: Awake and alert, no acute distress HEENT: Normocephalic. EOMI, PERRLA. Cardiovascular: RRR. S1 and S2 normal. No murmur appreciated Resp: Normal work of breathing. No cough, wheezing or crackles appreciated Abdomen: Abdomen is soft, nondistended. Nontender Skin: Intact. Areas of healing abrasions over the left side of the face and scalp, no active bleeding or purulent drainage MSK: Normal tone and bulk. Moving all extremities. No obvious deformity. Neuro: Awake and alert. Mentating appropriately. Sensation intact over the dermatomes of lower extremities. Back/Spine: No midline tenderness in the cervical, thoracic spine. There is tenderness in the midline over the lower lumbar spine without step-off or deformity. Medical Decision Making Diagnostic Impression: Primary Impression: Weakness generalized Additional Impressions: Degenerative disc disease, lumbar Back pain UTI (urinary tract infection) CANDELARIA (acute kidney injury) Anemia ER Course 69-year-old female presents for evaluation of lower back pain. No new trauma reported however the patient had a fall from standing approximately 2 to 3 weeks ago. Differential includes is not limited to dehydration, electrolyte abnormality, anemia, musculoskeletal weakness, occult fracture, compression fracture, radiculopathy, lumbar strain/spasm to name a few. Will obtain broad labs, give analgesia and obtain a CT scan of the spine. Laboratory Tests Test 01/18/20 14:10 01/18/20 15:10 White Blood Count 6.6 K/UL (4.8-10.8) Red Blood Count 2.98 M/UL (4.20-5.40) L Hemoglobin 8.9 G/DL (12.0-16.0) L Hematocrit 26.5 % (37.0-47.0) L Mean Corpuscular Volume 89 FL (80-99) Mean Corpuscular Hemoglobin 29.9 PG (27.0-31.0) Mean Corpuscular Hemoglobin Concent 33.6 G/DL (32.0-36.0) Red Cell Distribution Width 17.3 % (11.6-14.8) H Platelet Count 85 K/UL (150-450) L Mean Platelet Volume 6.6 FL (6.5-10.1) Neutrophils (%) (Auto) % (45.0-75.0) Lymphocytes (%) (Auto) % (20.0-45.0) Monocytes (%) (Auto) % (1.0-10.0) Eosinophils (%) (Auto) % (0.0-3.0) Basophils (%) (Auto) % (0.0-2.0) Differential Total Cells Counted 100 Neutrophils % (Manual) 73 % (45-75) Lymphocytes % (Manual) 17 % (20-45) L Monocytes % (Manual) 8 % (1-10) Eosinophils % (Manual) 2 % (0-3) Basophils % (Manual) 0 % (0-2) Band Neutrophils 0 % (0-8) Platelet Estimate Decreased L Platelet Morphology Normal Polychromasia 1+ Anisocytosis 1+ Sodium Level 139 MMOL/L (136-145) Potassium Level 3.1 MMOL/L (3.5-5.1) L Chloride Level 103 MMOL/L (98-107) Carbon Dioxide Level 23 MMOL/L (21-32) Anion Gap 13 mmol/L (5-15) Blood Urea Nitrogen 15 mg/dL (7-18) Creatinine 1.8 MG/DL (0.55-1.30) H Estimated Glomerular Filtration Rate 33.9 mL/min (>60) Glucose Level 112 MG/DL (74-106) H Calcium Level 8.7 MG/DL (8.5-10.1) Total Bilirubin 0.8 MG/DL (0.2-1.0) Aspartate Amino Transferase (AST) 35 U/L (15-37) Alanine Aminotransferase (ALT) 29 U/L (12-78) Alkaline Phosphatase 113 U/L (46-116) Total Protein 6.6 G/DL (6.4-8.2) Albumin 3.0 G/DL (3.4-5.0) L Globulin 3.6 g/dL Albumin/Globulin Ratio 0.8 (1.0-2.7) L Urine Color Yellow Urine Appearance Slightly cloudy Urine pH 5 (4.5-8.0) Urine Specific [place] 1.015 (1.005-1.035) Urine Protein 2+ (NEGATIVE) H Urine Glucose (UA) Negative (NEGATIVE) Urine Ketones Negative (NEGATIVE) Urine Blood 1+ (NEGATIVE) H Urine Nitrite Negative (NEGATIVE) Urine Bilirubin 1+ (NEGATIVE) H Urine Ictotest Negative (NEGATIVE) Urine Urobilinogen 1 MG/DL (0.0-1.0) H Urine Leukocyte Esterase 1+ (NEGATIVE) H Urine RBC 2-4 /HPF (0 - 2) H Urine WBC 20-30 /HPF (0 - 2) H Urine Squamous Epithelial Cells Few /LPF (NONE/OCC) Urine Bacteria Moderate /HPF (NONE) H Urine Opiates Screen Negative (NEGATIVE) Urine Barbiturates Screen Negative (NEGATIVE) Phencyclidine (PCP) Screen Negative (NEGATIVE) Urine Amphetamines Screen Negative (NEGATIVE) Urine Benzodiazepines Screen Positive (NEGATIVE) H Urine Cocaine Screen Negative (NEGATIVE) Urine Marijuana (THC) Screen Negative (NEGATIVE) Urine Ethyl Alcohol Pending CT/MRI/US Diagnostic Results CT/MRI/US Diagnostic Results : Impression Procedure: CT L Spine no Contrast Indication: Back pain s/p injury Technique: CT lumbar spine was performed utilizing automated exposure control without intravenous contrast material. Axial and coronal images were generated. CT dose: Total DLP 244 mGycm; CTDI vol 0.7 mGy Comparison: None Findings: No acute lumbar spine fracture. There are 5 nonrib-bearing lumbar-type vertebral bodies, assuming 12 paired ribs. Lumbar lordosis is maintained. There is no evidence of spondylolisthesis. There are multilevel discogenic degenerative changes of the lumbar spine with disc space narrowing and multilevel disc bulges most pronounced at L5-L4, L4-5 and L5-S1 where there is mild to moderate narrowing of the foramen. Vacuum disc phenomenon is also noted at multiple levels. There is also subchondral/endplate sclerosis, osteophyte formation and facet hypertrophy. Note that the central canal, disks and nerve roots are better evaluated on MRI, which can be obtained for further evaluation as clinically indicated. The abdominal aorta is normal in caliber with moderate to severe atherosclerotic calcification. Heterogeneous masses enlarge the uterus, some with calcifications. These most likely represent fibroids. IMPRESSION: No evidence of acute fracture or traumatic malalignment. Multilevel degenerative changes , more pronounced in the lower lumbar spine. Atherosclerotic vascular calcifications. Fibroid uterus. Dictated By: Balwinder Rodríguez M.D. Electronically Signed By: Balwinder Rodríguez M.D. Signed Date/Time 01/18/20 1545 CC: Cuate Land MD Reevaluation Time: 15:56 Last Vital Signs Date Time Temp Pulse Resp B/P (MAP) Pulse Ox O2 Delivery O2 Flow Rate FiO2 01/18/20 13:58 98.2 20 103/71 99 Room Air 01/18/20 13:[address] shows multilevel degenerative changes in the lumbar spine but no evidence of acute fracture or other acute pathology. Labs show persistent decline in hemoglobin levels though not critical at this time may be attributing to her weakness and generalized fatigue.Creatinine acutely elevated at 1.8 with a normal BUN. Potassium slightly low at 3.1. Urinalysis consistent with acute urinary tract infection; ceftriaxone given. Will admit to panel physician. Disposition: ADMITTED INPATIENT Condition: Serious Cuate Land MD January 18, 2020 14:05
[2020-01-18] MEDS ORDERED: METFORMIN HCL500 M1 ORAL (14:14)
[2020-01-18] MEDS ORDERED: BENAZEPRIL HCL10 MG ORAL (14:14)
[2020-01-18 14:37] LABS: HEMATOCRIT 26.5 % (37.0-47.0); HEMOGLOBIN 8.9 G/DL (12.0-16.0); MEAN CORPUSCULAR VOLUME 89 FL (80-99); PLATELET COUNT 85 K/UL (150-450); RED BLOOD COUNT 2.98 M/UL (4.20-5.40); RED CELL DISTRIBUTION WIDTH 17.3 % (11.6-14.8); WHITE BLOOD COUNT 6.6 K/UL (4.8-10.8)
[2020-01-18 14:47] LABS: ANION GAP 13 mmol/L (5-15); BLOOD UREA NITROGEN 15 mg/dL (7-18); CALCIUM 8.7 MG/DL (8.5-10.1); CARBON DIOXIDE 23 MMOL/L (21-32); CHLORIDE 103 MMOL/L (98-107); CREATININE 1.8 MG/DL (0.55-1.30); POTASSIUM 3.1 MMOL/L (3.5-5.1); SODIUM 139 MMOL/L (136-145)
[2020-01-18 14:51] LABS: ALANINE AMINOTRANSFERASE 29 U/L (12-78); ALBUMIN/GLOBULIN RATIO 0.8 (1.0-2.7); ALKALINE PHOSPHATASE 113 U/L (46-116); ASPARTATE AMINO TRANSFERASE 35 U/L (15-37); BILIRUBIN,TOTAL 0.8 MG/DL (0.2-1.0)
[2020-01-18 15:46] LABS: APPEARANCE,URINE SLIGHTLY CLOUDY; BILIRUBIN, URINE 1+ (NEGATIVE); GLUCOSE, URINE (UA) NEGATIVE (NEGATIVE); KETONES,URINE NEGATIVE (NEGATIVE); LEUKOCYTE ESTERASE ,URINE 1+ (NEGATIVE); NITRITE,URINE NEGATIVE (NEGATIVE); PH,URINE 5 (4.5-8.0); PROTEIN,URINE 2+ (NEGATIVE); UROBILINOGEN,URINE 1 MG/DL (0.0-1.0)
[2020-01-18 15:47] LABS: COLOR,URINE YELLOW
--- NOTE | 2020-01-18 15:51 | Diagnostic Imaging Report ---
Indication: Back pain s/p injury Technique: CT lumbar spine was performed utilizing automated exposure control without intravenous contrast material. Axial and coronal images were generated. CT dose: Total DLP 244 mGycm; CTDI vol 0.7 mGy Comparison: None Findings: No acute lumbar spine fracture. There are 5 nonrib-bearing lumbar-type vertebral bodies, assuming 12 paired ribs. Lumbar lordosis is maintained. There is no evidence of spondylolisthesis. There are multilevel discogenic degenerative changes of the lumbar spine with disc space narrowing and multilevel disc bulges most pronounced at L5-L4, L4-5 and L5-S1 where there is mild to moderate narrowing of the foramen. Vacuum disc phenomenon is also noted at multiple levels. There is also subchondral/endplate sclerosis, osteophyte formation and facet hypertrophy. Note that the central canal, disks and nerve roots are better evaluated on MRI, which can be obtained for further evaluation as clinically indicated. The abdominal aorta is normal in caliber with moderate to severe atherosclerotic calcification. Heterogeneous masses enlarge the uterus, some with calcifications. These most likely represent fibroids. IMPRESSION: No evidence of acute fracture or traumatic malalignment. Multilevel degenerative changes , more pronounced in the lower lumbar spine. Atherosclerotic vascular calcifications. Fibroid uterus. The CT scanner at [facility] is accredited by the [employer] and the scans are performed using protocols designed to limit radiation exposure to as low as reasonably achievable to attain images of sufficient resolution adequate for diagnostic evaluation.
[2020-01-18] MEDS ORDERED: cefTRIAXone 1 GM in NS 55 ML IVPB ONE (16:00)
[2020-01-18 17:10] VITALS: BP 110/74
[2020-01-18] MEDS ORDERED: DiphenhydrAMINE 25mg Tab ORAL PRN (19:00)
[2020-01-18] MEDS ORDERED: traMADol 50mg tab ORAL PRN (19:00)
[2020-01-18 19:13] VITALS: BP 111/75
[2020-01-18 20:25] VITALS: BP 145/92
[2020-01-18] MEDS: NovoLOG Insulin Flexpen SUBQ SCH (21:00)
[2020-01-18] MEDS: Docusate 100mg cap ORAL SCH (21:46)
[2020-01-18] MEDS: HYDROcodone/Acetamin 5/325 tab ORAL PRN (21:47)
[2020-01-19] VITALS: BP 132/74
[2020-01-19 04:00] VITALS: BP 134/80
[2020-01-19] MEDS: NovoLOG Insulin Flexpen SUBQ SCH ×4 (05:35→20:55)
[2020-01-19 06:33] LABS: BASOPHILS % (AUTO) 0.7 % (0.0-2.0); EOSINOPHILS % (AUTO) 3.1 % (0.0-3.0); HEMATOCRIT 27.5 % (37.0-47.0); HEMOGLOBIN 9.1 G/DL (12.0-16.0); LYMPHOCYTES % (AUTO) 32.2 % (20.0-45.0); MEAN CORPUSCULAR VOLUME 90 FL (80-99); MONOCYTES % (AUTO) 15.6 % (1.0-10.0); NEUTROPHILS % (AUTO) 48.5 % (45.0-75.0); PLATELET COUNT 106 K/UL (150-450); RED BLOOD COUNT 3.05 M/UL (4.20-5.40); RED CELL DISTRIBUTION WIDTH 17.9 % (11.6-14.8); WHITE BLOOD COUNT 6.5 K/UL (4.8-10.8)
[2020-01-19 06:45] LABS: ANION GAP 12 mmol/L (5-15); BLOOD UREA NITROGEN 17 mg/dL (7-18); CALCIUM 8.6 MG/DL (8.5-10.1); CARBON DIOXIDE 24 MMOL/L (21-32); CHLORIDE 102 MMOL/L (98-107); CREATININE 1.8 MG/DL (0.55-1.30); POTASSIUM 3.6 MMOL/L (3.5-5.1); SODIUM 138 MMOL/L (136-145)
[2020-01-19 08:00] VITALS: BP 131/85
[2020-01-19] MEDS: Docusate 100mg cap ORAL SCH ×2 (09:00→19:49)
[2020-01-19] MEDS: Heparin 5000 units/ml inj SUBQ SCH ×2 (09:00→19:50)
[2020-01-19 12:00] VITALS: BP 123/73
--- NOTE | 2020-01-19 13:45 | Consultation ---
History of Present Illness General Date patient seen: January 19, 2020 Chief Complaint: Back Pain-No Injury Reason for Consultation: CANDELARIA Present Illness HPI 69-year-old female presents for evaluation of low back pain. No reported injury today however the patient had a fall from standing in the shower approximately 2-3 week ago. She had a head injury and loss of consciousness. CT scan of the head at that time was interpreted as unremarkable. She reports persistent low-grade headaches but no change in these headaches over the past few weeks. She does note worsening lower back pain over the past 2 days as well as weakness in the lower extremities. Denies numbness or tingling. Denies urinary retention, fecal incontinence. No trauma or injury reported today. Notes pain in the middle of the back and nonradiating. In ED she was found to have elevated creatinine of 1.8 along with pyuria and moderate bacteria on UA. Patient was started in ceftriaxone Allergies: Coded Allergies: No Known Allergies (Unverified , 05/07/19) Medication History Scheduled Aspirin* (Aspirin*), 81 MG ORAL DAILY, (Reported) Benazepril Hcl* (Benazepril Hcl*), Unknown Dose ORAL DAILY, (Reported) Metformin Hcl* (Metformin Hcl*), 500 MG ORAL DAILY, (Reported) Discontinued Medications Hydrocortisone (Anucort-Hc), 25 MG RECTAL TWICE A DAY Discontinued Reason: Therapy completed Pantoprazole* (Pantoprazole*), 40 MG ORAL EVERY 12 HOURS Discontinued Reason: Therapy completed Walker (Ultra-Light Rollator), EACH [facility], (DME) Discontinued Reason: Therapy completed Zolpidem Tartrate* (Ambien*), Unknown Dose ORAL BEDTIME PRN for Insomnia, ( Reported) Discontinued Reason: MD discontinued med Patient History Healthcare decision maker Resuscitation status Advanced Directive on File Review of Systems All Other Systems: negative except mentioned in HPI Physical Exam General Appearance: WD/WN, no apparent distress Lines, tubes and drains: peripheral HEENT: normocephalic, atraumatic Neck: non-tender Respiratory/Chest: chest wall non-tender, lungs clear, normal breath sounds Cardiovascular/Chest: normal peripheral pulses Extremities: non-pitting Neurologic: alert, oriented x 3 Last 24 Hour Vital Signs Date Time Temp Pulse Resp B/P (MAP) Pulse Ox O2 Delivery O2 Flow Rate FiO2 01/19/20 12:00 98.6 67 19 123/73 (90) 97 5/19/20 09:00 Room Air 01/19/20 08:00 98.6 89 20 131/85 (100) 98 01/19/20 04:00 97.7 76 18 134/80 (98) 98 01/19/20 00:00 97.5 80 18 132/74 (93) 99 01/18/20 21:04 Room Air 01/18/20 20:30 97.8 93 16 139/89 92 Room Air 01/18/20 20:25 97.8 98 19 145/92 (109) 92 01/18/20 19:13 98.2 76 16 111/75 99 Room Air 01/18/20 17:10 98.2 81 20 110/74 99 Room Air 01/18/20 14:45 98.2 01/18/20 13:58 98.2 20 103/71 99 Room Air Intake and Output 01/18/20 01/19/20 19:00 07:00 Intake Total 855 ml Balance 855 ml Intake Oral 480 ml IV Total 375 ml # Voids 3 Laboratory Tests Test 01/18/20 14:10 01/18/20 15:10 01/19/20 05:20 White Blood Count 6.6 K/UL (4.8-10.8) 6.5 K/UL (4.8-10.8) Red Blood Count 2.98 M/UL (4.20-5.40) L 3.05 M/UL (4.20-5.40) L Hemoglobin 8.9 G/DL (12.0-16.0) L 9.1 G/DL (12.0-16.0) L Hematocrit 26.5 % (37.0-47.0) L 27.5 % (37.0-47.0) L Mean Corpuscular Volume 89 FL (80-99) 90 FL (80-99) Mean Corpuscular Hemoglobin 29.9 PG (27.0-31.0) 29.9 PG (27.0-31.0) Mean Corpuscular Hemoglobin Concent 33.6 G/DL (32.0-36.0) 33.2 G/DL (32.0-36.0) Red Cell Distribution Width 17.3 % (11.6-14.8) H 17.9 % (11.6-14.8) H Platelet Count 85 K/UL (150-450) L 106 K/UL (150-450) L Mean Platelet Volume 6.6 FL (6.5-10.1) 6.8 FL (6.5-10.1) Neutrophils (%) (Auto) % (45.0-75.0) 48.5 % (45.0-75.0) Lymphocytes (%) (Auto) % (20.0-45.0) 32.2 % (20.0-45.0) Monocytes (%) (Auto) % (1.0-10.0) 15.6 % (1.0-10.0) H Eosinophils (%) (Auto) % (0.0-3.0) 3.1 % (0.0-3.0) H Basophils (%) (Auto) % (0.0-2.0) 0.7 % (0.0-2.0) Differential Total Cells Counted 100 Neutrophils % (Manual) 73 % (45-75) Lymphocytes % (Manual) 17 % (20-45) L Monocytes % (Manual) 8 % (1-10) Eosinophils % (Manual) 2 % (0-3) Basophils % (Manual) 0 % (0-2) Band Neutrophils 0 % (0-8) Platelet Estimate Decreased L Platelet Morphology Normal Polychromasia 1+ Anisocytosis 1+ Sodium Level 139 MMOL/L (136-145) 138 MMOL/L (136-145) Potassium Level 3.1 MMOL/L (3.5-5.1) L 3.6 MMOL/L (3.5-5.1) Chloride Level 103 MMOL/L (98-107) 102 MMOL/L (98-107) Carbon Dioxide Level 23 MMOL/L (21-32) 24 MMOL/L (21-32) Anion Gap 13 mmol/L (5-15) 12 mmol/L (5-15) Blood Urea Nitrogen 15 mg/dL (7-18) 17 mg/dL (7-18) Creatinine 1.8 MG/DL (0.55-1.30) H 1.8 MG/DL (0.55-1.30) H Estimat Glomerular Filtration Rate 33.9 mL/min (>60) 33.9 mL/min (>60) Glucose Level 112 MG/DL (74-106) H 104 MG/DL (74-106) Calcium Level 8.7 MG/DL (8.5-10.1) 8.6 MG/DL (8.5-10.1) Total Bilirubin 0.8 MG/DL (0.2-1.0) Aspartate Amino Transf (AST/SGOT) 35 U/L (15-37) Alanine Aminotransferase (ALT/SGPT) 29 U/L (12-78) Alkaline Phosphatase 113 U/L (46-116) Total Protein 6.6 G/DL (6.4-8.2) Albumin 3.0 G/DL (3.4-5.0) L Globulin 3.6 g/dL Albumin/Globulin Ratio 0.8 (1.0-2.7) L Urine Color Yellow Urine Appearance Slightly cloudy Urine pH 5 (4.5-8.0) Urine Specific [place] 1.015 (1.005-1.035) Urine Protein 2+ (NEGATIVE) H Urine Glucose (UA) Negative (NEGATIVE) Urine Ketones Negative (NEGATIVE) Urine Blood 1+ (NEGATIVE) H Urine Nitrite Negative (NEGATIVE) Urine Bilirubin 1+ (NEGATIVE) H Urine Ictotest Negative (NEGATIVE) Urine Urobilinogen 1 MG/DL (0.0-1.0) H Urine Leukocyte Esterase 1+ (NEGATIVE) H Urine RBC 2-4 /HPF (0 - 2) H Urine WBC 20-30 /HPF (0 - 2) H Urine Squamous Epithelial Cells Few /LPF (NONE/OCC) Urine Bacteria Moderate /HPF (NONE) H Urine Opiates Screen Negative (NEGATIVE) Urine Barbiturates Screen Negative (NEGATIVE) Phencyclidine (PCP) Screen Negative (NEGATIVE) Urine Amphetamines Screen Negative (NEGATIVE) Urine Benzodiazepines Screen Positive (NEGATIVE) H Urine Cocaine Screen Negative (NEGATIVE) Urine Marijuana (THC) Screen Negative (NEGATIVE) Urine Ethyl Alcohol Pending Height (Feet): 5 Height (Inches): 4.00 Weight (Pounds): 150 Medications Current Medications Medications (Trade) Dose Ordered Sig/Lucas Route PRN Reason Start Time Stop Time Status Last Admin Dose Admin Acetaminophen (Tylenol) 650 mg Q4H PRN ORAL Mild Pain (Pain Scale 1-3) 01/18/20 19:00 02/17/20 18:59 Acetaminophen/ Hydrocodone Bitart ([place] 5/325) 1 tab Q6H PRN ORAL Severe Pain (Pain Scale 7-10) 01/18/20 19:00 01/25/20 18:59 01/18/20 21:47 Artificial Tears (Akwa-Tears) 2 drop Q2H PRN BOTH EYES Dry Eyes 01/19/20 10:45 02/18/20 10:44 01/19/20 12:03 Ceftriaxone Sodium 1 gm/ Dextrose 55 ml @ 110 mls/hr Q24H IVPB 01/19/20 16:00 01/26/20 15:59 Dextrose (Dextrose 50%) 25 ml Q30M PRN IV Hypoglycemia 01/18/20 19:00 04/17/20 18:59 Dextrose (Dextrose 50%) 50 ml Q30M PRN IV Hypoglycemia 01/18/20 19:00 04/17/20 18:59 Diphenhydramine HCl (Benadryl) 25 mg Q6H PRN ORAL Itching/Pruritis 01/18/20 19:00 02/17/20 18:59 Docusate Sodium (Colace) 100 mg EVERY 12 HOURS ORAL 01/18/20 21:00 02/17/20 20:59 01/18/20 21:46 Heparin Sodium (Porcine) (Heparin 5000 units/ml) 5,000 units EVERY 12 HOURS SUBQ 01/19/20 09:00 03/04/20 08:59 Insulin Aspart (NovoLOG) BEFORE MEALS AND HS SUBQ 01/18/20 21:00 04/17/20 20:59 Ondansetron HCl (Zofran) 4 mg Q6H PRN IVP Nausea & Vomiting 01/18/20 19:00 02/17/20 18:59 Sodium Chloride 1,000 ml @ 75 mls/hr [id number] IVLG 01/18/20 19:51 02/17/20 19:50 01/18/20 21:46 Tramadol HCl (Ultram) 50 mg Q6H PRN ORAL Moderate Pain (Pain Scale 4-6) 01/18/20 19:00 01/25/20 18:59 01/19/20 02:07 Assessment/Plan Diagnosis [place]: #CANDELARIA likely pre-renal azotemia in the setting of UTI #Low back pain #UTI #alcohol abuse disorder #DM #anemia - continue hydration - urine chem - continue ceftriaxone - follow urine cx - monitor UOP - daily weights - avoid nephrotoxins - BG control - monitor hemoglobin - monitor mag, phos, BMP daily Time spent 65 minutes, greater than 50% on care coordination and counseling Virginia Pitt M.D. January 19, 2020 13:45
--- NOTE | 2020-01-19 14:02 | History and Physical ---
History of Present Illness General Date patient seen: January 19, 2020 Time patient seen: 08:00 Reason for Hospitalization: Back Pain-No Injury Present Illness HPI 69-year-old female presents for evaluation of low back pain. No reported injury today however the patient had a fall from standing in the shower approximately 2-3 week ago. She had a head injury and loss of consciousness. CT scan of the head at that time was interpreted as unremarkable. She reports persistent low-grade headaches but no change in these headaches over the past few weeks. She does note worsening lower back pain over the past 2 days as well as weakness in the lower extremities. Denies numbness or tingling. Denies urinary retention, fecal incontinence. No trauma or injury reported today. Notes pain in the middle of the back and nonradiating. In ED she was found to have elevated creatinine of 1.8 along with pyuria and moderate bacteria on UA. Patient was started in ceftriaxone and referred for medical admission. Family Hx: No premature CAD Social Hx: History of alcohol abuse Allergies: Coded Allergies: No Known Allergies (Unverified , 05/07/19) COVID-19 Screening Contact w/high risk pt: No Recent Travel to affected area: No Experienced COVID-19 symptoms?: No COVID-19 symptoms experienced: Cough Medication History Scheduled Aspirin* (Aspirin*), 81 MG ORAL DAILY, (Reported) Benazepril Hcl* (Benazepril Hcl*), Unknown Dose ORAL DAILY, (Reported) Metformin Hcl* (Metformin Hcl*), 500 MG ORAL DAILY, (Reported) Discontinued Medications Hydrocortisone (Anucort-Hc), 25 MG RECTAL TWICE A DAY Discontinued Reason: Therapy completed Pantoprazole* (Pantoprazole*), 40 MG ORAL EVERY 12 HOURS Discontinued Reason: Therapy completed Walker (Ultra-Light Rollator), EACH [facility], (DME) Discontinued Reason: Therapy completed Zolpidem Tartrate* (Ambien*), Unknown Dose ORAL BEDTIME PRN for Insomnia, ( Reported) Discontinued Reason: MD discontinued med Patient History History Provided By: Patient, Medical Record Healthcare decision maker Resuscitation status Advanced Directive on File Review of Systems Constitutional: Denies: chills, fever Respiratory: Denies: cough Cardiovascular: Denies: chest pain, edema, palpitations Gastrointestinal: Denies: abdominal pain Musculoskeletal: Reports: back pain; Denies: joint pain, joint swelling, muscle pain, muscle stiffness Skin: Denies: rash Neurological: Reports: headache, tremors; Denies: numbness, paresthesia, seizure, tingling Physical Exam General Appearance: no apparent distress, alert HEENT: atraumatic, anicteric Neck: normal alignment, supple Respiratory/Chest: lungs clear, normal breath sounds, no respiratory distress, no accessory muscle use Cardiovascular/Chest: normal rate, regular rhythm Abdomen: non tender, soft Extremities: non-tender, normal inspection 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, no motor/sensory deficits, alert, oriented x 3 Last 24 Hour Vital Signs Date Time Temp Pulse Resp B/P (MAP) Pulse Ox O2 Delivery O2 Flow Rate FiO2 01/19/20 12:00 98.6 67 19 123/73 (90) 97 01/19/20 09:00 Room Air 01/19/20 08:00 98.6 89 20 131/85 (100) 98 01/19/20 04:00 97.7 76 18 134/80 (98) 98 01/19/20 00:00 97.5 80 18 132/74 (93) 99 01/18/20 21:04 Room Air 01/18/20 20:30 97.8 93 16 139/89 92 Room Air 01/18/20 20:25 97.8 98 19 145/92 (109) 92 01/18/20 19:13 98.2 76 16 111/75 99 Room Air 01/18/20 17:10 98.2 81 20 110/74 99 Room Air 01/18/20 14:45 98.2 Intake and Output 01/18/20 01/19/20 19:00 07:00 Intake Total 855 ml Balance 855 ml Intake Oral 480 ml IV Total 375 ml # Voids 3 Laboratory Tests Test 01/18/20 14:10 01/18/20 15:10 01/19/20 05:20 White Blood Count 6.6 K/UL (4.8-10.8) 6.5 K/UL (4.8-10.8) Red Blood Count 2.98 M/UL (4.20-5.40) L 3.05 M/UL (4.20-5.40) L Hemoglobin 8.9 G/DL (12.0-16.0) L 9.1 G/DL (12.0-16.0) L Hematocrit 26.5 % (37.0-47.0) L 27.5 % (37.0-47.0) L Mean Corpuscular Volume 89 FL (80-99) 90 FL (80-99) Mean Corpuscular Hemoglobin 29.9 PG (27.0-31.0) 29.9 PG (27.0-31.0) Mean Corpuscular Hemoglobin Concent 33.6 G/DL (32.0-36.0) 33.2 G/DL (32.0-36.0) Red Cell Distribution Width 17.3 % (11.6-14.8) H 17.9 % (11.6-14.8) H Platelet Count 85 K/UL (150-450) L 106 K/UL (150-450) L Mean Platelet Volume 6.6 FL (6.5-10.1) 6.8 FL (6.5-10.1) Neutrophils (%) (Auto) % (45.0-75.0) 48.5 % (45.0-75.0) Lymphocytes (%) (Auto) % (20.0-45.0) 32.2 % (20.0-45.0) Monocytes (%) (Auto) % (1.0-10.0) 15.6 % (1.0-10.0) H Eosinophils (%) (Auto) % (0.0-3.0) 3.1 % (0.0-3.0) H Basophils (%) (Auto) % (0.0-2.0) 0.7 % (0.0-2.0) Differential Total Cells Counted 100 Neutrophils % (Manual) 73 % (45-75) Lymphocytes % (Manual) 17 % (20-45) L Monocytes % (Manual) 8 % (1-10) Eosinophils % (Manual) 2 % (0-3) Basophils % (Manual) 0 % (0-2) Band Neutrophils 0 % (0-8) Platelet Estimate Decreased L Platelet Morphology Normal Polychromasia 1+ Anisocytosis 1+ Sodium Level 139 MMOL/L (136-145) 138 MMOL/L (136-145) Potassium Level 3.1 MMOL/L (3.5-5.1) L 3.6 MMOL/L (3.5-5.1) Chloride Level 103 MMOL/L (98-107) 102 MMOL/L (98-107) Carbon Dioxide Level 23 MMOL/L (21-32) 24 MMOL/L (21-32) Anion Gap 13 mmol/L (5-15) 12 mmol/L (5-15) Blood Urea Nitrogen 15 mg/dL (7-18) 17 mg/dL (7-18) Creatinine 1.8 MG/DL (0.55-1.30) H 1.8 MG/DL (0.55-1.30) H Estimat Glomerular Filtration Rate 33.9 mL/min (>60) 33.9 mL/min (>60) Glucose Level 112 MG/DL (74-106) H 104 MG/DL (74-106) Calcium Level 8.7 MG/DL (8.5-10.1) 8.6 MG/DL (8.5-10.1) Total Bilirubin 0.8 MG/DL (0.2-1.0) Aspartate Amino Transf (AST/SGOT) 35 U/L (15-37) Alanine Aminotransferase (ALT/SGPT) 29 U/L (12-78) Alkaline Phosphatase 113 U/L (46-116) Total Protein 6.6 G/DL (6.4-8.2) Albumin 3.0 G/DL (3.4-5.0) L Globulin 3.6 g/dL Albumin/Globulin Ratio 0.8 (1.0-2.7) L Urine Color Yellow Urine Appearance Slightly cloudy Urine pH 5 (4.5-8.0) Urine Specific [place] 1.015 (1.005-1.035) Urine Protein 2+ (NEGATIVE) H Urine Glucose (UA) Negative (NEGATIVE) Urine Ketones Negative (NEGATIVE) Urine Blood 1+ (NEGATIVE) H Urine Nitrite Negative (NEGATIVE) Urine Bilirubin 1+ (NEGATIVE) H Urine Ictotest Negative (NEGATIVE) Urine Urobilinogen 1 MG/DL (0.0-1.0) H Urine Leukocyte Esterase 1+ (NEGATIVE) H Urine RBC 2-4 /HPF (0 - 2) H Urine WBC 20-30 /HPF (0 - 2) H Urine Squamous Epithelial Cells Few /LPF (NONE/OCC) Urine Bacteria Moderate /HPF (NONE) H Urine Opiates Screen Negative (NEGATIVE) Urine Barbiturates Screen Negative (NEGATIVE) Phencyclidine (PCP) Screen Negative (NEGATIVE) Urine Amphetamines Screen Negative (NEGATIVE) Urine Benzodiazepines Screen Positive (NEGATIVE) H Urine Cocaine Screen Negative (NEGATIVE) Urine Marijuana (THC) Screen Negative (NEGATIVE) Urine Ethyl Alcohol Pending Height (Feet): 5 Height (Inches): 4.00 Weight (Pounds): 150 Medications Current Medications Medications (Trade) Dose Ordered Sig/Lucas Route PRN Reason Start Time Stop Time Status Last Admin Dose Admin Acetaminophen (Tylenol) 650 mg Q4H PRN ORAL Mild Pain (Pain Scale 1-3) 01/18/20 19:00 02/17/20 18:59 Acetaminophen/ Hydrocodone Bitart ([place] 5/325) 1 tab Q6H PRN ORAL Severe Pain (Pain Scale 7-10) 01/18/20 19:00 01/25/20 18:59 01/18/20 21:47 Artificial Tears (Akwa-Tears) 2 drop Q2H PRN BOTH EYES Dry Eyes 01/19/20 10:45 02/18/20 10:44 01/19/20 12:03 Ceftriaxone Sodium 1 gm/ Dextrose 55 ml @ 110 mls/hr Q24H IVPB 01/19/20 16:00 01/26/20 15:59 Dextrose (Dextrose 50%) 25 ml Q30M PRN IV Hypoglycemia 01/18/20 19:00 04/17/20 18:59 Dextrose (Dextrose 50%) 50 ml Q30M PRN IV Hypoglycemia 01/18/20 19:00 04/17/20 18:59 Diphenhydramine HCl (Benadryl) 25 mg Q6H PRN ORAL Itching/Pruritis 01/18/20 19:00 02/17/20 18:59 Docusate Sodium (Colace) 100 mg EVERY 12 HOURS ORAL 01/18/20 21:00 02/17/20 20:59 01/18/20 21:46 Heparin Sodium (Porcine) (Heparin 5000 units/ml) 5,000 units EVERY 12 HOURS SUBQ 01/19/20 09:00 03/04/20 08:59 Insulin Aspart (NovoLOG) BEFORE MEALS AND HS SUBQ 01/18/20 21:00 04/17/20 20:59 Ondansetron HCl (Zofran) 4 mg Q6H PRN IVP Nausea & Vomiting 01/18/20 19:00 02/17/20 18:59 Sodium Chloride 1,000 ml @ 75 mls/hr [id number] IVLG 01/18/20 19:51 02/17/20 19:50 01/18/20 21:46 Tramadol HCl (Ultram) 50 mg Q6H PRN ORAL Moderate Pain (Pain Scale 4-6) 01/18/20 19:00 01/25/20 18:59 01/19/20 02:07 Assessment/Plan Assessment/Plan: 69 year old woman with history of HTN, DM, alcoholism who presented to ED with back pain and frequent falls. #Back pain, frequent falls -admit to inpatient -fall precautions -PT/OT -Neurology eval #Pyuria, bacteruria -continue ceftriaxone -follow up microbiology data #CANDELARIA -continue IV hydration -monitor BMP daily -Renal consult #Essential hypertension, currently normotensive -Patient reportedly on benazepril as outpatient -Cont to monitor pressures for now #ETOH dependance #Anxiety -Monitor for evidence of withdrawal -Ativan prn -Thiamine, Folate -Monitor Mg and K levels -Psych consulted #Non-insulin dependant type II DM: -Insulin SS -Diabetic diet. #Normocytic Anemia -No signs of acute bleed. -Continue to monitor. I spent 70 minutes on this patient's case, and 36 minutes was dedicated to counseling and/or care coordination with RN, consulting MDs I spent an additional 35 minutes on review of medical records including prior hospital records, consult notes, progress notes, procedures, imaging, labs, hemodynamics, and other clinical documentation. Jian Morrison MD January 19, 2020 14:02
[2020-01-19 16:00] VITALS: BP 117/79
[2020-01-19] MEDS ORDERED: cefTRIAXone 1 GM in D5W 55 ML IVPB SCH (16:00)
[2020-01-19] MEDS: Thiamine 100mg tab ORAL SCH (16:35)
[2020-01-19 20:00] VITALS: BP 104/65
[2020-01-19] MEDS: HYDROcodone/Acetamin 5/325 tab ORAL PRN (20:38)
[2020-01-19] MEDS: LORazepam 1mg tab ORAL PRN (21:25)
[2020-01-20] VITALS: BP 119/67
[2020-01-20 04:00] VITALS: BP 116/68
[2020-01-20] MEDS: NovoLOG Insulin Flexpen SUBQ SCH ×4 (06:30→20:35)
[2020-01-20 06:34] LABS: % IRON SATURATION 9 % (15-50); IRON 18 ug/dL (50-175); TOTAL IRON BINDING CAPACITY 210 ug/dL (250-450)
[2020-01-20 06:42] LABS: ANION GAP 10 mmol/L (5-15); BLOOD UREA NITROGEN 18 mg/dL (7-18); CALCIUM 8.2 MG/DL (8.5-10.1); CARBON DIOXIDE 24 MMOL/L (21-32); CHLORIDE 107 MMOL/L (98-107); CREATININE 1.5 MG/DL (0.55-1.30); POTASSIUM 3.7 MMOL/L (3.5-5.1); SODIUM 141 MMOL/L (136-145)
[2020-01-20 07:35] LABS: APPEARANCE,URINE CLEAR; BILIRUBIN, URINE NEGATIVE (NEGATIVE); GLUCOSE, URINE (UA) NEGATIVE (NEGATIVE); KETONES,URINE NEGATIVE (NEGATIVE); LEUKOCYTE ESTERASE ,URINE NEGATIVE (NEGATIVE); NITRITE,URINE NEGATIVE (NEGATIVE); PH,URINE 5 (4.5-8.0); PROTEIN,URINE 1+ (NEGATIVE); UROBILINOGEN,URINE NORMAL MG/DL (0.0-1.0)
[2020-01-20 07:39] LABS: COLOR,URINE YELLOW
[2020-01-20 08:00] VITALS: BP 128/75
[2020-01-20] MEDS: Thiamine 100mg tab ORAL SCH (08:30)
[2020-01-20] MEDS: Docusate 100mg cap ORAL SCH ×2 (08:31→20:35)
[2020-01-20] MEDS: Heparin 5000 units/ml inj SUBQ SCH ×2 (08:31→20:35)
--- NOTE | 2020-01-20 10:34 | Nephrology Progress Note ---
Assessment/Plan Plan #CANDELARIA likely pre-renal azotemia in the setting of UTI #Low back pain #UTI #alcohol abuse disorder #DM #anemia - continue hydration - replete mag - IV iron - DC ceftriaxone - monitor UOP - daily weights - avoid nephrotoxins - BG control - monitor hemoglobin - monitor mag, phos, BMP daily Time spent 65 minutes, greater than 50% on care coordination and counseling Subjective ROS Limited/Unobtainable: No Constitutional: Denies: no symptoms, chills, diaphoresis, fever, malaise, weakness, other HEENT: Denies: no symptoms, eye pain, blurred vision, tearing, double vision, ear pain, ear discharge, nose pain, nose congestion, throat pain, throat swelling, mouth pain, mouth swelling, other Genitourinary: Denies: no symptoms, burning, discharge, frequency, flank pain, hematuria, incontinence, pain, urgency, other Neurologic/Psychiatric: Denies: no symptoms, anxiety, depressed, emotional problems, headache, numbness, paresthesia, pre-existing deficit, seizure, tingling, tremors, weakness, other Subjective Cr downtrending mag low iron def noted Objective Objective Last 24 Hour Vital Signs Date Time Temp Pulse Resp B/P (MAP) Pulse Ox O2 Delivery O2 Flow Rate FiO2 01/20/20 09:00 Room Air 01/20/20 08:00 97.5 91 17 128/75 (92) 100 01/20/20 04:00 98.3 74 16 116/68 (84) 97 01/20/20 00:00 97.8 74 16 119/67 (84) 97 01/19/20 21:18 Room Air 01/19/20 21:08 97.1 01/19/20 20:00 97.8 92 16 104/65 (78) 99 01/19/20 16:00 97.1 77 19 117/79 (92) 97 01/19/20 12:00 98.6 67 19 123/73 (90) 97 Intake and Output 01/19/20 01/20/20 19:00 07:00 Intake Total 1200 ml 275 ml Balance 1200 ml 275 ml Intake Oral 1200 ml 200 ml IV Total 75 ml # Voids 4 2 Laboratory Tests 01/20/20 01:00: Urine Color Yellow, Urine Appearance Clear, Urine pH 5, Urine Specific [place] 1.015, Urine Protein 1+H, Urine Glucose (UA) Negative, Urine Ketones Negative, Urine Blood Negative, Urine Nitrite Negative, Urine Bilirubin Negative, Urine Urobilinogen Normal, Urine Leukocyte Esterase Negative, Urine RBC 0, Urine WBC 2 -4, Urine Squamous Epithelial Cells Few, Urine Bacteria Few, Urine Random Total Protein 37H, Urine Random Sodium 52, Urine Creatinine 150.5H 01/20/20 04:50: Sodium Level 141, Potassium Level 3.7, Chloride Level 107, Carbon Dioxide Level 24, Anion Gap 10, Blood Urea Nitrogen 18, Creatinine 1.5H, Estimat Glomerular Filtration Rate 42.1, Glucose Level 83, Calcium Level 8.2L, Phosphorus Level 4.7 , Magnesium Level 1.2L, Iron Level 18L, Total Iron Binding Capacity 210L, Percent Iron Saturation 9L, Unsaturated Iron Binding 192, Ferritin 63 Height (Feet): 5 Height (Inches): 4.00 Weight (Pounds): 147 Objective General Appearance: WD/WN, no apparent distress Lines, tubes and drains: peripheral HEENT: normocephalic, atraumatic Neck: non-tender Respiratory/Chest: chest wall non-tender, lungs clear, normal breath sounds Cardiovascular/Chest: normal peripheral pulses Extremities: non-pitting Neurologic: alert, oriented x 3 Virginia Pitt M.D. January 20, 2020 10:34
[2020-01-20 12:00] VITALS: BP 140/80
[2020-01-20] MEDS: HYDROcodone/Acetamin 5/325 tab ORAL PRN ×2 (14:34→20:34)
--- NOTE | 2020-01-20 14:42 | General Progress Note ---
Assessment/Plan Assessment/Plan: 69 year old woman with history of HTN, DM, alcoholism who presented to ED with back pain and frequent falls. #Back pain, frequent falls -continue inpatient care -fall precautions -PT enzo appreciated, spoke with nurse case management about SNF referrals. -Neurology eval appreciated #Pyuria, bacteruria -Culture negative -stop ceftriaxone and monitor #CANDELARIA, improved -continue IV hydration -monitor BMP daily -Renal consult appreciated #Essential hypertension, currently normotensive -Patient reportedly on benazepril as outpatient -Cont to monitor pressures for now #ETOH dependance #Anxiety -Monitor for evidence of withdrawal -Ativan prn #Non-insulin dependant type II DM: -Insulin SS -Diabetic diet. #Normocytic Anemia -No signs of acute bleed. -Continue to monitor. I spent 35 minutes on this patient's case, and 18 minutes was dedicated to counseling and/or care coordination with RN, consulting MDs Subjective Date patient seen: January 20, 2020 Time patient seen: 14:37 ROS Limited/Unobtainable: No Constitutional: Denies: chills, fever Cardiovascular: Denies: chest pain Respiratory: Denies: cough Gastrointestinal/Abdominal: Denies: abdominal pain Neurologic/Psychiatric: Denies: anxiety, tremors, weakness Endocrine: Denies: excessive sweating Allergies: Coded Allergies: No Known Allergies (Unverified , 05/07/19) Subjective Follow up for gait instability, CANDELARIA, alcohol abuse. No current complaints. Seen by PT, will need nursing facility/. Objective Last 24 Hour Vital Signs Date Time Temp Pulse Resp B/P (MAP) Pulse Ox O2 Delivery O2 Flow Rate FiO2 01/20/20 12:00 98.1 79 20 140/80 (100) 100 01/20/20 09:00 Room Air 01/20/20 08:00 97.5 91 17 128/75 (92) 100 01/20/20 04:00 98.3 74 16 116/68 (84) 97 01/20/20 00:00 97.8 74 16 119/67 (84) 97 01/19/20 21:18 Room Air 01/19/20 21:08 97.1 01/19/20 20:00 97.8 92 16 104/65 (78) 99 01/19/20 16:00 97.1 77 19 117/79 (92) 97 Intake and Output 01/19/20 01/20/20 19:00 07:00 Intake Total 1200 ml 275 ml Balance 1200 ml 275 ml Intake Oral 1200 ml 200 ml IV Total 75 ml # Voids 4 2 Laboratory Tests 01/20/20 01:00: Urine Color Yellow, Urine Appearance Clear, Urine pH 5, Urine Specific [place] 1.015, Urine Protein 1+H, Urine Glucose (UA) Negative, Urine Ketones Negative, Urine Blood Negative, Urine Nitrite Negative, Urine Bilirubin Negative, Urine Urobilinogen Normal, Urine Leukocyte Esterase Negative, Urine RBC 0, Urine WBC 2 -4, Urine Squamous Epithelial Cells Few, Urine Bacteria Few, Urine Random Total Protein 37H, Urine Random Sodium 52, Urine Creatinine 150.5H 01/20/20 04:50: Sodium Level 141, Potassium Level 3.7, Chloride Level 107, Carbon Dioxide Level 24, Anion Gap 10, Blood Urea Nitrogen 18, Creatinine 1.5H, Estimat Glomerular Filtration Rate 42.1, Glucose Level 83, Calcium Level 8.2L, Phosphorus Level 4.7 , Magnesium Level 1.2L, Iron Level 18L, Total Iron Binding Capacity 210L, Percent Iron Saturation 9L, Unsaturated Iron Binding 192, Ferritin 63 Height (Feet): 5 Height (Inches): 4.00 Weight (Pounds): 147 General Appearance: no apparent distress, alert Neck: normal alignment, supple Cardiovascular: normal rate, regular rhythm Respiratory/Chest: lungs clear, normal breath sounds Abdomen: non tender, soft Jian Morrison MD January 20, 2020 14:42
[2020-01-20 16:00] VITALS: BP 145/86
[2020-01-20 20:00] VITALS: BP 141/81
[2020-01-20] MEDS ORDERED: Iron Sucrose 100 MG in NS 55 ML IV SCH (21:00)
[2020-01-20] MEDS ORDERED: Tubing IV Secondary IV ONE (21:04)
[2020-01-20] MEDS: LORazepam 1mg tab ORAL PRN (21:15)
--- NOTE | 2020-01-20 23:30 | Consultation ---
DATE OF CONSULTATION: 01/20/2020 CONSULTING PHYSICIAN: Isael Guerra MD. HISTORY OF PRESENT ILLNESS: The patient is a 69-year-old female with a history of alcohol dependence who has been admitted to the hospital due to acute renal injury. Patient is forgetful, anxious, episodes of agitation, complaining of forgetfulness with insomnia. The patient has no suicidal or homicidal ideation. anxiety; however, she appears very calm. No tremor was noted. She was able to provide history. The nurse was also present in the room who stated that the patient has been calm all day. PAST PSYCHIATRIC HISTORY: Anxiety disorder, on no psychotropic medications. PAST MEDICAL HISTORY: Significant for back pain, acute renal failure, hypertension, diabetes mellitus, anemia. ALLERGIES: None drug allergies. SUBSTANCE ABUSE HISTORY: No known history of illicit drug use or alcohol. MENTAL STATUS EXAMINATION: Patient is alert, oriented times self, place, situation, and date. Mood is anxious. Affect is constricted, congruent with mood. Thought process is concrete. Thought content, no suicidal or homicidal ideation. Cognition is intact. Insight and judgment is fair. ASSESSMENT: Formoso I Alcohol dependence. Anxiety disorder. Formoso II Deferred. Formoso III As above. Formoso IV Low. Formoso V 20. PLAN: 1. Start Ativan p.r.n. for drinking vodka 3 glasses per day. 2. Prozac 20 mg in the morning. 3. Remeron 7.5 at bedtime for insomnia. 4. Thiamine. 5. Folate. 6. Discussed with the nurse. Isael Guerra M.D. DR: CONNER JOB#: [id number] CC:
[2020-01-21 00:27] VITALS: BP 136/77
[2020-01-21 04:28] VITALS: BP 153/83
[2020-01-21 05:34] LABS: HEMATOCRIT 24.8 % (37.0-47.0); HEMOGLOBIN 8.1 G/DL (12.0-16.0); MEAN CORPUSCULAR VOLUME 91 FL (80-99); PLATELET COUNT 160 K/UL (150-450); RED BLOOD COUNT 2.71 M/UL (4.20-5.40); RED CELL DISTRIBUTION WIDTH 17.7 % (11.6-14.8); WHITE BLOOD COUNT 4.9 K/UL (4.8-10.8)
[2020-01-21] MEDS: NovoLOG Insulin Flexpen SUBQ SCH ×2 (05:54→11:30)
[2020-01-21 06:02] LABS: ANION GAP 10 mmol/L (5-15); BLOOD UREA NITROGEN 13 mg/dL (7-18); CALCIUM 8.3 MG/DL (8.5-10.1); CARBON DIOXIDE 24 MMOL/L (21-32); CHLORIDE 106 MMOL/L (98-107); CREATININE 0.9 MG/DL (0.55-1.30); PHOSPHORUS 3.5 MG/DL (2.5-4.9); POTASSIUM 3.8 MMOL/L (3.5-5.1); SODIUM 140 MMOL/L (136-145)
[2020-01-21 08:00] VITALS: BP 145/70
[2020-01-21] MEDS: Docusate 100mg cap ORAL SCH (10:00)
[2020-01-21] MEDS: Thiamine 100mg tab ORAL SCH (10:00)
[2020-01-21] MEDS: Heparin 5000 units/ml inj SUBQ SCH (10:00)
--- NOTE | 2020-01-21 10:29 | Nephrology Progress Note ---
Assessment/Plan Plan #CANDELARIA likely pre-renal azotemia in the setting of UTI #Low back pain #UTI #alcohol abuse disorder #DM #anemia - renal function improved - replete mag - IV iron - DC ceftriaxone - monitor UOP - daily weights - avoid nephrotoxins - BG control - monitor hemoglobin - monitor mag, phos, BMP daily Time spent 65 minutes, greater than 50% on care coordination and counseling Subjective ROS Limited/Unobtainable: No Constitutional: Denies: no symptoms, chills, diaphoresis, fever, malaise, weakness, other HEENT: Denies: no symptoms, eye pain, blurred vision, tearing, double vision, ear pain, ear discharge, nose pain, nose congestion, throat pain, throat swelling, mouth pain, mouth swelling, other Genitourinary: Denies: no symptoms, burning, discharge, frequency, flank pain, hematuria, incontinence, pain, urgency, other Neurologic/Psychiatric: Denies: no symptoms, anxiety, depressed, emotional problems, headache, numbness, paresthesia, pre-existing deficit, seizure, tingling, tremors, weakness, other Subjective Cr downtrending mag low iron def noted Objective Objective Last 24 Hour Vital Signs Date Time Temp Pulse Resp B/P (MAP) Pulse Ox O2 Delivery O2 Flow Rate FiO2 01/21/20 08:00 98.4 83 20 145/70 (95) 96 01/21/20 04:28 98.0 78 20 153/83 (106) 97 01/21/20 00:27 98.4 71 18 136/77 (96) 96 01/20/20 21:14 97.9 01/20/20 20:20 Room Air 01/20/20 20:00 98.1 77 19 141/81 (101) 96 01/20/20 16:00 97.9 80 20 145/86 (105) 100 01/20/20 12:00 98.1 79 20 140/80 (100) 100 Intake and Output 01/20/20 01/21/20 19:00 07:00 Intake Total 850 ml 1120 ml Balance 850 ml 1120 ml Intake Oral 300 ml 240 ml IV Total 550 ml 880 ml # Voids 4 5 Laboratory Tests 01/21/20 04:50: White Blood Count 4.9, Red Blood Count 2.71L, Hemoglobin 8.1L, Hematocrit 24.8L , Mean Corpuscular Volume 91, Mean Corpuscular Hemoglobin 29.9, Mean Corpuscular Hemoglobin Concent 32.6, Red Cell Distribution Width 17.7H, Platelet Count 160, Mean Platelet Volume 6.3L, Neutrophils (%) (Auto) , Lymphocytes (%) (Auto) , Monocytes (%) (Auto) , Eosinophils (%) (Auto) , Basophils (%) (Auto) , Sodium Level 140, Potassium Level 3.8, Chloride Level 106 , Carbon Dioxide Level 24, Anion Gap 10, Blood Urea Nitrogen 13, Creatinine 0.9 , Estimat Glomerular Filtration Rate > 60, Glucose Level 93, Calcium Level 8.3L , Phosphorus Level 3.5, Magnesium Level 2.0 Height (Feet): 5 Height (Inches): 4.00 Weight (Pounds): 147 Objective General Appearance: WD/WN, no apparent distress Lines, tubes and drains: peripheral HEENT: normocephalic, atraumatic Neck: non-tender Respiratory/Chest: chest wall non-tender, lungs clear, normal breath sounds Cardiovascular/Chest: normal peripheral pulses Extremities: non-pitting Neurologic: alert, oriented x 3 Virginia Pitt M.D. January 21, 2020 10:29
[2020-01-21] MEDS ORDERED: FLUOXETINE HCL20 MG ORAL (11:40)
[2020-01-21] MEDS ORDERED: MIRTAZAPINE15 M3 ORAL (11:40)
[2020-01-21] MEDS ORDERED: NORVASC2.5 MG ORAL (11:40)
--- NOTE | 2020-01-21 11:49 | Discharge Summary ---
Discharge Summary Hospital Course Date of Admission January 18, 2020 at 16:58 Date of Discharge 01/21/20 Admitting Diagnosis CANDELARIA HPI Virginie Cruz is a 69 year old female who was admitted on January 18, 2020 at 16 :58 for Acute Kidney Injury, Generalized Weakness Consultations Renal,Psychiatry Procedures None Hospital Course 69 year old woman with history of HTN, DM, alcoholism who presented to ED with back pain and frequent falls. Found to have CANDELARIA with peak creat of 1.5, resolved with IV fluids and holding of ACEI and metformin. Also with question of UTI, was given ceftriaxone which was stopped as culture was negative. Seen by Psych who started SSRI and Remeron, will continue upon discharge. Also started on low dose Seen by PT who recommended SNF, will be going to [facility] in stable condition Discharge Diagnoses: #Back pain, frequent falls, gait instability #Pyuria, bacteruria, UTI ruled out #CANDELARIA, improved #Essential hypertension #ETOH dependance #Anxiety #Non-insulin dependant type II DM #Normocytic Anemia I spent 36 minutes on this patient's discharge including coordination with RN, case management, consulting MDs and PCP Discharge Medications New Medications: Amlodipine Besylate (Norvasc) 2.5 Mg Tablet 2.5 MG ORAL DAILY for 30 Days, #30 TAB Fluoxetine Hcl* (Fluoxetine Hcl*) 20 Mg Capsule 20 MG ORAL DAILY for 30 Days, #30 CAP Mirtazapine* (Mirtazapine*) 15 Mg Tablet 7.5 MG ORAL BEDTIME for 30 Days, #30 TAB Continued Medications: Aspirin* (Aspirin*) 81 Mg Tab.chew 81 MG ORAL DAILY for Unknown, TAB Metformin Hcl* (Metformin Hcl*) 500 Mg Tablet 500 MG ORAL DAILY for DM, TAB Discontinued Medications: Benazepril Hcl* (Benazepril Hcl*) 10 Mg Tablet Unknown Dose ORAL DAILY for -, TAB Discharge Condition Upon Discharge: improving Discharge Vital Signs Last Vital Signs Date Time Temp Pulse Resp B/P (MAP) Pulse Ox O2 Delivery O2 Flow Rate FiO2 01/21/20 08:00 98.4 83 20 145/70 (95) 96 01/20/20 20:20 Room Air Discharge Disposition Patient was discharged to SNF Discharge Diagnoses: (1) Alcoholism (2) Type II diabetes mellitus (3) Hypertension (4) CANDELARIA (acute kidney injury) Jian Morrison MD January 21, 2020 11:49
[2020-01-21 12:00] VITALS: BP 132/77
[2020-01-21] MEDS: HYDROcodone/Acetamin 5/325 tab ORAL PRN (14:57)
[2020-01-21 16:00] VITALS: BP 145/84
--- NOTE | 2020-01-22 03:00 | Progress Note ---
DATE: 01/21/2020 SUBJECTIVE: The patient is in bed and doing well. No behavior issues noted. Less anxious. Denies any depressive symptoms. Compliant with medication. MENTAL STATUS EXAMINATION: The patient is alert, oriented times self, place, situation, and date. Mood is anxious. Affect is constricted. Thought process is concrete. Thought content, no suicidal or homicidal ideation. Cognition is intact. Insight and judgment is fair. ASSESSMENT: 1. Anxiety disorder. 2. Alcohol dependence. PLAN: 1. Continue the lorazepam. Continue mirtazapine. 2. Fluoxetine 20 mg. 3. Continue to follow and readjust the medications. Isael Guerra M.D. DR: ANITA JOB#: [id number] CC:
== END 2020-01-21 16:27 | DRG 684 ==
LOC: EDBD 13:51 → EMR 14:15 → EDBEDREQ 15:55 → 3E 16:58 → EDBEDREQ 17:45 → 3E 01-19 18:57
DX: N17.9 Acute kidney failure, unspecified (principal); R29.6 Repeated falls; M54.5 Low back pain; R26.9 Unspecified abnormalities of gait and mobility; R82.81 Pyuria; F10.20 Alcohol dependence, uncomplicated; I10 Essential (primary) hypertension; E11.9 Type 2 diabetes mellitus without complications; F41.9 Anxiety disorder, unspecified; Z79.84 Long term (current) use of oral hypoglycemic drugs; Z79.82 Long term (current) use of aspirin; D64.9 Anemia, unspecified
CPT/HCPCS: 36415; 72131; 80048; 80053; 80307; 81003; 82044; 82570; 82728; 82962; 83540; 83550; 83735; 84100; 84300; 85007; 85025; 87086; 96365; 96375; 99285; J1815; J7030; J8499